=== PATIENT | female | born 1990 | race Caucasian/White ===

== ENCOUNTER → 2018-04-25 16:18 | Outpatient (CLI) | payer BC, SELFPAY | PROVIDERS: Visit Provider Obstetrics & Gynecology | DX: Z12.4 Encounter for screening for malignant neoplasm of cervix (principal); Z11.3 Encounter for screening for infections with a predominantly sexual mode of transmission ==

== ENCOUNTER → 2018-05-15 14:29 | Outpatient (CLI) | payer BC, SELFPAY ==
[2018-05-15 15:54] LABS: Absolute Lymphocyte Count 1.27 X10^3/ul (0.83-4.51); Absolute Neutrophil Count 3.3 X10^3/uL (2.0-7.7); Basophil# 0.01 X10^3/uL; Basophil% 0.2 % (0-1); Hematocrit 36.6 % (37-47); Hemoglobin 12.3 g/dl (12.0-15.0); Lymphocyte # 1.27 X10^3/ul (4.0); Lymphocyte % 25.3 % (19-41); Mean Corp Hgb Conc 33.6 g/gl (32-36); Mean Corpuscular Volume 89.3 fL (81-99); Mean Platelet Vol. 9.9 fl (6.2-12.0); Monocyte# 0.37 X10^3/uL; Monocyte% 7.4 % (0-10); Neutrophil # 3.27 X10^3/uL (2.7-7.7); Neutrophil % 65.1 % (47-70); Platelet Count 241 K/mm3 (150-450); RBC Distribution Width CV 11.9 % (11.6-14.6); RBC Distribution Width SD 38.5 fl (35.1-43.9)
[2018-05-15 15:56] LABS: POSITIVE COUNT NO; POSITIVE DIFFERENTIAL NO; POSITIVE MORPHOLOGY NO
[2018-05-15 16:06] LABS: Color, Urine Yellow (Yellow); Glucose, Dipstick Normal (Normal); Ketone-Dipstick Negative (Negative); Leukocyte Esterase-Dipstick Negative /ul (Negative); Nitrite-Dipstick Negative (Negative); Occult Blood-Urine Negative /ul (Negative); Protein-Dipstick Negative (Negative); Specific Gravity, Urine 1.025 (1.002-1.030); Urine Bilirubin Dipstick Negative (Negative); Urine Clarity Clear (Clear); Urine Urobilinogen Normal (Normal)
[2018-05-15 17:00] LABS: HIV - WCH Non-Reactive (Nonreactive); Rubella IgG 461.6 IU/mL
[2018-05-15 17:34] LABS: Amphetamine Urine VISTA NEGATIVE (<1000 ng/mL); Barbiturate Urine VISTA NEGATIVE (< 200 ng/mL); Benzodiazepine Urine VISTA NEGATIVE (< 200 ng/mL); Cocaine Urine VISTA NEGATIVE (< 300 ng/mL); Ecstacy Urine VISTA NEGATIVE (< 500 ng/mL); Methadone Urine VISTA NEGATIVE (< 300 ng/mL); PCP Urine VISTA NEGATIVE (< 25 ng/mL); THC Urine VISTA NEGATIVE (< 50 ng/mL); Vista UDS pH Range 5
[2018-05-17 11:20] LABS: HEPATITIS B SURFACE AG Negative (Negative); Hep C Antibodies <0.1 s/co ratio (0.0-0.9)
[2018-05-19 03:49] LABS: Prenatal RPR NONREACTIVE (NONREACTIVE)
== END ==
PROVIDERS: Visit Provider Obstetrics & Gynecology
DX: Z34.81 Encounter for supervision of other normal pregnancy, first trimester (principal)
CPT/HCPCS: 36415; 80307; 81002; 84443; 85025; 86703; 86762; 86803; 87340

== ENCOUNTER → 2018-09-25 09:08 | Outpatient (CLI) | payer BC, SELFPAY ==
[2018-09-25 11:01] LABS: Hematocrit 30.8 % (37-47); Hemoglobin 10.3 g/dl (12.0-15.0); Mean Corp Hgb Conc 33.4 g/gl (32-36); Mean Corpuscular Hgb 30.2 pg (27.0-32.0); Mean Corpuscular Volume 90.3 fL (81-99); Mean Platelet Vol. 9.5 fl (6.2-12.0); Platelet Count 203 K/mm3 (150-450); RBC Distribution Width SD 39.5 fl (35.1-43.9); Red Blood Count 3.41 M/mm3 (4.2-5.4); White Blood Count 6.8 K/mm3 (4.4-11.0)
[2018-09-25 11:05] LABS: Glucose Challenge Gest 1H 50g 72 mg/dL (70-140); Scan Indicated on CBC? Y/N NO
== END ==
PROVIDERS: Visit Provider Obstetrics & Gynecology
DX: Z34.83 Encounter for supervision of other normal pregnancy, third trimester (principal)
CPT/HCPCS: 36415; 82950; 85027; 86850; 86900

== ENCOUNTER → 2018-11-20 10:40 | Outpatient (CLI) | payer BC, SELFPAY | PROVIDERS: Visit Provider Obstetrics & Gynecology | DX: Z36.85 Encounter for antenatal screening for Streptococcus B (principal) | CPT/HCPCS: 87077; 87081; 87186 ==

== ENCOUNTER 2018-12-17 21:30 | Outpatient (CLI) | payer BC, SELFPAY ==
[2018-12-17 22:01] VITALS: BMI 28.6
--- NOTE | 2018-12-17 23:55 | OB.TRI.NOTE ---
- Problem List (1) False labor Status: Acute History of Present Illness Date of Service: 12/17/18 Was patient seen by the physician?: No Reason For Visit: R/O LABOR Final EPI: 12/17/18 Final EPI Source: US <20 weeks Gestational age: 40 Weeks History of Present Illness: 28-yo with c/o contractions Allergies Sulfa (Sulfonamide Antibiotics) Allergy (Verified 12/17/18 21:59) Hives NST - FHR Rate Baby A Baseline: 125 Accelerations:: 15 x 15 Decelerations:: None NST Reactive:: Yes FHR Category:: Category I Uterine Activity:: 2-4/10 min Impression/Plan 28yo @ 40wga with false labor, Cat I FHR -SVE unchanged x 2 -d/c home
== END 2018-12-17 23:50 | disposition home or self-care (01) ==
LOC: WPOUT 21:36 → WP 21:36
PROVIDERS: Visit Provider Obstetrics & Gynecology
DX: O47.1 False labor at or after 37 completed weeks of gestation (principal); Z3A.40 40 weeks gestation of pregnancy
CPT/HCPCS: 59025; 59050; 99218; G0378

== ENCOUNTER 2018-12-18 09:35 | Inpatient (IN) | payer BC, SELFPAY ==
[2018-12-17 22:01] VITALS: BMI 28.6
[2018-12-18 09:55] VITALS: BMI 28.6
[2018-12-18] MEDS: Lactated Ringers 1,000 ML 50 ML IV ×3 (10:00→16:57)
[2018-12-18 10:18] LABS: Absolute Lymphocyte Count 1.02 X10^3/ul (0.83-4.51); Absolute Neutrophil Count 7.7 X10^3/uL (2.0-7.7); Basophil# 0.01 X10^3/uL; Basophil% 0.1 % (0-1); Eosinophil# 0.01 X10^3/uL; Eosinophils% 0.1 % (0-5); Hematocrit 31.7 % (37-47); Hemoglobin 10.6 g/dl (12.0-15.0); Lymphocyte # 1.02 X10^3/ul (4.0); Mean Corp Hgb Conc 33.4 g/gl (32-36); Mean Corpuscular Hgb 28.1 pg (27.0-32.0); Mean Corpuscular Volume 84.1 fL (81-99); Mean Platelet Vol. 10.7 fl (6.2-12.0); Monocyte% 5.4 % (0-10); Neutrophil # 7.72 X10^3/uL (2.7-7.7); Neutrophil % 83.2 % (47-70); Platelet Count 235 K/mm3 (150-450); RBC Distribution Width CV 12.5 % (11.6-14.6); RBC Distribution Width SD 38.2 fl (35.1-43.9); Red Blood Count 3.77 M/mm3 (4.2-5.4); White Blood Count 9.3 K/mm3 (4.4-11.0)
[2018-12-18 10:19] LABS: POSITIVE COUNT NO; POSITIVE DIFFERENTIAL NO; POSITIVE MORPHOLOGY NO
[2018-12-18] MEDS: fentaNYL-bupivacaine (epidural) 100 ML BAG EPIDURAL ×2 (11:05→16:18)
[2018-12-18] MEDS: Oxytocin 30 units/NS 500 ml 30 UNITS/500 ML IV.SOLN IV (12:53)
--- NOTE | 2018-12-18 13:21 | NURSING ---
This nursing staff development coordinator reviewed the documentation completed by Familia Bueno and also observed the IV insertion.
--- NOTE | 2018-12-18 17:32 | PCM.PN.BLA ---
Progress Note LABOR PROGRESS NOTE Epidural redosed, comfortable. AVSS pitocin at 4 mIU/min EFM 130-140s avg variability. Accels noted. Variables noted. UCs q 1 1/2 - 3 1/2 mins CX: 6/100/-1 VTX LOP Bloody show noted. Scant bld tinge in catheter tubing. A/P: 40 3/7 wk labor. epidural; AROM and Pitocin augmentation. Anticipate . Position changes to facilitate rotation descent. Anticipate
[2018-12-18] MEDS: Amnioinfusion- 0.9% NS 1,000 ML IV.SOLN. INTRA-UTER (17:45)
[2018-12-18] MEDS: Ondansetron 4 MG/2 ML Vial IV (18:44)
[2018-12-18] MEDS: Oxytocin 30 units/NS 500 ml 30 UNITS/500 ML IV.SOLN 334 UNITS IV (21:39)
--- NOTE | 2018-12-18 22:01 | PCM.OB.VAG ---
Vaginal Delivery Maternal Presentation: Active Labor 40 3/7 wkl UCs Amniotic Membrane Rupture Type: Artificial Amniotic Fluid Description: Clear Final EPI: 12/15/18 Final EPI Source: US <20 weeks Gestational age: 40 Weeks and 3 Days Date of Procedure: 12/18/18 Pre-Operative Diagnosis: 40 3/7 wk labor Post-Operative Diagnosis: same Surgery/ Procedure Performed: Vacuum Assisted Vaginal Delivery - at +2 station due to maternal exhaustion. Epidural in place, not working. Uribe catheter in place. Fully dilated Type of Anesthesia: None Description of Procedure: Single pull in green zone at +2 station with uribe catheter in place, epidural catheter in place but not working. Resulted in vaginal delivery of a malin male. Ap 8/9 over intact perineum to 2nd deg posterior vaginal laceration. CAN x one reduced. Shoulders delivered easily. Infant to maternal abdomen for stimulation. Insurance Sales Supervisor, RT, and additional nursing in room 2/2 vacuum assist PP exam repair needed 2nd deg posterior vaginal and perineal laceration. 1% lidocaine and 3-0 vicryl for this. Placenta delivered by spont expulsion 3V cord, normal appearing intact with trailing membranes. Pt and infant tolerated delivery well to recovery stable. Ray clayton and needle counts correct x two. Sharps to sharp container EBL 300 cc Presentation: Vertex, SISSY Placental Delivery Description: Spontaneous, Expressed Placenta Disposition: [facility] Cord Vessel Description: 3 Vessels Cord Gases drawn per routine: VBG Cord Entanglement: Around neck x 1, loose Drain: Uribe to straight drain Estimated Blood Loss: 300 A gender: Male (1 minute): 8 (5 minute): 9 Episiotomy Description: None Laceration: Midline, Perineal Extension/lac, Vaginal Extension/lac - repaired under 1% lidocaine local to hemostatic, intact with 3-0 vicryl., 2nd degree Medications given after delivery: IV Pitocin Complications: None
--- NOTE | 2018-12-18 22:07 | PCM.DCVAG ---
Discharge Diet: No Restrictions May resume sexual activity in: 4-6 weeks Additional Activity Instructions:: Nothing in the vagina for 4-6 weeks. You may return to work/school in 6 weeks. Additional Instructions: If you experience any of the following, contact your healthcare provider. Bleeding that soaks a pad every hour for 2 hours Fever 100.4 or higher Unrelieved abdominal pain Problems urinating (including inability to urinate or burning while urinating). Visual changes Severe headache Flu-like symptoms Pain or redness in one of both of your breasts Pain, warmth, tenderness or swelling in your legs, especially the calf area Frequent nausea and vomiting Symptoms of depression or anxiety If you experience any of the following, call 911 or go to the nearest Emergency Room. Chest pain Problems breathing Seizure activity Partial or complete paralysis of a body part, slurred speech, weakness or drooping of the face, or a sudden inability to walk or hold your balance Allergies/Adverse Reactions: Allergies Sulfa (Sulfonamide Antibiotics) Allergy (Verified 12/17/18 21:59) Hives Medications to take at Discharge Vit No.130/Iron/Folic [ Tablet] 1 tab PO DAILY 12/17/18 Please Follow Up With: Fe Pathak MD - [phone] When: Call to make an appointment with your doctor in 6 weeks. Test Results: Test results from this visit will be discussed in further detail at your follow-up appointment, if applicable. Proposed Discharge Date: 12/20/18
[2018-12-18] MEDS: Oxytocin 30 units/NS 500 ml 30 UNITS/500 ML IV.SOLN 167 UNITS IV (22:09)
--- NOTE | 2018-12-18 22:09 | DCINST_ITS ---
Discharge Diet: No Restrictions May resume sexual activity in: 4-6 weeks Additional Activity Instructions:: Nothing in the vagina for 4-6 weeks. You may return to work/school in 6 weeks. Additional Instructions: If you experience any of the following, contact your healthcare provider. * Bleeding that soaks a pad every hour for 2 hours * Fever 100.4 or higher * Unrelieved abdominal pain * Problems urinating (including inability to urinate or burning while ur inating). * Visual changes * Severe headache * Flu-like symptoms * Pain or redness in one of both of your breasts * Pain, warmth, tenderness or swelling in your legs, especially the calf area * Frequent nausea and vomiting * Symptoms of depression or anxiety If you experience any of the following, call 911 or go to the nearest Emergency Room. * Chest pain * Problems breathing * Seizure activity * Partial or complete paralysis of a body part, slurred speech, weakness or drooping of the face, or a sudden inability to walk or hold your balance Allergies/Adverse Reactions: Allergies Sulfa (Sulfonamide Antibiotics) Allergy (Verified 12/17/18 21:59) Hives Medications to take at Discharge Vit No.130/Iron/Folic [ Tablet] 1 tab PO DAILY 12/17/18 Please Follow Up With: Fe Pathak MD - [phone] When: Call to make an appointment with your doctor in 6 weeks. Test Results: Test results from this visit will be discussed in further detail at your follow- up appointment, if applicable. Proposed Discharge Date: 12/20/18
[2018-12-19] VITALS: BP 118/68; PULSE 83; RESP 16; TEMP 37; O2SAT 98
[2018-12-19] MEDS: Acetaminophen 500 MG Tablet 1000 MG PO ×2 (02:12→17:23)
[2018-12-19 04:20] VITALS: BP 106/55; PULSE 66; RESP 15; TEMP 36.6; O2SAT 96
[2018-12-19] MEDS: Ibuprofen 600 MG Tablet PO (07:44)
--- NOTE | 2018-12-19 08:28 | PCM.PN.OB ---
Subjective: PPD#1 vacuum asisted vaginal delivery doing well. Tylenol prn for pain. - Physical Exam General: Alert, Oriented x3, Cooperative, No apparent distress HEENT: Atraumatic Neck: Supple Abdomen: Soft - Fundus firm NT at umbilicus Psych/Mental Status: Normal Affect Vital Signs Temp Pulse Resp BP Pulse Ox 97.8 F 66 15 106/55 L 96 12/19/18 04:20 12/19/18 04:20 12/19/18 04:20 12/19/18 04:20 12/19/18 04:20 Oxygen Delivery Method Room Air Weight: 83.007 kg Body Mass Index (BMI) 28.6 Intake and Output for Last 24 Hours 12/17/18 12/18/18 12/19/18 23:59 23:59 23:59 Intake Total 3349 / 3349 834 / 834 Output Total 300 / 300 950 / 950 Balance 3049 / 3049 -116 / -116 Laboratory Tests Past 24 Hrs 12/18/18 12/18/18 10:00 10:00 WBC 9.3 RBC 3.77 L Hgb 10.6 L Hct 31.7 L MCV 84.1 MCH 28.1 MCHC 33.4 RDW 12.5 RDW Differential 38.2 Plt Count 235 MPV 10.7 Immature Gran % (Auto) 0.200 Neut % (Auto) 83.2 H Lymph % (Auto) 11.0 L Hardee % (Auto) 5.4 Eos % (Auto) 0.1 Baso % (Auto) 0.1 Absolute Neuts (auto) 7.7 Absolute Lymphs (auto) 1.02 Total Counted Not Reportable Blood Type A POSITIVE Antibody Screen NEGATIVE Medical Necessity - Tobacco Use Smoking Status: Never smoker Assessment/Plan PPD#1 vaginal delivery, vacuum assisted Stable pp. Continue care GBS positive, adequate tx in labor
[2018-12-19 08:35] VITALS: BP 126/77; PULSE 68; RESP 18; TEMP 36.4
[2018-12-19 12:00] VITALS: BP 111/71; PULSE 81; RESP 17; TEMP 36.6
[2018-12-19] MEDS: Prenatal Vits Tablet 1 TABLET PO (12:54)
[2018-12-19 17:00] VITALS: BP 111/69; PULSE 91; RESP 14; TEMP 36.8
[2018-12-19 21:11] VITALS: BP 106/70; PULSE 79; RESP 17; TEMP 36.6; O2SAT 98
[2018-12-20 01:47] VITALS: BP 123/54; PULSE 71; RESP 17; TEMP 36.4; O2SAT 97
[2018-12-20] MEDS: Ibuprofen 600 MG Tablet PO ×2 (01:57→11:27)
--- NOTE | 2018-12-20 07:49 | PCM.PN.OB ---
Subjective: PPD#2 vaginal delivery, vacuum assisted. Doing e2wll. Nursing, and using nipple haro to help with this. Baby sleeping a lot. Baby is in SCN. Hypoglycemia. Pain control adequate. Reviewed hotel status if baby is not released. - Physical Exam General: Alert, Oriented x3, Cooperative, No apparent distress HEENT: Atraumatic Neck: Supple Abdomen: Soft - Fundus firm NT at 1-2 cm inferior to umbilicus Psych/Mental Status: Normal Affect Vital Signs Temp Pulse Resp BP Pulse Ox 97.6 F L 71 17 123/54 H 97 12/20/18 01:47 12/20/18 01:47 12/20/18 01:47 12/20/18 01:47 12/20/18 01:47 Oxygen Delivery Method Room Air Weight: 83.007 kg Body Mass Index (BMI) 28.6 Intake and Output for Last 24 Hours 12/18/18 12/19/18 12/20/18 23:59 23:59 23:59 Intake Total 3349 / 3349 834 / 834 Output Total 300 / 300 950 / 950 Balance 3049 / 3049 -116 / -116 Medical Necessity - Tobacco Use Smoking Status: Never smoker Assessment/Plan PPD#2 vaginal delivery, vacuum assisted Stable pp. Dischg home today. To hotel if baby is not released (baby is in SCN due to hypoglycemia)
[2018-12-20 09:00] VITALS: BP 125/71; PULSE 81; RESP 20; TEMP 36.6; O2SAT 100
[2018-12-20] MEDS: Senna/Docusate Sodium 1 Tablet PO (09:17)
[2018-12-20] MEDS: Prenatal Vits Tablet 1 TABLET PO (09:17)
--- NOTE | 2018-12-21 15:15 | CASEMGMT ---
Social Work Labor and Delivery Unit Referral date: 12.19.2017 Referral source: software program manager Dr. Loving Date of intervention: 12.21.2017, [id number] Reason for referral: Baby transferred into the [facility].?; Upon chart review also noted that mother of baby is a first time mother and maternal history of depression. ? History obtained from:?Medical record and patient/mother of baby (ELAYNE) Marycarmen Solomon. ??This automobile and property underwriter is the primary social group worker for the labor and delivery unit at [facility]. ??For continuity of care of families on the [facility] this automobile and property underwriter also provides social work services to the [facility]. ? Household composition:?MOB lives with her parents. ?Intends to take mary Mallory to this home. ?MOB reports home situation is safe and adequate. ?? ? Patient's parent/guardian status:?ELAYNE Solomon is age 30 and FOB is Nabil Peters. ??MOB and FOB are currently together and involved for about a year. ??FOB has 2 other children from a previous relationship, ages 3 and 5 years old. ??Mary Mallory is the first child for MOB. ?? ? Medical History:?MOB is G2, P0 to 1 after delivering Mohamud. ?MOB with care starting at 9 weeks gestation. ??Medical records indicate MOB has history of narcolepsy. ??Mary Mallory born on 12.18.2020 weighing 8 pounds 11 ounces. ?apgars 8 and 9 at 1 and 5 minutes of life. ?? Educational Status:??MOB has a college degree in the sciences. ?No issues with reading, writing, or learning comprehension. ? Health Care Coverage:?[employer] ? 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 ??Will be able to take up to 12 weeks maternity leave if needed or desired. ?6 weeks will be financially covered. ? Childcare/Caregiver(s):?MOB and then supplemental help from MOB's parents.?? ? Transportation:?No issues. ? Programs/Agencies Involved:?No agency involvement. ??Denies being eligible for WIC. ?Declines Help [facility] referral. ? Behavioral Health Issues:?MOB reports as a teen was in counseling and on medication for depression. ??MOB reports as an adult no issues. Denies any thoughts, plans, intent or attempts regarding suicide currently or in the past. ???MOB denies any drug and alcohol usage for self. ?Does drink socially but not while . ?Negative drug screen done prenatally on 05.15.2019. ???MOB reports there is some history of depression and/or anxiety; did not expand on which. ? ? Family Stressors:? unplanned and MOB did have a hard time initially as had just gotten and one of the reasons for such is that ex- did not want to have children. ?MOB reports that becoming so quickly was an adjustment but MOB is accepting and reports to feel a connection to this baby. ??Baby going into the [facility] was stressful but MOB reports things are looking in a positive light for baby, so this has been helpful. ? ? Support Systems:?MOB reports FOS Nabil is a good support to MOB. ?MOB reports her parent and friends are also supportive. ?MOB will have help from family at home going. ? Assessment MOB pleasant and cooperative with social work assessment. ?MOB was already discharged as a patient from [facility] but continues to stay on the labor and delivery unit as a courtesy and in order to be close to baby and provide care while baby continues with hospitalization. MOB held good eye contact and was polite. ?MOB reports to have enough support when returns home with baby, and reports to have needed supplies to care for baby. ?MOB reports plan to provide breast milk and if needs to supplement with formula will be okay with this. ?MOB reports ability to purchase formula. ??MOB reports to feel a connection to baby as well. ??MOB listened to education on depression, risks for such, and importance of seeking out help and support should symptoms arise. ?MOB able to give appropriate responses to shaken baby prevention and safe sleeping. ??MOB denies any needs for home going but did accept a [facility] resources list, as well as a depression packet for home going. ?No identified concerns by nursing regarding Mother/child interactions or bonding. ? ? Plan MOB has already been discharged as a patient. MOB will continue to stay in a courtesy room on the labor and delivery unit as space allow whiel baby is admitted to the [facility]. Plan for Baby to discharge home to MOB when medically stable. ?Resource information given to MOB for home going but declines referrals to services [place] [facility] [place] No other needs requested or indicated. -Princess Deshawn, BARGE HAND-S, NEGATIVE SPOTTER
== END 2018-12-20 11:30 | disposition home or self-care (01) | DRG 807 ==
PROVIDERS: Admitting Provider Obstetrics & Gynecology; Referring Provider Obstetrics & Gynecology; Visit Provider Obstetrics & Gynecology
DX: O75.81 Maternal exhaustion complicating labor and delivery (principal); Z37.0 Single live birth; G47.421 Narcolepsy in conditions classified elsewhere with cataplexy; O70.1 Second degree perineal laceration during delivery; O69.81X0 Labor and delivery complicated by cord around neck, without compression, not applicable or unspecified; O99.824 Streptococcus B carrier state complicating childbirth; Z3A.40 40 weeks gestation of pregnancy
CPT/HCPCS: 59025; 59050; 85025; 86850; 86900; 99218; J7030; J7120; G0378; J0290; J2405

== ENCOUNTER → 2020-02-13 13:42 | Outpatient (CLI) | payer BC, SELFPAY ==
[2020-02-15 20:07] LABS: Age Gdln ACOG Testing 30-65 (.)
[2020-02-15 21:21] LABS: HPV APTIMA, High Risk Negative (Negative); HPV Reflexed? YES, CHARGE PATIENT
== END ==
PROVIDERS: Visit Provider Obstetrics & Gynecology
DX: Z12.4 Encounter for screening for malignant neoplasm of cervix (principal)
CPT/HCPCS: 87624; 88175; G0145

== ENCOUNTER 2020-12-24 14:02 | Outpatient (RCR) | payer OTHER, SELFPAY | END 2021-02-24 23:59 | LOC: IMMUN 14:02 | PROVIDERS: PCP Family Medicine; Visit Provider Family Medicine | DX: Z23 Encounter for immunization (principal) | CPT/HCPCS: 0001A; 0002A; 91300 ==

== ENCOUNTER → 2022-12-08 | Outpatient (CLI) | payer OTHER, SELFPAY ==
[2022-12-10 22:07] LABS: Chlamydia By Nucleic Acid AMP Negative (Negative)
[2022-12-11 08:55] LABS: Gonococcus By Nucleic Acid AMP Negative (Negative)
== END | disposition home or self-care (01) ==
LOC: LABSPEC 16:56
PROVIDERS: Visit Provider Advanced Practice Midwife
DX: Z76.89 Persons encountering health services in other specified circumstances (principal)
CPT/HCPCS: 87491; 87591

== ENCOUNTER → 2023-10-20 | Outpatient (CLI) | payer OTHER, SELFPAY ==
--- OUTSIDE RECORDS SUMMARY | 2023-10-20 19:36 | XMS RPT_ITS | CCD ---
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 Name Role Phone Unavailable Primary Care Provider UnavailAlejandro Sanchez MD Primary Care Provider Alejandro Mc MD Primary Care Provider Alejandro Mc MD Primary Care Provider KAYLEY WEINSTEIN JR Referring Unavailable ALEJANDRO MC Primary Care Unavailable ALEJANDRO MC Primary Care Unavailable KAYLEY WEINSTEIN JR Attending Unavailable ALEJANDRO MC Primary Care Unavailable KATHRIN ALONZO Attending Unavailable ALBERT ALEJANDRO Beverly Primary Care Unavailable JESU MCGINNIS Attending Unavailpati MC ALEJANDRO Beverly Primary Care Unavailable YO LIGHT Attending Unavailable ALBERT ALEJANDRO [facility] Primary Care Unavailable Allergies Allergy Classification Reported Allergen(s) Allergy Type Date of Onset Reaction(s) Facility (12 sources) Sulfonamides (Antibiotic); Translations: [SULFA (SULFONAMIDE ANTIBIOTICS)] Drug Allergy 03-08-2006 [facility] Work Phone: Medications Current Medications Medication Drug Class(es) Dates Sig (Normalized) Sig (Original) amoxicillin 500 mg oral tablet (1 source) Penicillin-class Antibacterial Start: 03-25-2023 End: 04-04-2023 take 1 tablet by mouth twice daily Amoxicillin 500 mg tablet Take 1 tablet by mouth twice daily for 10 days. 20 tablet 0 03/25/2023 04/04/2023 Active Completed/Discontinued Medications Medication Drug Class(es) Dates Sig (Normalized) Sig (Original) [id number] 200 actuat albuterol 0.09 mg/actuat metered dose inhaler (17 sources) beta2-Adrenergic Agonist Start: 02-13-2022 take 2 puff(s) by inhalation every six hours as needed albuterol HFA (PROAIR HFA) 90 mcg/actuation inhaler Inhale 2 Puffs as instructed every 6 hours as needed. 1 Inhaler 0 02/13/2022 Active Problems Active Problems Problem Classification Problem Date Documented Date Episodic/Chronic Chronic obstructive pulmonary disease and bronchiectasis (1 source) Bronchitis; Translations: [Bronchitis, not specified as acute or chronic] Episodic Nutritional deficiencies (1 source) Vitamin D deficiency; Translations: [Vitamin D deficiency, unspecified] Chronic Other aftercare (2 sources) Drug therapy finding; Translations: [Other custodial (current) drug therapy] Episodic Other aftercare (1 source) Other custodial (current) drug therapy; Translations: [On stimulant medication] Onset: 04-29-2023 Episodic Other hereditary and degenerative nervous system conditions (15 sources) Restless legs; Translations: [Restless legs syndrome] Onset: 01-01-2015 01-01-2015 Chronic Other hereditary and degenerative nervous system conditions (1 source) Restless legs syndrome; Translations: [RLS (restless legs syndrome)] Onset: 01-01-2015 Chronic Other upper respiratory infections (1 source) Streptococcal sore throat; Translations: [Streptococcal pharyngitis] Episodic Residual codes; unclassified (11 sources) Sleeptalking; Translations: [Other sleep disorders] Onset: 01-01-2015 01-01-2015 Chronic Residual codes; unclassified (17 sources) 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; Translations: [Idiopathic hypersomnia with long sleep time] Onset: 03-26-2015 03-26-2015 Chronic Residual codes; unclassified (1 source) Idiopathic hypersomnia with long sleep time; Translations: [Idiopathic hypersomnia with long sleep time] Onset: 03-26-2015 Chronic Past or Other Problems Problem Classification Problem Date Documented Da te Episodic/Chronic Immunizations and screening for infectious disease (6 sources) Patient encounter status; Translations: [Encounter for immunization] Onset: 07-12-2022 Episodic Nutritional deficiencies (12 sources) Iron deficiency; Translations: [Iron deficiency] Onset: 01-01-2015 03-26-2015 Episodic Other screening for suspected conditions (not mental disorders or infectious disease) (2 sources) Cancer cervix screening status; Translations: [Encounter for screening for malignant neoplasm of cervix] Onset: 07-12-2022 Episodic Results Test Name Value Interpretation Reference Range Facil ity Vital Signs Date Time Vital Sign Value Performing Clinician Kolton santiago 03-25-2023 07:53-0400 Body temperature 98.8 [degF] Candelaria Athy PA-C Work Phone: [facility] 03-25-2023 07:53-0400 Body weight 73.66 kg Candelaria Athy PA-C Work Phone: [facility] 03-25-2023 07:53-0400 Diastolic blood pressure 70 mm[Hg] Candelaria Athy PA-C Work Phone: [facility] 03-25-2023 07:53-0400 Heart rate 97 /min Candelaria Athy PA-C Work Phone: [facility] 03-25-2023 07:53-0400 Respiratory rate 18 /min Candelaria Athy PA-C Work Phone: [facility] 03-25-2023 07:53-0400 SaO2% (BldA) [Mass fraction] 98 % Candelaria Athy PA-C Work Phone: [facility] 03-25-2023 07:53-0400 Systolic blood pressure 120 mm[Hg] Candelaria Athy PA-C Work Phone: [facility] 03-03-2023 11:08-0400 Body height 170.2 cm Kayley Weinstein Jr., MD Work Phone: [facility] 03-03-2023 11:08-0400 Body weight 73.85 kg Kayley Weinstein Jr., MD Work Phone: [facility] 03-03-2023 11:08-0400 Diastolic blood pressure 80 mm[Hg] Kayley Weinstein Jr., MD Work Phone: [facility] 03-03-2023 11:08-0400 Heart rate 94 /min Kayley Weinstein Jr., MD Work Phone: [facility] 03-03-2023 11:08-0400 SaO2% (BldA) [Mass fraction] 99 % Kayley Weinstein Jr., MD Work Phone: [facility] 03-03-2023 11:08-0400 Systolic blood pressure 127 mm[Hg] Kayley Weinstein Jr., MD Work Phone: [facility] 07-12-2022 07:38-0400 Body weight 71.67 kg Kathrin Alonzo LACTATION SPECIALIST.CORPORATE CLAIMS EXAMINER Work Phone: [facility] 07-12-2022 07:38-0400 Diastolic blood pressure 72 mm[Hg] Kathrin Alonzo LACTATION SPECIALIST.CORPORATE CLAIMS EXAMINER Work Phone: [facility] 07-12-2022 07:38-0400 Heart rate 83 /min Kathrin Alonzo LACTATION SPECIALIST.CORPORATE CLAIMS EXAMINER Work Phone: [facility] 07-12-2022 07:38-0400 Respiratory rate 16 /min Kathrin Alonzo LACTATION SPECIALIST.CORPORATE CLAIMS EXAMINER Work Phone: [facility] 07-12-2022 07:38-0400 SaO2% (BldA) [Mass fraction] 99 % Kathrin Alonzo LACTATION SPECIALIST.CORPORATE CLAIMS EXAMINER Work Phone: [facility] 07-12-2022 07:38-0400 Systolic blood pressure 116 mm[Hg] Kathrin Alonzo LACTATION SPECIALIST.CORPORATE CLAIMS EXAMINER Work Phone: [facility] 02-13-2022 10:19-0400 Body temperature 98.6 [degF] Candelaria Athy PA-C Work Phone: [facility] 02-13-2022 10:19-0400 Body weight 72.12 kg Candelaria Athy PA-C Work Phone: [facility] 02-13-2022 10:19-0400 Diastolic blood pressure 94 mm[Hg] Candelaria Athy PA-C Work Phone: [facility] 02-13-2022 10:19-0400 Heart rate 107 /min Candelaria Athy PA-C Work Phone: [facility] 02-13-2022 10:19-0400 Respiratory rate 24 /min Candelaria Jessica PA-C Work Phone: [facility] 02-13-2022 10:19-0400 SaO2% (BldA) [Mass fraction] 98 % Candelaria Jessica PA-C Work Phone: [facility] 02-13-2022 10:19-0400 Systolic blood pressure 138 mm[Hg] Candelaria Jessica PA-C Work Phone: [facility] Encounters Encounter Date Encounter Type Care Provider Facility Start: 06-07-2023 Telephone encounter Kayley Weinstein MD Work Phone: Neurology Procedures Date Procedure Procedure Detail Performing Clinician Start: 03-25-2023 STREP A MOLECULAR (POC) Evert Lyn APRN.ELECTRONICS ASSEMBLER AND TESTER Work Phone: Start: 07-12-2022 INFLUENZA VACCINE QUADRIVALENT 6 MO - 64 YRS IM Kathrin Alonzo LACTATION SPECIALIST.CORPORATE CLAIMS EXAMINER Work Phone: Start: 07-12-2022 PFIZER-BIONTECH COVI D-19 BIVALENT BOOSTER VACCINE, AGE 12+ YR Kathrin Alonzo LACTATION SPECIALIST.CORPORATE CLAIMS EXAMINER Work Phone: Start: 05-13-2022 Adult depression scr eening assessment Lakisha Rojo LACTATION SPECIALIST.ELECTRONICS ASSEMBLER AND TESTER Work Phone: Start: 02-13-2022 Adult depression scr eening assessment Lakisha Rojo LACTATION SPECIALIST.ELECTRONICS ASSEMBLER AND TESTER Work Phone: Start: 10-28-2021 Adult depression scr eening assessment Candelaria Jessica PA-C Work Phone: Plan of Treatment Date Care Activity Detail Author Start: 02-07-2024 Urine microalbumin profile [facility] Start: 07-12-2023 HPV TESTING HPV TESTING [facility] Immunizations Immunization Date Immunization Notes Care Provider Malina horowitz 07-12-2022 COVID-19 booster vaccine, age 12+ yr, bivalent (PFIZER-BIONTECH) Kathrin Alonzo LACTATION SPECIALIST.CORPORATE CLAIMS EXAMINER Work Phone: [facility] Work Phone: 07-12-2022 influenza, injectabl e, quadrivalent, contains preservative Kathrin Alonzo LACTATION SPECIALISTAnaCORPORATE CLAIMS EXAMINER Work Phone: [facility] Work Phone: 07-12-2022 influenza virus vacc ine, unspecified formulation Kayley Weinstein Jr., MD Work Phone: [facility] 02-06-2014 tetanus toxoid, redu natanael diphtheria toxoid, and acellular pertussis vaccine, adsorbed Candelaria Athy PA-C Work Phone: [facility] 04-13-2007 meningococcal polysaccharide vaccine (MPSV4) Candelaria Athy PA-C Work Phone: [facility] 03-24-2004 diphtheria and tetan us toxoids, adsorbed for pediatric use Candelaria Athy PA-C Work Phone: [facility] Work Phone: 03-14-2002 hepatitis B vaccine, pediatric or pediatric/adolescent dosage Candelaria Athy PA-C Work Phone: [facility] Work Phone: 04-07-2001 hepatitis B vaccine, pediatric or pediatric/adolescent dosage Candelaria Athy PA-C Work Phone: [facility] Work Phone: 02-27-2001 hepatitis B vaccine, pediatric or pediatric/adolescent dosage Candelaria Athy PA-C Work Phone: [facility] Work Phone: 02-27-2001 measles, mumps and rubella virus vaccine Candelaria Athy PA-C Work Phone: [facility] Work Phone: 11-24-1993 diphtheria and tetan us toxoids, adsorbed for pediatric use Candelaria Athy PA-C Work Phone: [facility] Work Phone: 11-24-1993 diphtheria, tetanus toxoids and acellular pertussis vaccine Candelaria Athy PA-C Work Phone: [facility] Work Phone: 11-24-1993 poliovirus vaccine, inactivated Candelaria Athy PA-C Work Phone: [facility] Work Phone: 05-09-1992 haemophilus influenz ae type b vaccine, HbOC conjugate Candelaria Jessica PA-C Work Phone: [facility] Work Phone: 04-14-1990 diphtheria, tetanus toxoids and acellular pertussis vaccine Candelaria Coltony PA-C Work Phone: [facility] Work Phone: 04-14-1990 poliovirus vaccine, inactivated Candelaria Coltony PA-C Work Phone: [facility] Work Phone: 09-26-1989 measles, mumps and rubella virus vaccine Candelaria Coltony PA-C Work Phone: [facility] Work Phone: 03-31-1989 DTaP-Haemophilus influenzae type b conjugate vaccine Candelaria Seguray PA-C Work Phone: [facility] Work Phone: 02-02-1989 DTaP-Haemophilus influenzae type b conjugate vaccine Candelaria Coltony PA-C Work Phone: [facility] Work Phone: 1988 DTaP-Haemophilus influenzae type b conjugate vaccine Candelaria Athy PA-C Work Phone: [facility] Work Phone: 1988 poliovirus vaccine, inactivated Candelaria Coltony PA-C Work Phone: [facility] Work Phone: 1988 poliovirus vaccine, inactivated Candelaria Athy PA-C Work Phone: [facility] Work Phone: Payers Date Payer Category Payer Private Health Insurance MEL Magaña SABINO RON [id number] 2021-[facility] [phone] YANG [id number] GRISELDA ELAINE [id number] Open Access [id number] 2021 Private Health Insurance MEL VELASQUEZ [id number] 2021-Present [phone] [address] [place] [address] Open Access [id number] 2021 Private Health Insurance [id number] Social History Date Type Detail Facility [facility]: [facility] Start: 02-13-2022 End: 03-25-2023 Alcohol intake Current drinker of alcohol (finding) [facility] Start: 08-26-2020 End: 02-13-2022 Alcohol intake [facility] Start: 1990 Sex Assigned At Not on file [facility] Start: 02-03-2022 End: 07-12-2022 Exposure to SARS-CoV-2 (event) Not sure [facility] Start: 02-26-2011 End: 03-03-2023 Tobacco use and exposure Smokeless tobacco non-user [facility] Work Phone: Start: 07-12-2022 [facility] Work Phone: History of tobacco use Cigarette Smoker [facility] Work Phone: Start: 07-09-2022 History SDOH Alcohol Frequency 2 [facility] Start: 07-09-2022 History SDOH Alcohol Std Drinks 1 [facility] Start: 07-09-2022 History SDOH Social Connections Phone 5 [facility] Start: 07-09-2022 History SDOH Social Connections Get Together 3 [facility] Start: 07-09-2022 History SDOH Physica l Activity DPW 4 [facility] Start: 03-03-2023 [facility] History of tobacco use Current smoker [facility] Start: 08-26-2020 End: 07-08-2022 Social connection and isolation panel [facility] Do you belong to any clubs or organizations such as hindu groups, unions, fraternal or athletic groups, or school groups? Yes [facility] Are you now , , , , never or living with a partner? [facility] How often to you hav e a drink containing alcohol? Monthly or less [facility] How many standard dr inks containing alcohol do you have on a typical day? 1 or 2 [facility] How often do you hav e 6 or more drinks on 1 occasion? Never [facility] How hard is it for y ou to pay for the very basics like food, housing, medical care, and heating Not very hard [facility] Adult Depression Screening Assessment 0 [facility] Do you feel stress - tense, restless, nervous, or anxious, or unable to sleep at night because your mind is troubled all the time - these days [OSQ] Only a little [facility] (I/We) worried wheth er (my/our) food would run out before (I/we) got money to buy more. Never true [facility] In the past 12 month s, was there a time when you were not able to pay the mortgage or rent on time? No [facility] Clinical Notes 01-01-2015 to 06-07-2023 Telephone Encounter - Jenn Moreno [facility] - 06/07/2023 9:39 AM EDTCselma Jessica PA-C - 03/25/2023 8:51 AM EDTPatient InstructionsPatient InstructionsKayley Weinstein Jr., MD - 03/03/2023 11:17 AM EDT Note Date & Type Note Facility 06-07-2023 Miscellaneous Notes Patient has VV scheduled today, 06/07/23, with [facility]. Per provider, need to contact patient and inquire if UDS and ECG were completed outside [facility] as these will need to be completed before custodial stimulant therapy can be continued. TC to patient who states that she did not have ECG done and it is not currently scheduled. Explained to patient that this needs to be completed before extermination inspector meds can be written d/t controlled substance policy. Also explained that UDS needs completed and patient states she did have a urine lab done. Verified that this is in chart, however only the methylphenidate confirmation was drawn and it came back invalid d/t other substances in sample. Patient states she does not understand why UDS was not taken at the same time and that lab needs to fix it. Explained that she would need to give a new sample and that during her visit today, Dr. Weinstein can better explain what testing is needed and why. Patient states there is no point in having a visit if the above tests were not completed. This staff encouraged patient to keep appointment as provider could better explain what testing was needed, why, and that she would need to be seen regardless for medication compliance and continued Rx. Patient verbalized understanding and agreed to keep appointment. After phone call ended, provider notified this staff that patient cancelled appointment. Again, this staff encouraged patient to keep appointment and it was not cancelled d/t office not being willing to see patient. RADHA Oconnor documented in this encounter [facility] 03-25-2023 Note HNO ID: [id number] Author: Candelaria Jessica PA-C Service: ? Author Type: Physician Mapping Specialist Type: Progress Notes Filed: 03/25/2023 9:09 AM Note Text: This note was created using Booktroperiter. Reina Solomon is a 32 year old female. HPI Presents with sore throat, right ear pain over the past 3 days. No fever. Denies runny nose or cough. No vomiting or diarrhea. Denies sick contacts. No abdominal pain. No chest pain or shortness of breath. Review of Systems Constitutional: Positive for fatigue. HENT: Positive for ear pain and sore throat. Negative for congestion and rhinorrhea. Respiratory: Negative for cough. Cardiovascular: Negative. Gastrointestinal: Negative. Genitourinary: Negative. Musculoskeletal: Negative. All other systems reviewed and are negative. 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 [START ON 05/02/2023] methylphenidate ER (METADATE ER) 20 mg ER tablet Take 1 tablet twice daily as instructed. Do not start before May 02, 2023. 60 tablet 0 [START ON 04/02/2023] methylphenidate ER (METADATE ER) 20 mg ER tablet Take 1 tablet twice daily as instructed. Do not start before April 02, 2023. 60 tablet 0 methylphenidate ER (METADATE ER) 20 mg ER tablet Take 1 tablet twice daily as instructed. 60 tablet 0 [START ON 05/06/2023] methylphenidate (RITALIN) 10 mg tablet Take 1 tablet in afternoon as needed for hypersomnia/sleepiness. Do not start before May 06, 2023. 60 tablet 0 [START ON 04/06/2023] methylphenidate (RITALIN) 10 mg tablet Take 1/2 tab in AM and Noon and then 1 tab prn in afternoon as instructed. Do not start before April 06, 2023. 60 tablet 0 methylphenidate (RITALIN) 10 mg tablet Take 1/2 tab in AM and Noon and then 1 tab prn in afternoon as instructed. Do not start before March 11, 2023. 60 tablet 0 albuterol HFA (PROAIR HFA) 90 mcg/actuation inhaler Inhale 2 Puffs as instructed every 6 hours as needed. 1 Inhaler 0 meloxicam (MOBIC) 15 mg tablet Take 15 mg by mouth once daily. PRN Amoxicillin 500 mg tablet Take 1 tablet by mouth twice daily for 10 days. 20 tablet 0 methylphenidate (RITALIN) 10 mg tablet Take 1 tablet in afternoon as needed for hypersomnia/sleepiness. Do not start before October 06, 2022. 30 tablet 0 rOPINIRole (REQUIP) 0.25 mg tablet Take 1 tablet by mouth at bedtime as needed. 30 tablet 5 spironolactone (ALDACTONE) 100 mg tablet Take 100 mg by mouth once daily. (Patient not taking: Reported on 03/03/2023) therapeutic multivitamin (THERA VITAMIN) tablet Take 1 tablet by mouth once daily. 0 No current facility-administered medications for this visit. PAST SURGICAL HISTORY Procedure Laterality Date EXTRACTION ERUPTED TOOTH/EXR FAMILY HISTORY Problem Relation Age of Onset None Mother None Father None Sister TWIN None Brother Social History Tobacco Use Smoking status: Former Types: Cigarettes Smokeless tobacco: Never Substance Use Topics Alcohol use: Yes Alcohol/week: 1.0 standard drink Types: 1 Glasses of Wine (5oz) per week Drug use: No Objective BP 120/70 Pulse 97 Temp 37.1 ?C (98.8 ?F) (Temporal) Resp 18 Wt 73.7 kg (162 lb 6.4 oz) LMP 03/20/2023 (Approximate) SpO2 98% BMI 25.44 kg/m? Physical Exam Vitals reviewed. Constitutional: Appearance: Normal appearance. HENT: Head: Normocephalic and atraumatic. Right Ear: Tympanic membrane, ear canal and external ear normal. Left Ear: Tympanic membrane, ear canal and external ear normal. Nose: Nose normal. Mouth/Throat: Mouth: Mucous membranes are moist. Pharynx: Uvula midline. Pharyngeal swelling, oropharyngeal exudate and posterior oropharyngeal erythema present. No uvula swelling. Tonsils: Tonsillar exudate present. No tonsillar abscesses. 2+ on the right. 2+ on the left. Cardiovascular: Rate and Rhythm: Normal rate and regular rhythm. Heart sounds: Normal heart sounds. Pulmonary: Effort: Pulmonary effort is normal. Breath sounds: Normal breath sounds. Musculoskeletal: Cervical back: Neck supple. Lymphadenopathy: Cervical: Cervical adenopathy present. Skin: General: Skin is warm and dry. Neurological: General: No focal deficit present. Mental Status: She is alert. Assessment and Plan ASSESSMENT/PLAN: 1. Strep pharyngitis - ICD9: 034.0, ICD10: J02.0 - Alere Strep Test positive, no culture pending - Amoxicillin for 10 days. - Discussed supportive care treatment with fluids, rest and analgesia. - Contagious dz precautions discussed- including considered contagious until on antibiotics for 24 hours - The patient should follow up in 3-5 days if symptoms persist or worsen - STREP A MOLECULAR (POC) Candelaria Jessica PA-C [facility] 03-25-2023 History of Presen t illness Narrative This note was created using Booktroperiter. Reina Solomon is a 32 year old female. HPI Presents with sore throat, right ear pain over the past 3 days. No fever. Denies runny nose or cough. No vomiting or diarrhea. Denies sick contacts. No abdominal pain. No chest pain or shortness of breath. Review of Systems Constitutional: Positive for fatigue. HENT: Positive for ear pain and sore throat. Negative for congestion and rhinorrhea. Respiratory: Negative for cough. Cardiovascular: Negative. Gastrointestinal: Negative. Genitourinary: Negative. Musculoskeletal: Negative. All other systems reviewed and are negative. 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 [START ON 05/02/2023] methylphenidate ER (METADATE ER) 20 mg ER tablet Take 1 tablet twice daily as instructed. Do not start before May 02, 2023. 60 tablet 0 [START ON 04/02/2023] methylphenidate ER (METADATE ER) 20 mg ER tablet Take 1 tablet twice daily as instructed. Do not start before April 02, 2023. 60 tablet 0 methylphenidate ER (METADATE ER) 20 mg ER tablet Take 1 tablet twice daily as instructed. 60 tablet 0 [START ON 05/06/2023] methylphenidate (RITALIN) 10 mg tablet Take 1 tablet in afternoon as needed for hypersomnia/sleepiness. Do not start before May 06, 2023. 60 tablet 0 [START ON 04/06/2023] methylphenidate (RITALIN) 10 mg tablet Take 1/2 tab in AM and Noon and then 1 tab prn in afternoon as instructed. Do not start before April 06, 2023. 60 tablet 0 methylphenidate (RITALIN) 10 mg tablet Take 1/2 tab in AM and Noon and then 1 tab prn in afternoon as instructed. Do not start before March 11, 2023. 60 tablet 0 albuterol HFA (PROAIR HFA) 90 mcg/actuation inhaler Inhale 2 Puffs as instructed every 6 hours as needed. 1 Inhaler 0 meloxicam (MOBIC) 15 mg tablet Take 15 mg by mouth once daily. PRN Amoxicillin 500 mg tablet Take 1 tablet by mouth twice daily for 10 days. 20 tablet 0 methylphenidate (RITALIN) 10 mg tablet Take 1 tablet in afternoon as needed for hypersomnia/sleepiness. Do not start before October 06, 2022. 30 tablet 0 rOPINIRole (REQUIP) 0.25 mg tablet Take 1 tablet by mouth at bedtime as needed. 30 tablet 5 spironolactone (ALDACTONE) 100 mg tablet Take 100 mg by mouth once daily. (Patient not taking: Reported on 03/03/2023) therapeutic multivitamin (THERA VITAMIN) tablet Take 1 tablet by mouth once daily. 0 No current facility-administered medications for this visit. PAST SURGICAL HISTORY Procedure Laterality Date EXTRACTION ERUPTED TOOTH/EXR FAMILY HISTORY Problem Relation Age of Onset None Mother None Father None Sister TWIN None Brother Social History Tobacco Use Smoking status: Former Types: Cigarettes Smokeless tobacco: Never Substance Use Topics Alcohol use: Yes Alcohol/week: 1.0 standard drink Types: 1 Glasses of Wine (5oz) per week Drug use: No Objective BP 120/70 Pulse 97 Temp 37.1 C (98.8 F) (Temporal) Resp 18 Wt 73.7 kg (162 lb 6.4 oz) LMP 03/20/2023 (Approximate) SpO2 98% BMI 25.44 kg/m Physical Exam Vitals reviewed. Constitutional: Appearance: Normal appearance. HENT: Head: Normocephalic and atraumatic. Right Ear: Tympanic membrane, ear canal and external ear normal. Left Ear: Tympanic membrane, ear canal and external ear normal. Nose: Nose normal. Mouth/Throat: Mouth: Mucous membranes are moist. Pharynx: Uvula midline. Pharyngeal swelling, oropharyngeal exudate and posterior oropharyngeal erythema present. No uvula swelling. Tonsils: Tonsillar exudate present. No tonsillar abscesses. 2+ on the right. 2+ on the left. Cardiovascular: Rate and Rhythm: Normal rate and regular rhythm. Heart sounds: Normal heart sounds. Pulmonary: Effort: Pulmonary effort is normal. Breath sounds: Normal breath sounds. Musculoskeletal: Cervical back: Neck supple. Lymphadenopathy: Cervical: Cervical adenopathy present. Skin: General: Skin is warm and dry. Neurological: General: No focal deficit present. Mental Status: She is alert. Assessment and Plan ASSESSMENT/PLAN: 1. Strep pharyngitis - ICD9: 034.0, ICD10: J02.0 - Alere Strep Test positive, no culture pending - Amoxicillin for 10 days. - Discussed supportive care treatment with fluids, rest and analgesia. - Contagious dz precautions discussed- including considered contagious until on antibiotics for 24 hours - The patient should follow up in 3-5 days if symptoms persist or worsen - STREP A MOLECULAR (POC) Candelaria Jessica PA-C documented in this encounter [facility] 03-25-2023 Instructions Candelaria Jessica PA-C - 03/25/2023 8:13 AM EDT Change toothbrush day three of antibiotics You are contagious for 24 hours after starting amoxicillin documented in this encounter [facility] 03-03-2023 Note HNO ID: [id number] Author: Kayley Weinstein Jr., MD Service: ? Author Type: Physician Type: Progress Notes Filed: 03/03/2023 12:45 PM Note Text: ESTABLISHED PATIENT VISIT CHIEF COMPLAINT: Follow Up HISTORY OF PRESENT ILLNESS: Marycarmen Solomon is a 32 year old female, Ht 170.2 cm (5' 7 ) BMI 25.5 kg/m2 with a PMH significant for and per last virtual visit with Domo Light CNP on 12/02/22: Marycarmen Solomon is a 32 year old female with a PMH of iron deficiency who presents via zoom for hypersomnia and RLS follow up. PSG completed 01/21/2015 was negative for CALEB with a AHI of 0. MSLT completed 01/22/2015 was normal with MSL of 9 mins, 39 seconds and was consistent with sleep deprivation. 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 RLS occurs rarely. - Continue taking metadate ER 20 mg and methylphenidate 10 mg as directed. - Avoid driving when drowsy. - roll over loader for short naps (20-30 minutes) and use of caffeine if needed to help stay awake when driving. - Try to get at least 7-9 hours of sleep in a 24 hour period. Healthy diet and exercise can also promote better sleep. - Follow up with Dr. Weinstein for appt scheduled in February. Patient states she feels med is still working, just not as well. States overall feels more tired during the day than before. Is using the 10mg in the afternoon, 3-4PM before gets son. Otherwise takes ER dosing (20mg) twice daily (AM and shortly after noon). States feels like the ER dose has worn off. No side effects. RLS well controlled and need Requip no more than twice per week. Sleep Questionnaire Data Depression Screening 09/03/2022 12/02/2022 03/03/2023 PHQ-2 Score 0 0 0 PHQ-9 Score 2 1 2 PED PHQ-9 09/03/2022 12/02/2022 03/03/2023 Little interest or pleasure in doing things Not at all Not at all Not at all Feeling down, depressed, or hopeless Not at all Not at all Not at all Trouble falling or staying asleep, or sleeping too much Several days Not at all Several days Feeling tired or having little energy Several days Several days Several days Poor appetite or overeating Not at all Not at all Not at all Feeling bad about yourself - or that you are a failure or have let yourself or your family down Not at all Not at all Not at all Trouble concentrating on things, such as reading the newspaper or watching television Not at all Not at all Not at all Moving or speaking so slowly that other people could have noticed. Or the opposite - being so fidgety or restless that you have been moving around a lot more than usual Not at all Not at all Not at all Thoughts that you would be better off , or of hurting yourself in some way Not at all Not at all Not at all If you checked off any problems, how difficult have these problems made it for you to do your work, take care of things at home, or get along with other people? Not difficult at all Not difficult at all Not difficult at all PHQ-9 Score 2 (None-Minimal Depression) 1 (None-Minimal Depression) 2 (None-Minimal Depression) [place] Sleepiness Scale 09/03/2022 12/02/2022 03/03/2023 Score 7 (No daytime sleepiness) 6 (No daytime sleepiness) 7 (No daytime sleepiness) REVIEW OF SYSTEMS GENERAL:No weight loss, malaise or fevers. HEENT:Negative for frequent or significant headaches, No changes in hearing or vision, no nose bleeds or other nasal problems RESPIRATORY: Negative for cough, wheezing or shortness of breath. CARDIOVASCULAR: Negative for chest pain, leg swelling or palpitations. LAB/IMAGING: Those performed since patient's last visit have been reviewed. WBC (k/uL) Date Value 10/28/2020 5.18 RBC (m/uL) Date Value 10/28/2020 4.12 Hemoglobin (g/dL) Date Value 10/28/2020 12.6 Hematocrit (%) Date Value 10/28/2020 37.7 MCV (fL) Date Value 10/28/2020 91.5 MCH (pG) Date Value 10/28/2020 30.6 MCHC (g/dL) Date Value 10/28/2020 33.4 RDW-CV (%) Date Value 10/28/2020 11.6 Platelet Count (k/uL) Date Value 10/28/2020 284 MPV (fL) Date Value 10/28/2020 10.2 Glucose (mg/dL) Date Value 07/15/2021 68 (L) BUN (mg/dL) Date Value 07/15/2021 9 Creatinine (mg/dL) Date Value 07/15/2021 0.75 Sodium (mmol/L) Date Value 07/15/2021 136 Potassium (mmol/L) Date Value 07/15/2021 4.5 Chloride (mmol/L) Date Value 07/15/2021 100 CO2 (mmol/L) Date Value 07/15/2021 24 Protein, Total (g/dL) Date Value 07/15/2021 7.8 Albumin (g/dL) Date Value 07/15/2021 4.3 Calcium (mg/dL) Date Value 07/15/2021 9.6 Alkaline Phosphatase (U/L) Date Value 07/15/2021 57 Bilirubin, Total (mg/dL) Date Value 07/15/2021 0.2 AST (U/L) Date Value 07/15/2021 20 ALT (U/L) Date Value 07/15/2021 10 MEDICATIONS: ENSKYCE 0.15-0.03 mg per tablet Take 1 tablet by mouth once daily. methylphenidate ER (METADATE ER) 20 mg ER tablet Take 1 tablet twice daily as instructed. Do not start before February 09, 2023. methylphenidate ( (more content not included)... [facility] 03-03-2023 Instructions Kayley Weinstein Jr., MD - 03/03/2023 12:45 PM EDT documented in this encounter [facility] 03-03-2023 History of Presen t illness Narrative ESTABLISHED PATIENT VISIT CHIEF COMPLAINT: Follow Up HISTORY OF PRESENT ILLNESS: Marycarmen Solomon is a 32 year old female, Ht 170.2 cm (5' 7 ) BMI 25.5 kg/m2 with a PMH significant for and per last virtual visit with Domo Light CNP on 12/02/22: Marycarmen Solomon is a 32 year old female with a PMH of iron deficiency who presents via zoom for hypersomnia and RLS follow up. PSG completed 01/21/2015 was negative for CALEB with a AHI of 0. MSLT completed 01/22/2015 was normal with MSL of 9 mins, 39 seconds and was consistent with sleep deprivation. 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 RLS occurs rarely. - Continue taking metadate ER 20 mg and methylphenidate 10 mg as directed. - Avoid driving when drowsy. - roll over loader for short naps (20-30 minutes) and use of caffeine if needed to help stay awake when driving. - Try to get at least 7-9 hours of sleep in a 24 hour period. Healthy diet and exercise can also promote better sleep. - Follow up with Dr. Weinstein for appt scheduled in February. Patient states she feels med is still working, just not as well. States overall feels more tired during the day than before. Is using the 10mg in the afternoon, 3-4PM before gets son. Otherwise takes ER dosing (20mg) twice daily (AM and shortly after noon). States feels like the ER dose has worn off. No side effects. RLS well controlled and need Requip no more than twice per week. Sleep Questionnaire Data Depression Screening 09/03/2022 12/02/2022 03/03/2023 PHQ-2 Score 0 0 0 PHQ-9 Score 2 1 2 PED PHQ-9 09/03/2022 12/02/2022 03/03/2023 Little interest or pleasure in doing things Not at all Not at all Not at all Feeling down, depressed, or hopeless Not at all Not at all Not at all Trouble falling or staying asleep, or sleeping too much Several days Not at all Several days Feeling tired or having little energy Several days Several days Several days Poor appetite or overeating Not at all Not at all Not at all Feeling bad about yourself - or that you are a failure or have let yourself or your family down Not at all Not at all Not at all Trouble concentrating on things, such as reading the newspaper or watching television Not at all Not at all Not at all Moving or speaking so slowly that other people could have noticed. Or the opposite - being so fidgety or restless that you have been moving around a lot more than usual Not at all Not at all Not at all Thoughts that you would be better off , or of hurting yourself in some way Not at all Not at all Not at all If you checked off any problems, how difficult have these problems made it for you to do your work, take care of things at home, or get along with other people? Not difficult at all Not difficult at all Not difficult at all PHQ-9 Score 2 (None-Minimal Depression) 1 (None-Minimal Depression) 2 (None-Minimal Depression) [place] Sleepiness Scale 09/03/2022 12/02/2022 03/03/2023 Score 7 (No daytime sleepiness) 6 (No daytime sleepiness) 7 (No daytime sleepiness) REVIEW OF SYSTEMS GENERAL:No weight loss, malaise or fevers. HEENT:Negative for frequent or significant headaches, No changes in hearing or vision, no nose bleeds or other nasal problems RESPIRATORY: Negative for cough, wheezing or shortness of breath. CARDIOVASCULAR: Negative for chest pain, leg swelling or palpitations. LAB/IMAGING: Those performed since patient's last visit have been reviewed. WBC (k/uL) Date Value 10/28/2020 5.18 RBC (m/uL) Date Value 10/28/2020 4.12 Hemoglobin (g/dL) Date Value 10/28/2020 12.6 Hematocrit (%) Date Value 10/28/2020 37.7 MCV (fL) Date Value 10/28/2020 91.5 MCH (pG) Date Value 10/28/2020 30.6 MCHC (g/dL) Date Value 10/28/2020 33.4 RDW-CV (%) Date Value 10/28/2020 11.6 Platelet Count (k/uL) Date Value 10/28/2020 284 MPV (fL) Date Value 10/28/2020 10.2 Glucose (mg/dL) Date Value 07/15/2021 68 (L) BUN (mg/dL) Date Value 07/15/2021 9 Creatinine (mg/dL) Date Value 07/15/2021 0.75 Sodium (mmol/L) Date Value 07/15/2021 136 Potassium (mmol/L) Date Value 07/15/2021 4.5 Chloride (mmol/L) Date Value 07/15/2021 100 CO2 (mmol/L) Date Value 07/15/2021 24 Protein, Total (g/dL) Date Value 07/15/2021 7.8 Albumin (g/dL) Date Value 07/15/2021 4.3 Calcium (mg/dL) Date Value 07/15/2021 9.6 Alkaline Phosphatase (U/L) Date Value 07/15/2021 57 Bilirubin, Total (mg/dL) Date Value 07/15/2021 0.2 AST (U/L) Date Value 07/15/2021 20 ALT (U/L) Date Value 07/15/2021 10 MEDICATIONS: ENSKYCE 0.15-0.03 mg per tablet Take 1 tablet by mouth once daily. methylphenidate ER (METADATE ER) 20 mg ER tablet Take 1 tablet twice daily as instructed. Do not start before February 09, 2023. methylphenidate (RITALIN) 10 mg tablet Take 1 tablet in afternoon as needed for hypersomnia/sleepiness. Do not start before October 06, 2022. rOPINIRole (REQUIP) 0.25 mg tablet Take 1 tablet by mouth at bedtime as needed. albuterol HFA (PROAIR HFA) 90 mcg/actuation inhaler Inhale 2 Puffs as instructed every 6 hours as needed. meloxicam (MOBIC) 15 mg tablet Take 15 mg by mouth once daily. PRN therapeutic multivitamin (THERA VITAMIN) tablet Take 1 tablet by mouth once daily. methylphenidate ER (METADATE ER) 20 mg ER tablet Take 1 tablet twice daily as instructed. Do not start before January 10, 2023. methylphenidate ER (METADATE ER) 20 mg ER tablet Take 1 tablet twice daily as instructed. Do not start before December 11, 2022. methylphenidate (RITALIN) 10 mg tablet Take 1 tablet in afternoon as needed for hypersomnia/sleepiness. Do not start before February 11, 2023. methylphenidate (RITALIN) 10 mg tablet Take 1 tablet in afternoon as needed for hypersomnia/sleepiness. Do not start before January 12, 2023. methylphenidate (RITALIN) 10 mg tablet Take 1 tablet in afternoon as needed for hypersomnia/sleepiness. Do not start before December 13, 2022. spironolactone (ALDACTONE) 100 mg tablet Take 100 mg by mouth once daily. (Patient not taking: Reported on 03/03/2023) HISTORIES PAST MEDICAL HISTORY Diagnosis Date Idiopathic hypersomnia with long sleep time 03/26/2015 NEGATIVE MEDICAL HISTORY FAMILY HISTORY Problem Relation Age of Onset None Mother None Father None Sister TWIN None Brother SOCIAL HISTORY Social History Tobacco Use Smoking status: Former Types: Cigarettes Smokeless tobacco: Never Substance Use Topics Alcohol use: Yes Alcohol/week: 1.0 standard drink Types: 1 Glasses of Wine (5oz) per week Drug use: No PHYSICAL EXAMINATION BP 127/80 (BP Site: Left Arm, BP Position: Sitting, BP Cuff Size: Regular Adult) Pulse 94 Ht 170.2 cm (5' 7 ) Wt 73.8 kg (162 lb 12.8 oz) LMP 02/21/2023 (Exact Date) SpO2 99% BMI 25.50 kg/m GENERAL EXAM: General appearance: NAD, pleasant. HEENT: NC/AT, nasal congestion absent, no oral lesions, membranes moist. Lungs: CTA bilaterally. No wheezes present. CV: RRR nl S1, S2 NEUROLOGICAL EXAM: General: Awake, alert, oriented x3 (person,place,time), speech fluent, no dysarthria; comprehension, naming, repetition intact. CN: PERRL, EOMI and without nystagmus, VFF to confrontation, facial sensation and strength are normal and symmetric, hearing is intact to finger rub bilaterally, palate and tongue movements are intact and symmetric. SCM and trapezius strength normal. Motor: Normal tone, bulk and strength (5/5) bilaterally (throughout extremities x4). Gait: Stable with normal stride and arm swing. Assessment and Plan: ASSESSMENT/PLAN: 1. Idiopathic hypersomnia with long sleep time - ICD9: 327.11, ICD10: G47.11 (primary diagnosis) 2. On stimulant medication - ICD9: V58.69, ICD10: Z79.899 Patient with no side effects or significant new complaints, but more tired now than in the past on current meds as above. Discussed with pt options. Possible patient would do better on short acting Methylphenidate through the day rather than ER. To see if some impact from short acting, will change dosing so that patient continues Metadate ER 20mg in AM and noon but will add 5mg of Methylphenidate with these doses while continuing 10mg prn dose in the afternoon. If some improvement in symptoms, will then consider changing to Methylphenidate 20mg TID. Note that tox screen and ECG ordered, but pt will complete during the next month. Patient reports insurance did not cover last tox, but appears had full pain panel. Today ordering basic UDS as well as Ritalin confirmation. Advised pt not to drive or operate heavy machinery if sleepy. Follow up 3 months or sooner prn. Kayley Weinstein MD Medical Decision Making: Problems: Moderate: 1+ chronic illnesses with change Data: Unique test(s) ordered: 2 Risk: Moderate: Drug management Medical Decision Making Level: 4 - Moderate documented in this encounter [facility] 12-02-2022 Note HNO ID: [id number] Author: Yo Light APRN.ELECTRONICS ASSEMBLER AND TESTER Service: ? Author Type: Nurse Practitioner Type: Progress Notes Filed: 12/06/2022 7:53 AM Note Text: [facility] Follow up/ Established patient visit Date of last visit : 09/03/2022 IMPRESSION: Idiopathic hypersomnia with long sleep time Rls (restless legs syndrome) (primary encounter diagnosis) Marycarmen Solomon is a 32 year old female with a PMH of iron deficiency who presents via zoom for hypersomnia and RLS follow up. PSG completed 01/21/2015 was negative for CALEB with a AHI of 0. MSLT completed 01/22/2015 was normal with MSL of 9 mins, 39 seconds and was consistent with sleep deprivation. -Ms. Solomon is doing well. She continues to maintain a regular sleep schedule, averaging at least 8 hours per night. She denies nocturnal awakenings. She takes her metadate ER 20 mg, twice daily as directed. She denies side effects. Uses her 10 mg IR as needed in the afternoons. Reports she only takes it if she needs to do something otherwise will skip this dose. She denies side effects from medication. -Her RLS symptoms are very rarey, maybe once per month. She takes medication for it even less than that. Iron levels were low at last check, but she remains stable. PLAN: -Continue metadate ER 20 mg twice dialy. Scripts sent -Continue methylphenidate 10 mg daily. Scripts ent -Continue 7-9 hours of sleep nightly -follow up in 3 months, due for in person, can be with us or Dr. Weinstein. If he's booked farther out can follow up in 3 months with RADIATION ONCOLOGY NURSE and 6 months in person with (Pt lives in [place]) Jesu Mcginnis APRN.ELECTRONICS ASSEMBLER AND TESTER Interval history : I have communicated my name and active licensure. The patient's identity and physical location were verified at the time of this visit. Either the patient or their legal circulation sales representative has been informed of the risks and benefits of -- and alternatives to -- treatment through a remote evaluation and consents to proceed with the evaluation remotely. Here for follow up for medication refills Reports that she has been stable since last visit. No change in hypersomnia or RLS. HYPERSOMNIA : Idiopathic Hypersomnia Current medications: Takes Metadate er 20 mg, twice daily - 7 am and noon and Ritalin 10 mg in the afternoon as needed PDMP website checked and validated. All prescriptions have been APPROPRIATELY filled. No suspicious activity was identified. 12/02/2022 by Yo Light APRN.ELECTRONICS ASSEMBLER AND TESTER SLEEP HYGIENE QUESTIONS: Estimated total sleep time ( in a 24 hour period of time) : 7 PATIENT-ENTERED QUESTIONNAIRE SLEEP SCORES Sleep Questions 09/03/2022 Reason for visit: Excessive daytime sleepiness Average hours slept in 24 hours: 8 Accidents or near accidents due to drowsy drivin [place] Sleepiness Scale 02/13/2022 05/13/2022 09/03/2022 Score 14 (present daytime sleepiness) 6 (No daytime sleepiness) 7 (No daytime sleepiness) PROMIS CAT Sleep Disturbance 02/13/2022 05/13/2022 09/03/2022 PROMIS Sleep Disturbance T-Score 52 (within normal limits) 46 (within normal limits) 44 (within normal limits) Restless Leg Syndrome 06/22/2021 10/28/2021 05/13/2022 Score 10 8 8 PHQ-9 02/13/2022 05/13/2022 09/03/2022 Score 3 0 2 PROMIS Global Health - (T-Scores - the mean of general population = 50. Five points is a clinically meaningful difference.) 02/13/2022 05/13/2022 07/08/2022 Physical T-Score 50.8 57.7 57.7 Mental T-Score 50.8 56 50.8 PMH, PSH, SH: reviewed SLEEP RELATED ROS Review of Systems Respiratory: Negative. Cardiovascular: Negative. Neurological: Negative. ALLERGIES Allergen Reactions Sulfa (Sulfonamide * Hives, Rash CURRENT MEDICATIONS: methylphenidate ER (METADATE ER) 20 mg ER tablet Take 1 tablet twice daily as instructed. Do not start before November 02, 2022. methylphenidate ER (METADATE ER) 20 mg ER tablet Take 1 tablet twice daily as instructed. Do not start before October 03, 2022. methylphenidate ER (METADATE ER) 20 mg ER tablet Take 1 tablet twice daily as instructed. methylphenidate (RITALIN) 10 mg tablet Take 1 tablet in afternoon as needed for hypersomnia/sleepiness. Do not start before November 05, 2022. methylphenidate (RITALIN) 10 mg tablet Take 1 tablet in afternoon as needed for hypersomnia/sleepiness. Do not start before October 06, 2022. methylphenidate (RITALIN) 10 mg tablet Take 1 tablet in afternoon as needed for hypersomnia/sleepiness. Do not start before September 06, 2022. rOPINIRole (REQUIP) 0.25 mg tablet Take 1 tablet by mouth at bedtime as needed. albuterol HFA (PROAIR HFA) 90 mcg/actuation inhaler Inhale 2 Puffs as instructed every 6 hours as needed. spironolactone (ALDACTONE) 100 mg tablet Take 100 mg by mouth once daily. meloxicam (MOBIC) 15 mg tablet Take 15 mg by mouth once daily. therapeutic multivitamin (THERA VITAMIN) tablet Take 1 tablet by mouth once daily. Prior Hypersomnia/Narcolepsy Medications (more content not included)... [facility] 12-02-2022 History of Presen t illness Narrative Images from the original note were not included. [facility] Follow up/ Established patient visit Date of last visit : 09/03/2022 IMPRESSION: Idiopathic hypersomnia with long sleep time Rls (restless legs syndrome) (primary encounter diagnosis) Marycarmen Solomon is a 32 year old female with a PMH of iron deficiency who presents via zoom for hypersomnia and RLS follow up. PSG completed 01/21/2015 was negative for CALEB with a AHI of 0. MSLT completed 01/22/2015 was normal with MSL of 9 mins, 39 seconds and was consistent with sleep deprivation. -Ms. Solomon is doing well. She continues to maintain a regular sleep schedule, averaging at least 8 hours per night. She denies nocturnal awakenings. She takes her metadate ER 20 mg, twice daily as directed. She denies side effects. Uses her 10 mg IR as needed in the afternoons. Reports she only takes it if she needs to do something otherwise will skip this dose. She denies side effects from medication. -Her RLS symptoms are very rarey, maybe once per month. She takes medication for it even less than that. Iron levels were low at last check, but she remains stable. PLAN: -Continue metadate ER 20 mg twice dialy. Scripts sent -Continue methylphenidate 10 mg daily. Scripts ent -Continue 7-9 hours of sleep nightly -follow up in 3 months, due for in person, can be with us or Dr. Weinstein. If he's booked farther out can follow up in 3 months with RADIATION ONCOLOGY NURSE and 6 months in person with (Pt lives in [place]) Jesu Mcginnis APRN.YUE Interval history : I have communicated my name and active licensure. The patient's identity and physical location were verified at the time of this visit. Either the patient or their legal circulation sales representative has been informed of the risks and benefits of -- and alternatives to -- treatment through a remote evaluation and consents to proceed with the evaluation remotely. Here for follow up for medication refills Reports that she has been stable since last visit. No change in hypersomnia or RLS. HYPERSOMNIA : Idiopathic Hypersomnia Current medications: Takes Metadate er 20 mg, twice daily - 7 am and noon and Ritalin 10 mg in the afternoon as needed PDMP website checked and validated. All prescriptions have been APPROPRIATELY filled. No suspicious activity was identified. 12/02/2022 by Yo Light APRN.ELECTRONICS ASSEMBLER AND TESTER SLEEP HYGIENE QUESTIONS: Estimated total sleep time ( in a 24 hour period of time) : 7 PATIENT-ENTERED QUESTIONNAIRE SLEEP SCORES Sleep Questions 09/03/2022 Reason for visit: Excessive daytime sleepiness Average hours slept in 24 hours: 8 Accidents or near accidents due to drowsy drivin [place] Sleepiness Scale 02/13/2022 05/13/2022 09/03/2022 Score 14 (present daytime sleepiness) 6 (No daytime sleepiness) 7 (No daytime sleepiness) PROMIS CAT Sleep Disturbance 02/13/2022 05/13/2022 09/03/2022 PROMIS Sleep Disturbance T-Score 52 (within normal limits) 46 (within normal limits) 44 (within normal limits) Restless Leg Syndrome 06/22/2021 10/28/2021 05/13/2022 Score 10 8 8 PHQ-9 02/13/2022 05/13/2022 09/03/2022 Score 3 0 2 PROMIS Global Health - (T-Scores - the mean of general population = 50. Five points is a clinically meaningful difference.) 02/13/2022 05/13/2022 07/08/2022 Physical T-Score 50.8 57.7 57.7 Mental T-Score 50.8 56 50.8 PMH, PSH, SH: reviewed SLEEP RELATED ROS Review of Systems Respiratory: Negative. Cardiovascular: Negative. Neurological: Negative. ALLERGIES Allergen Reactions Sulfa (Sulfonamide * Hives, Rash CURRENT MEDICATIONS: methylphenidate ER (METADATE ER) 20 mg ER tablet Take 1 tablet twice daily as instructed. Do not start before November 02, 2022. methylphenidate ER (METADATE ER) 20 mg ER tablet Take 1 tablet twice daily as instructed. Do not start before October 03, 2022. methylphenidate ER (METADATE ER) 20 mg ER tablet Take 1 tablet twice daily as instructed. methylphenidate (RITALIN) 10 mg tablet Take 1 tablet in afternoon as needed for hypersomnia/sleepiness. Do not start before November 05, 2022. methylphenidate (RITALIN) 10 mg tablet Take 1 tablet in afternoon as needed for hypersomnia/sleepiness. Do not start before October 06, 2022. methylphenidate (RITALIN) 10 mg tablet Take 1 tablet in afternoon as needed for hypersomnia/sleepiness. Do not start before September 06, 2022. rOPINIRole (REQUIP) 0.25 mg tablet Take 1 tablet by mouth at bedtime as needed. albuterol HFA (PROAIR HFA) 90 mcg/actuation inhaler Inhale 2 Puffs as instructed every 6 hours as needed. spironolactone (ALDACTONE) 100 mg tablet Take 100 mg by mouth once daily. meloxicam (MOBIC) 15 mg tablet Take 15 mg by mouth once daily. therapeutic multivitamin (THERA VITAMIN) tablet Take 1 tablet by mouth once daily. Prior Hypersomnia/Narcolepsy Medications (20 years) Some values may be hidden. Unless noted otherwise, only the newest values recorded on each date are displayed. Hypersomnia/Narcolepsy Medications methylphenidate (RITALIN) 10 mg tablet Dose: Take 0.5 to 1 tablet by mouth twice daily before breakfast and lunch. Starting date: 04/29/2015 Ending date: 06/24/2015 (Discontinued) methylphenidate (RITALIN) 10 mg tablet Dose: Take 0.5 to 1 tablet by mouth 2-3 times a day for hypersomnia. Starting date: 06/24/2015 Ending date: 09/23/2015 (Discontinued) methylphenidate (RITALIN) 10 mg tablet Dose: Take 0.5 to 1 tablet by mouth 2-3 times a day for hypersomnia. Starting date: 07/25/2015 Ending date: 09/23/2015 (Discontinued) methylphenidate (RITALIN) 10 mg tablet Dose: Take 0.5 to 1 tablet by mouth 2-3 times a day for hypersomnia. Starting date: 08/24/2015 Ending date: 09/23/2015 (Discontinued) methylphenidate (RITALIN) 10 mg tablet Dose: Take 1 tablet by mouth 3 times a day for hypersomnia. Starting date: 09/23/2015 Ending date: 02/17/2016 (Discontinued) methylphenidate (RITALIN) 10 mg tablet Dose: Take 1 tablet by mouth 3 times a day for hypersomnia. Starting date: 10/24/2015 Ending date: 02/17/2016 (Discontinued) methylphenidate (RITALIN) 10 mg tablet Dose: Take 1 tablet by mouth 3 times a day for hypersomnia. Starting date: 11/22/2015 Ending date: 02/17/2016 (Discontinued) methylphenidate (RITALIN) 10 mg tablet Dose: Take 1 tablet by mouth 4 times a day for hypersomnia. Starting date: 02/17/2016 Ending date: 04/20/2016 (Discontinued) methylphenidate (RITALIN) 10 mg tablet Dose: Take 1 tablet by mouth 4 times a day for hypersomnia. Starting date: 03/18/2016 Ending date: 04/20/2016 (Discontinued) methylphenidate (RITALIN) 10 mg tablet Dose: Take 1 tablet by mouth 4 times a day for hypersomnia. Starting date: 04/18/2016 Ending date: 04/20/2016 (Discontinued) methylphenidate (RITALIN) 10 mg tablet Dose: Take 1 tablet by mouth 4 times a day for hypersomnia. Starting date: 04/20/2016 Ending date: 08/24/2016 (Discontinued) methylphenidate (RITALIN) 10 mg tablet Dose: Take 1 tablet by mouth 4 times a day for hypersomnia. Starting date: 05/21/2016 Ending date: 08/24/2016 (Discontinued) methylphenidate (RITALIN) 10 mg tablet Dose: Take 1 tablet by mouth 4 times a day for hypersomnia. Starting date: 06/20/2016 Ending date: 08/24/2016 (Discontinued) methylphenidate (RITALIN) 10 mg tablet Dose: Take 1 tablet by mouth 4 times a day for hypersomnia. Starting date: 08/24/2016 Ending date: 01/21/2017 (Discontinued) methylphenidate (RITALIN) 10 mg tablet Dose: Take 1 tablet by mouth 4 times a day for hypersomnia. Starting date: 09/24/2016 Ending date: 01/21/2017 (Discontinued) methylphenidate (RITALIN) 10 mg tablet Dose: Take 1 tablet by mouth 4 times a day for hypersomnia. Starting date: 10/25/2016 Ending date: 01/21/2017 (Discontinued) methylphenidate (RITALIN) 10 mg tablet Dose: Take 1 tablet by mouth 4 times a day for hypersomnia. Starting date: 01/21/2017 Ending date: 02/08/2017 (Discontinued) methylphenidate (RITALIN) 10 mg tablet Dose: Take 1 tablet by mouth 4 times a day for hypersomnia. Starting date: 02/21/2017 Ending date: 02/08/2017 (Discontinued) methylphenidate (RITALIN) 10 mg tablet Dose: Take 1 tablet by mouth 4 times a day for hypersomnia. Starting date: 03/23/2017 Ending date: 06/22/2017 (Discontinued) methylphenidate (RITALIN) 10 mg tablet Dose: Take 1 tablet by mouth 4 times a day for hypersomnia. Starting date: 06/22/2017 Ending date: 09/21/2017 (Discontinued) methylphenidate (RITALIN) 10 mg tablet Dose: Take 1 tablet by mouth 4 times a day for hypersomnia. Starting date: 07/22/2017 Ending date: 09/21/2017 (Discontinued) methylphenidate (RITALIN) 10 mg tablet Dose: Take 1 tablet by mouth 4 times a day for hypersomnia. Starting date: 08/21/2017 Ending date: 07/06/2018 (Discontinued) methylphenidate (RITALIN) 10 mg tablet Dose: 10 mg 3 TIMES DAILY NEEDED Starting date: 09/21/2017 Ending date: 12/21/2017 (Discontinued) methylphenidate (RITALIN) 10 mg tablet Dose: 10 mg 3 TIMES DAILY NEEDED Starting date: 10/22/2017 Ending date: 07/06/2018 (Discontinued) methylphenidate (RITALIN) 10 mg tablet Dose: 10 mg 3 TIMES DAILY NEEDED Starting date: 11/22/2017 Ending date: 07/06/2018 (Discontinued) methylphenidate (RITALIN) 10 mg tablet Dose: 10 mg 3 TIMES DAILY NEEDED Starting date: 01/18/2018 Ending date: 03/23/2018 (Discontinued) methylphenidate (RITALIN) 10 mg tablet Dose: 10 mg 3 TIMES DAILY NEEDED Starting date: 02/18/2018 Ending date: 07/06/2018 (Discontinued) methylphenidate (RITALIN) 10 mg tablet Dose: 10 mg 3 TIMES DAILY NEEDED Starting date: 03/20/2018 Ending date: 07/06/2018 (Discontinued) methylphenidate (RITALIN) 10 mg tablet Dose: 10 mg 3 TIMES DAILY NEEDED Starting date: 04/24/2018 Ending date: 07/06/2018 (Discontinued) methylphenidate (RITALIN) 10 mg tablet Dose: 10 mg 3 TIMES DAILY NEEDED Starting date: 05/25/2018 Ending date: 07/06/2018 (Discontinued) methylphenidate (RITALIN) 10 mg tablet Dose: 10 mg 3 TIMES DAILY NEEDED Starting date: 06/24/2018 Ending date: 04/19/2019 (Discontinued) methylphenidate (RITALIN) 10 mg tablet Dose: 10 mg 2 TIMES DAILY Starting date: 04/19/2019 Ending date: 07/12/2019 (Discontinued) methylphenidate (RITALIN) 10 mg tablet Dose: 10 mg 2 TIMES DAILY Starting date: 05/19/2019 Ending date: 07/12/2019 (Discontinued) methylphenidate (RITALIN) 10 mg tablet Dose: 10 mg 2 TIMES DAILY Starting date: 06/18/2019 Ending date: 07/12/2019 (Discontinued) methylphenidate (RITALIN) 10 mg tablet Dose: 10 mg 2 TIMES DAILY Starting date: 08/11/2019 Ending date: 11/29/2019 (Discontinued) methylphenidate (RITALIN) 10 mg tablet Dose: 10 mg 2 TIMES DAILY Starting date: 09/10/2019 Ending date: 11/29/2019 (Discontinued) methylphenidate (RITALIN) 10 mg tablet Dose: 10 mg 2 TIMES DAILY Starting date: 10/10/2019 Ending date: 11/29/2019 (Discontinued) methylphenidate (RITALIN) 10 mg tablet Dose: 10 mg 2 TIMES DAILY Starting date: 11/29/2019 Ending date: 05/22/2020 (Discontinued) methylphenidate (RITALIN) 10 mg tablet Dose: 10 mg 2 TIMES DAILY Starting date: 12/28/2019 Ending date: 05/22/2020 (Discontinued) methylphenidate (RITALIN) 10 mg tablet Dose: 10 mg 2 TIMES DAILY Starting date: 01/26/2020 Ending date: 02/20/2020 (Discontinued) methylphenidate (RITALIN) 10 mg tablet Dose: 10 mg 2 TIMES DAILY Starting date: 02/20/2020 Ending date: 05/22/2020 (Discontinued) methylphenidate (RITALIN) 10 mg tablet Dose: 10 mg 2 TIMES DAILY Starting date: 03/22/2020 Ending date: 05/22/2020 (Discontinued) methylphenidate (RITALIN) 10 mg tablet Dose: 10 mg 2 TIMES DAILY Starting date: 04/22/2020 Ending date: 05/22/2020 (Discontinued) methylphenidate (RITALIN) 10 mg tablet Dose: 10 mg 2 TIMES DAILY Starting date: 06/07/2020 Ending date: 09/26/2020 (Discontinued) methylphenidate (RITALIN) 10 mg tablet Dose: 10 mg 2 TIMES DAILY Starting date: 07/06/2020 Ending date: 09/26/2020 (Discontinued) methylphenidate (RITALIN) 10 mg tablet Dose: 10 mg 2 TIMES DAILY Starting date: 08/05/2020 Ending date: 09/26/2020 (Discontinued) methylphenidate (RITALIN) 10 mg tablet Dose: Take 1 tablet in afternoon as needed for hypersomnia/sleepiness. Starting date: 09/26/2020 Ending date: 10/31/2020 (Discontinued) methylphenidate (RITALIN) 10 mg tablet Dose: Take 1 tablet in afternoon as needed for hypersomnia/sleepiness. Starting date: 10/31/2020 Ending date: 12/16/2020 (Discontinued) methylphenidate (RITALIN) 10 mg tablet Dose: Take 1 tablet in afternoon as needed for hypersomnia/sleepiness. Do not start before November 30, 2020. Starting date: 11/30/2020 Ending date: 12/16/2020 (Discontinued) methylphenidate (RITALIN) 10 mg tablet Dose: Take 1 tablet in afternoon as needed for hypersomnia/sleepiness. Do not start before January 05, 2021. Starting date: 01/05/2021 Ending date: 03/05/2021 (Discontinued) methylphenidate (RITALIN) 10 mg tablet Dose: Take 1 tablet in afternoon as needed for hypersomnia/sleepiness. Do not start before February 03, 2021. Starting date: 02/03/2021 Ending date: 03/05/2021 (Discontinued) methylphenidate (RITALIN) 10 mg tablet Dose: Take 1 tablet in afternoon as needed for hypersomnia/sleepiness. Do not start before March 05, 2021. Starting date: 03/05/2021 Ending date: 03/05/2021 (Discontinued) methylphenidate (RITALIN) 10 mg tablet Dose: Take 1 tablet in afternoon as needed for hypersomnia/sleepiness. Do not start before March 20, 2021. Starting date: 03/20/2021 Ending date: 06/22/2021 (Discontinued) methylphenidate (RITALIN) 10 mg tablet Dose: Take 1 tablet in afternoon as needed for hypersomnia/sleepiness. Do not start before April 19, 2021. Starting date: 04/19/2021 Ending date: 06/22/2021 (Discontinued) methylphenidate (RITALIN) 10 mg tablet Dose: Take 1 tablet in afternoon as needed for hypersomnia/sleepiness. Do not start before May 19, 2021. Starting date: 05/19/2021 Ending date: 06/22/2021 (Discontinued) methylphenidate (RITALIN) 10 mg tablet Dose: Take 1 tablet in afternoon as needed for hypersomnia/sleepiness. Do not start before August 21, 2021. Starting date: 08/21/2021 Ending date: 08/26/2021 (Discontinued) methylphenidate (RITALIN) 10 mg tablet Dose: Take 1 tablet in afternoon as needed for hypersomnia/sleepiness. Do not start before July 22, 2021. Starting date: 07/22/2021 Ending date: 08/26/2021 (Discontinued) methylphenidate (RITALIN) 10 mg tablet Dose: Take 1 tablet in afternoon as needed for hypersomnia/sleepiness. Starting date: 06/22/2021 Ending date: 08/26/2021 (Discontinued) methylphenidate (RITALIN) 10 mg tablet Dose: Take 1 tablet in afternoon as needed for hypersomnia/sleepiness. Do not start before September 15, 2021. Starting date: 09/15/2021 Ending date: 10/29/2021 (Discontinued) methylphenidate (RITALIN) 10 mg tablet Dose: Take 1 tablet in afternoon as needed for hypersomnia/sleepiness. Do not start before October 16, 2021. Starting date: 10/16/2021 Ending date: 10/29/2021 (Discontinued) methylphenidate (RITALIN) 10 mg tablet Dose: Take 1 tablet in afternoon as needed for hypersomnia/sleepiness. Do not start before November 16, 2021. Starting date: 11/16/2021 Ending date: 10/29/2021 (Discontinued) methylphenidate (RITALIN) 10 mg tablet Dose: Take 1 tablet in afternoon as needed for hypersomnia/sleepiness. Do not start before December 25, 2021. Starting date: 12/25/2021 Ending date: 02/17/2022 (Discontinued) methylphenidate (RITALIN) 10 mg tablet Dose: Take 1 tablet in afternoon as needed for hypersomnia/sleepiness. Do not start before November 26, 2021. Starting date: 11/26/2021 Ending date: 02/17/2022 (Discontinued) methylphenidate (RITALIN) 10 mg tablet Dose: Take 1 tablet in afternoon as needed for hypersomnia/sleepiness. Starting date: 10/29/2021 Ending date: 02/17/2022 (Discontinued) methylphenidate (RITALIN) 10 mg tablet Dose: Take 1 tablet in afternoon as needed for hypersomnia/sleepiness. Do not start before April 04, 2022. Starting date: 04/04/2022 Ending date: 05/13/2022 (Discontinued) methylphenidate (RITALIN) 10 mg tablet Dose: Take 1 tablet in afternoon as needed for hypersomnia/sleepiness. Do not start before May 04, 2022. Starting date: 05/04/2022 Ending date: 05/13/2022 (Discontinued) methylphenidate (RITALIN) 10 mg tablet Dose: Take 1 tablet in afternoon as needed for hypersomnia/sleepiness. Do not start before March 06, 2022. Starting date: 03/06/2022 Ending date: 05/13/2022 (Discontinued) methylphenidate (RITALIN) 10 mg tablet Dose: Take 1 tablet in afternoon as needed for hypersomnia/sleepiness. Do not start before May 25, 2022. Starting date: 05/25/2022 Ending date: 06/01/2022 (Discontinued) methylphenidate (RITALIN) 10 mg tablet Dose: Take 1 tablet in afternoon as needed for hypersomnia/sleepiness. Do not start before June 23, 2022. Starting date: 06/23/2022 Ending date: 06/01/2022 (Discontinued) methylphenidate (RITALIN) 10 mg tablet Dose: Take 1 tablet in afternoon as needed for hypersomnia/sleepiness. Do not start before July 23, 2022. Starting date: 07/23/2022 Ending date: 06/01/2022 (Discontinued) methylphenidate (RITALIN) 10 mg tablet Dose: Take 1 tablet in afternoon as needed for hypersomnia/sleepiness. Do not start before June 27, 2022. Starting date: 06/27/2022 Ending date: 06/01/2022 (Discontinued) methylphenidate (RITALIN) 10 mg tablet Dose: Take 1 tablet in afternoon as needed for hypersomnia/sleepiness. Do not start before July 27, 2022. Starting date: 07/27/2022 Ending date: 06/01/2022 (Discontinued) methylphenidate (RITALIN) 10 mg tablet Dose: Take 1 tablet in afternoon as needed for hypersomnia/sleepiness. Do not start before June 27, 2022. Starting date: 06/27/2022 Ending date: 09/03/2022 (Discontinued) methylphenidate (RITALIN) 10 mg tablet Dose: Take 1 tablet in afternoon as needed for hypersomnia/sleepiness. Do not start before July 27, 2022. Starting date: 07/27/2022 Ending date: 09/03/2022 (Discontinued) methylphenidate (RITALIN) 10 mg tablet Dose: Take 1 tablet in afternoon as needed for hypersomnia/sleepiness. Do not start before November 05, 2022. Starting date: 11/05/2022 Ending date: 12/02/2022 (Discontinued) methylphenidate (RITALIN) 10 mg tablet Dose: Take 1 tablet in afternoon as needed for hypersomnia/sleepiness. Do not start before October 06, 2022. Starting date: 10/06/2022 Ending date: 12/02/2022 methylphenidate (RITALIN) 10 mg tablet Dose: Take 1 tablet in afternoon as needed for hypersomnia/sleepiness. Do not start before September 06, 2022. Starting date: 09/06/2022 Ending date: 12/02/2022 (Discontinued) methylphenidate (RITALIN) 10 mg tablet Dose: Take 1 tablet in afternoon as needed for hypersomnia/sleepiness. Do not start before February 11, 2023. Starting date: 02/11/2023 Ending date: 03/13/2023 methylphenidate (RITALIN) 10 mg tablet Dose: Take 1 tablet in afternoon as needed for hypersomnia/sleepiness. Do not start before January 12, 2023. Starting date: 01/12/2023 Ending date: 02/11/2023 methylphenidate (RITALIN) 10 mg tablet Dose: Take 1 tablet in afternoon as needed for hypersomnia/sleepiness. Do not start before December 13, 2022. Starting date: 12/13/2022 Ending date: 01/16/2023 methylphenidate ER (METADATE ER) 20 mg ER tablet Dose: 20 mg DAILY Starting date: 09/21/2017 Ending date: 12/21/2017 (Discontinued) methylphenidate ER (METADATE ER) 20 mg ER tablet Dose: 20 mg DAILY Starting date: 10/22/2017 Ending date: 07/06/2018 (Discontinued) methylphenidate ER (METADATE ER) 20 mg ER tablet Dose: 20 mg DAILY Starting date: 11/21/2017 Ending date: 07/06/2018 (Discontinued) methylphenidate ER (METADATE ER) 20 mg ER tablet Dose: 20 mg DAILY Starting date: 01/18/2018 Ending date: 03/23/2018 (Discontinued) methylphenidate ER (METADATE ER) 20 mg ER tablet Dose: 20 mg DAILY Starting date: 02/18/2018 Ending date: 07/06/2018 (Discontinued) methylphenidate ER (METADATE ER) 20 mg ER tablet Dose: 20 mg DAILY Starting date: 03/20/2018 Ending date: 07/06/2018 (Discontinued) methylphenidate ER (METADATE ER) 20 mg ER tablet Dose: 20 mg DAILY Starting date: 04/24/2018 Ending date: 07/06/2018 (Discontinued) methylphenidate ER (METADATE ER) 20 mg ER tablet Dose: 20 mg DAILY Starting date: 05/25/2018 Ending date: 07/06/2018 (Discontinued) methylphenidate ER (METADATE ER) 20 mg ER tablet Dose: 20 mg DAILY Starting date: 06/24/2018 Ending date: 07/12/2019 (Discontinued) methylphenidate ER (METADATE ER) 20 mg ER tablet Dose: 20 mg DAILY Starting date: 02/20/2020 Ending date: 05/22/2020 (Discontinued) methylphenidate ER (METADATE ER) 20 mg ER tablet Dose: 20 mg DAILY Starting date: 03/22/2020 Ending date: 05/22/2020 (Discontinued) methylphenidate ER (METADATE ER) 20 mg ER tablet Dose: 20 mg DAILY Starting date: 04/22/2020 Ending date: 05/22/2020 (Discontinued) methylphenidate ER (METADATE ER) 20 mg ER tablet Dose: 20 mg DAILY Starting date: 06/07/2020 Ending date: 09/26/2020 (Discontinued) methylphenidate ER (METADATE ER) 20 mg ER tablet Dose: 20 mg DAILY Starting date: 07/06/2020 Ending date: 09/26/2020 (Discontinued) methylphenidate ER (METADATE ER) 20 mg ER tablet Dose: 20 mg DAILY Starting date: 08/05/2020 Ending date: 09/26/2020 (Discontinued) methylphenidate ER (METADATE ER) 20 mg ER tablet Dose: Take 1 tablet twice daily as instructed. Starting date: 09/26/2020 Ending date: 10/31/2020 (Discontinued) methylphenidate ER (METADATE ER) 20 mg ER tablet Dose: Take 1 tablet twice daily as instructed. Starting date: 10/31/2020 Ending date: 12/16/2020 (Discontinued) methylphenidate ER (METADATE ER) 20 mg ER tablet Dose: 20 mg 2 TIMES DAILY Starting date: 11/30/2020 Ending date: 12/16/2020 (Discontinued) methylphenidate ER (METADATE ER) 20 mg ER tablet Dose: Take 1 tablet twice daily as instructed. Do not start before February 03, 2021. Starting date: 02/03/2021 Ending date: 03/05/2021 (Discontinued) methylphenidate ER (METADATE ER) 20 mg ER tablet Dose: Take 1 tablet twice daily as instructed. Do not start before January 05, 2021. Starting date: 01/05/2021 Ending date: 03/05/2021 (Discontinued) methylphenidate ER (METADATE ER) 20 mg ER tablet Dose: Take 1 tablet twice daily as instructed. Do not start before March 05, 2021. Starting date: 03/05/2021 Ending date: 03/05/2021 (Discontinued) methylphenidate ER (METADATE ER) 20 mg ER tablet Dose: Take 1 tablet twice daily as instructed. Do not start before March 20, 2021. Starting date: 03/20/2021 Ending date: 06/22/2021 (Discontinued) methylphenidate ER (METADATE ER) 20 mg ER tablet Dose: Take 1 tablet twice daily as instructed. Do not start before April 19, 2021. Starting date: 04/19/2021 Ending date: 06/22/2021 (Discontinued) methylphenidate ER (METADATE ER) 20 mg ER tablet Dose: Take 1 tablet twice daily as instructed. Do not start before May 19, 2021. Starting date: 05/19/2021 Ending date: 06/22/2021 (Discontinued) methylphenidate ER (METADATE ER) 20 mg ER tablet Dose: Take 1 tablet twice daily as instructed. Do not start before August 21, 2021. Starting date: 08/21/2021 Ending date: 08/26/2021 (Discontinued) methylphenidate ER (METADATE ER) 20 mg ER tablet Dose: Take 1 tablet twice daily as instructed. Do not start before July 22, 2021. Starting date: 07/22/2021 Ending date: 08/26/2021 (Discontinued) methylphenidate ER (METADATE ER) 20 mg ER tablet Dose: Take 1 tablet twice daily as instructed. Starting date: 06/22/2021 Ending date: 08/26/2021 (Discontinued) methylphenidate ER (METADATE ER) 20 mg ER tablet Dose: Take 1 tablet twice daily as instructed. Do not start before August 27, 2021. Starting date: 08/27/2021 Ending date: 10/29/2021 (Discontinued) methylphenidate ER (METADATE ER) 20 mg ER tablet Dose: Take 1 tablet twice daily as instructed. Do not start before September 26, 2021. Starting date: 09/26/2021 Ending date: 10/29/2021 (Discontinued) methylphenidate ER (METADATE ER) 20 mg ER tablet Dose: Take 1 tablet twice daily as instructed. Do not start before October 27, 2021. Starting date: 10/27/2021 Ending date: 10/29/2021 (Discontinued) methylphenidate ER (METADATE ER) 20 mg ER tablet Dose: Take 1 tablet twice daily as instructed. Do not start before December 25, 2021. Starting date: 12/25/2021 Ending date: 02/17/2022 (Discontinued) methylphenidate ER (METADATE ER) 20 mg ER tablet Dose: Take 1 tablet twice daily as instructed. Do not start before November 26, 2021. Starting date: 11/26/2021 Ending date: 02/17/2022 (Discontinued) methylphenidate ER (METADATE ER) 20 mg ER tablet Dose: Take 1 tablet twice daily as instructed. Starting date: 10/29/2021 Ending date: 02/17/2022 (Discontinued) methylphenidate ER (METADATE ER) 20 mg ER tablet Dose: Take 1 tablet twice daily as instructed. Starting date: 02/17/2022 Ending date: 05/13/2022 (Discontinued) methylphenidate ER (METADATE ER) 20 mg ER tablet Dose: Take 1 tablet twice daily as instructed. Do not start before March 18, 2022. Starting date: 03/18/2022 Ending date: 05/13/2022 (Discontinued) methylphenidate ER (METADATE ER) 20 mg ER tablet Dose: Take 1 tablet twice daily as instructed. Do not start before April 16, 2022. Starting date: 04/16/2022 Ending date: 05/13/2022 (Discontinued) methylphenidate ER (METADATE ER) 20 mg ER tablet Dose: Take 1 tablet twice daily as instructed. Do not start before May 25, 2022. Starting date: 05/25/2022 Ending date: 06/01/2022 (Discontinued) methylphenidate ER (METADATE ER) 20 mg ER tablet Dose: Take 1 tablet twice daily as instructed. Do not start before June 23, 2022. Starting date: 06/23/2022 Ending date: 06/01/2022 (Discontinued) methylphenidate ER (METADATE ER) 20 mg ER tablet Dose: Take 1 tablet twice daily as instructed. Do not start before July 23, 2022. Starting date: 07/23/2022 Ending date: 06/01/2022 (Discontinued) methylphenidate ER (METADATE ER) 20 mg ER tablet Dose: Take 1 tablet twice daily as instructed. Starting date: 06/01/2022 Ending date: 06/01/2022 (Discontinued) methylphenidate ER (METADATE ER) 20 mg ER tablet Dose: Take 1 tablet twice daily as instructed. Do not start before June 30, 2022. Starting date: 06/30/2022 Ending date: 06/01/2022 (Discontinued) methylphenidate ER (METADATE ER) 20 mg ER tablet Dose: Take 1 tablet twice daily as instructed. Starting date: 06/01/2022 Ending date: 09/03/2022 (Discontinued) methylphenidate ER (METADATE ER) 20 mg ER tablet Dose: Take 1 tablet twice daily as instructed. Do not start before June 30, 2022. Starting date: 06/30/2022 Ending date: 09/03/2022 (Discontinued) methylphenidate ER (METADATE ER) 20 mg ER tablet Dose: Take 1 tablet twice daily as instructed. Do not start before November 02, 2022. Starting date: 11/02/2022 Ending date: 12/02/2022 (Discontinued) methylphenidate ER (METADATE ER) 20 mg ER tablet Dose: Take 1 tablet twice daily as instructed. Do not start before October 03, 2022. Starting date: 10/03/2022 Ending date: 12/02/2022 (Discontinued) methylphenidate ER (METADATE ER) 20 mg ER tablet Dose: Take 1 tablet twice daily as instructed. Starting date: 09/03/2022 Ending date: 12/02/2022 (Discontinued) methylphenidate ER (METADATE ER) 20 mg ER tablet Dose: Take 1 tablet twice daily as instructed. Do not start before February 09, 2023. Starting date: 02/09/2023 Ending date: 03/12/2023 methylphenidate ER (METADATE ER) 20 mg ER tablet Dose: Take 1 tablet twice daily as instructed. Do not start before January 10, 2023. Starting date: 01/10/2023 Ending date: 02/11/2023 methylphenidate ER (METADATE ER) 20 mg ER tablet Dose: Take 1 tablet twice daily as instructed. Do not start before December 11, 2022. Starting date: 12/11/2022 Ending date: 01/23/2023 Medication marked as long-term PHYSICAL EXAMINATION: General appearance: NAD, pleasant Mental status: Awake & alert Constitutional: WNL Neuro: Fluent speech IMPRESSION / PLAN: Marycarmen Solomon is a 32 year old female with a PMH of iron deficiency who presents via zoom for hypersomnia and RLS follow up. PSG completed 01/21/2015 was negative for CALEB with a AHI of 0. MSLT completed 01/22/2015 was normal with MSL of 9 mins, 39 seconds and was consistent with sleep deprivation. 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 RLS occurs rarely. - Continue taking metadate ER 20 mg and methylphenidate 10 mg as directed. - Avoid driving when drowsy. - roll over loader for short naps (20-30 minutes) and use of caffeine if needed to help stay awake when driving. - Try to get at least 7-9 hours of sleep in a 24 hour period. Healthy diet and exercise can also promote better sleep. - Follow up with Dr. Weinstein for appt scheduled in February. Yo Light APRN.ELECTRONICS ASSEMBLER AND TESTER documented in this encounter [facility] 09-03-2022 Note HNO ID: [id number] Author: Jesu Mcginnis APRN.YUE Service: ? Author Type: Nurse Practitioner Type: Progress Notes Filed: 09/03/2022 11:19 AM Note Text: [facility] Follow up/ Established patient visit Visit performed virtually, with the patient's permission. Date of last visit : 05/13/2022 Per last visit: IMPRESSION: Idiopathic hypersomnia with long sleep time (primary encounter diagnosis) On stimulant medication Rls (restless legs syndrome) Vitamin d deficiency Iron deficiency Here for follow up for RLS with PRN use of Requip and IH with Metadate 20 mg ER and 10 mg IR without SE or ADRs. PLAN: Hypersomnia: - Continue taking: Ritalin 10 mg PRN in the afternoon Metadate 20 mg ER in the morning and afternoon Refills sent pre dated per OARs - Avoid driving when drowsy. - roll over loader for short naps (20-30 minutes) and use of caffeine if needed to help stay awake when driving. - Try to get at least 7-9 hours of sleep in a 24 hour period. Healthy diet and exercise can also promote better sleep. - Annual tox screen RLS: - Nonmedical therapy for restless legs syndrome includes : cold/warm compresses, warm/hot baths or showers, gentle massage, mild leg stretching at nighttime, or magnesium supplements ( 250- 1000 mg at nighttime daily). Mentally alerting activities help too. Note the caffeine, alcohol, nicotine, antidepressants, anti-nausea meds and antihistamines can cause or worsen symptoms. - Continue Requip 0.25 mg PRN for treatment of RLS. - Additional lab work ordered Follow up in 3 month(s) Lakisha Rojo, LYNNE.ELECTRONICS ASSEMBLER AND TESTER I spent a total of 34 minutes on the date of the service which included preparing to see the patient, [id number] patient care, completing clinical documentation, obtaining and/or reviewing separately obtained history, counseling and educating the patient/family/caregiver, and ordering medications, tests, or procedures Interval history : Here for follow up for hypersomnia and RLS HYPERSOMNIA : Idiopathic Hypersomnia Naps: No Cataplexy: No Hypnagogic hallucinations: No Dream enactment behaviors: No Sleep related injuries: No Drowsy driving: No Current medications: OARRS checked: Yes Ritalin 10 mg in the afternoon as needed- will take if she has things to do Metadate er 20 mg, twice daily, taken at, 7 am and noon, -used to have a lot of dreams prior to methylphenidate, now does better EKG completed 10/28/2020 Urine tox 05/14/2022 RLS Current treatment requip 0.25mg, rarely has symptoms, takes maybe once monthly, but maybe less Ferritin Date Value Ref Range Status 05/14/2022 23.6 14.7 - 205.1 ng/mL Final 10/28/2020 27.8 14.7 - 205.1 ng/mL Final 11/13/2015 27.4 9.0 - 150.0 ng/mL Final 01/01/2015 21.4 9.0 - 150.0 ng/mL Final Transferrin Saturation Date Value Ref Range Status 05/14/2022 24.1 15.0 - 57.0 % Final 10/28/2020 38 15 - 57 % Final 11/13/2015 20 11 - 46 % Final 01/01/2015 14 11 - 46 % Final Hemoglobin Date Value Ref Range Status 10/28/2020 12.6 11.5 - 15.5 g/dL Final 06/24/2014 12.0 11.5 - 15.5 g/dL Final SLEEP HYGIENE QUESTIONS: Bedtime : 8-10pm Wake up Time : 6-7am Number of times patient wakes up per night : 0-1 Reason (s) why patient wakes up during the night : if her son wakes her Estimated total sleep time ( in a 24 hour period of time) : 8-10 Naps : No PATIENT-ENTERED QUESTIONNAIRE SLEEP SCORES Sleep Questions 09/03/2022 Reason for visit: Excessive daytime sleepiness Average hours slept in 24 hours: 8 Accidents or near accidents due to drowsy drivin [place] Sleepiness Scale 10/28/2021 02/13/2022 05/13/2022 Score 7 (No daytime sleepiness) 14 (present daytime sleepiness) 6 (No daytime sleepiness) PROMIS CAT Sleep Disturbance 10/28/2021 02/13/2022 05/13/2022 PROMIS Sleep Disturbance T-Score 44 (within normal limits) 52 (within normal limits) 46 (within normal limits) Restless Leg Syndrome 06/22/2021 10/28/2021 05/13/2022 Score 10 8 8 PHQ-9 10/28/2021 02/13/2022 05/13/2022 Score 3 3 0 PROMIS Global Health - (T-Scores - the mean of general population = 50. Five points is a clinically meaningful difference.) 02/13/2022 05/13/2022 07/08/2022 Physical T-Score 50.8 57.7 57.7 Mental T-Score 50.8 56 50.8 PMH, PSH, SH: reviewed SLEEP RELATED ROS Review of Systems HENT: Positive for dry mouth Cardiovascular: Negative for palpitations. Genitourinary: Negative for nocturia. Skin: Negative for rash. Neurological: Negative for headaches. ALLERGIES Allergen Reactions Sulfa (Sulfonamide * Hives, Rash CURRENT MEDICATIONS: methylphenidate (RITALIN) 10 mg tablet Take 1 tablet in afternoon as needed for hypersomnia/sleepiness. Do not start before June 27, 2022. methylphenidate (RITALIN) 10 mg tablet Take 1 tablet in afternoon as needed for hypersomnia/sleepiness. Do not start before July 27, 2022. methylphenidate ER (METADATE ER) 2 (more content not included)... [facility] 09-03-2022 History of Presen t illness Narrative Images from the original note were not included. [facility] Follow up/ Established patient visit Visit performed virtually, with the patient's permission. Date of last visit : 05/13/2022 Per last visit: IMPRESSION: Idiopathic hypersomnia with long sleep time (primary encounter diagnosis) On stimulant medication Rls (restless legs syndrome) Vitamin d deficiency Iron deficiency Here for follow up for RLS with PRN use of Requip and IH with Metadate 20 mg ER and 10 mg IR without SE or ADRs. PLAN: Hypersomnia: - Continue taking: Ritalin 10 mg PRN in the afternoon Metadate 20 mg ER in the morning and afternoon Refills sent pre dated per OARs - Avoid driving when drowsy. - roll over loader for short naps (20-30 minutes) and use of caffeine if needed to help stay awake when driving. - Try to get at least 7-9 hours of sleep in a 24 hour period. Healthy diet and exercise can also promote better sleep. - Annual tox screen RLS: - Nonmedical therapy for restless legs syndrome includes : cold/warm compresses, warm/hot baths or showers, gentle massage, mild leg stretching at nighttime, or magnesium supplements ( 250- 1000 mg at nighttime daily). Mentally alerting activities help too. Note the caffeine, alcohol, nicotine, antidepressants, anti-nausea meds and antihistamines can cause or worsen symptoms. - Continue Requip 0.25 mg PRN for treatment of RLS. - Additional lab work ordered Follow up in 3 month(s) Lakisha Rojo APRN.CNP I spent a total of 34 minutes on the date of the service which included preparing to see the patient, [id number] patient care, completing clinical documentation, obtaining and/or reviewing separately obtained history, counseling and educating the patient/family/caregiver, and ordering medications, tests, or procedures Interval history : Here for follow up for hypersomnia and RLS HYPERSOMNIA : Idiopathic Hypersomnia Naps: No Cataplexy: No Hypnagogic hallucinations: No Dream enactment behaviors: No Sleep related injuries: No Drowsy driving: No Current medications: OARRS checked: Yes Ritalin 10 mg in the afternoon as needed- will take if she has things to do Metadate er 20 mg, twice daily, taken at, 7 am and noon, -used to have a lot of dreams prior to methylphenidate, now does better EKG completed 10/28/2020 Urine tox 05/14/2022 RLS Current treatment requip 0.25mg, rarely has symptoms, takes maybe once monthly, but maybe less Ferritin Date Value Ref Range Status 05/14/2022 23.6 14.7 - 205.1 ng/mL Final 10/28/2020 27.8 14.7 - 205.1 ng/mL Final 11/13/2015 27.4 9.0 - 150.0 ng/mL Final 01/01/2015 21.4 9.0 - 150.0 ng/mL Final Transferrin Saturation Date Value Ref Range Status 05/14/2022 24.1 15.0 - 57.0 % Final 10/28/2020 38 15 - 57 % Final 11/13/2015 20 11 - 46 % Final 01/01/2015 14 11 - 46 % Final Hemoglobin Date Value Ref Range Status 10/28/2020 12.6 11.5 - 15.5 g/dL Final 06/24/2014 12.0 11.5 - 15.5 g/dL Final SLEEP HYGIENE QUESTIONS: Bedtime : 8-10pm Wake up Time : 6-7am Number of times patient wakes up per night : 0-1 Reason (s) why patient wakes up during the night : if her son wakes her Estimated total sleep time ( in a 24 hour period of time) : 8-10 Naps : No PATIENT-ENTERED QUESTIONNAIRE SLEEP SCORES Sleep Questions 09/03/2022 Reason for visit: Excessive daytime sleepiness Average hours slept in 24 hours: 8 Accidents or near accidents due to drowsy drivin [place] Sleepiness Scale 10/28/2021 02/13/2022 05/13/2022 Score 7 (No daytime sleepiness) 14 (present daytime sleepiness) 6 (No daytime sleepiness) PROMIS CAT Sleep Disturbance 10/28/2021 02/13/2022 05/13/2022 PROMIS Sleep Disturbance T-Score 44 (within normal limits) 52 (within normal limits) 46 (within normal limits) Restless Leg Syndrome 06/22/2021 10/28/2021 05/13/2022 Score 10 8 8 PHQ-9 10/28/2021 02/13/2022 05/13/2022 Score 3 3 0 PROMIS Global Health - (T-Scores - the mean of general population = 50. Five points is a clinically meaningful difference.) 02/13/2022 05/13/2022 07/08/2022 Physical T-Score 50.8 57.7 57.7 Mental T-Score 50.8 56 50.8 PMH, PSH, SH: reviewed SLEEP RELATED ROS Review of Systems HENT: Positive for dry mouth Cardiovascular: Negative for palpitations. Genitourinary: Negative for nocturia. Skin: Negative for rash. Neurological: Negative for headaches. ALLERGIES Allergen Reactions Sulfa (Sulfonamide * Hives, Rash CURRENT MEDICATIONS: methylphenidate (RITALIN) 10 mg tablet Take 1 tablet in afternoon as needed for hypersomnia/sleepiness. Do not start before June 27, 2022. methylphenidate (RITALIN) 10 mg tablet Take 1 tablet in afternoon as needed for hypersomnia/sleepiness. Do not start before July 27, 2022. methylphenidate ER (METADATE ER) 20 mg ER tablet Take 1 tablet twice daily as instructed. methylphenidate ER (METADATE ER) 20 mg ER tablet Take 1 tablet twice daily as instructed. Do not start before June 30, 2022. rOPINIRole (REQUIP) 0.25 mg tablet Take 1 tablet by mouth at bedtime as needed. albuterol HFA (PROAIR HFA) 90 mcg/actuation inhaler Inhale 2 Puffs as instructed every 6 hours as needed. spironolactone (ALDACTONE) 100 mg tablet Take 100 mg by mouth once daily. meloxicam (MOBIC) 15 mg tablet Take 15 mg by mouth once daily. therapeutic multivitamin (THERA VITAMIN) tablet Take 1 tablet by mouth once daily. PHYSICAL EXAMINATION: Vital Signs: Deferred due to virtual visit via Zoom. General appearance: NAD Mental status: awake and alert Constitutional: Well groomed Skin: Dry and intact Neuro: Speech fluent IMPRESSION: Idiopathic hypersomnia with long sleep time Rls (restless legs syndrome) (primary encounter diagnosis) Marycarmen Solomon is a 32 year old female with a PMH of iron deficiency who presents via zoom for hypersomnia and RLS follow up. PSG completed 01/21/2015 was negative for CALEB with a AHI of 0. MSLT completed 01/22/2015 was normal with MSL of 9 mins, 39 seconds and was consistent with sleep deprivation. -Ms. Solomon is doing well. She continues to maintain a regular sleep schedule, averaging at least 8 hours per night. She denies nocturnal awakenings. She takes her metadate ER 20 mg, twice daily as directed. She denies side effects. Uses her 10 mg IR as needed in the afternoons. Reports she only takes it if she needs to do something otherwise will skip this dose. She denies side effects from medication. -Her RLS symptoms are very rarey, maybe once per month. She takes medication for it even less than that. Iron levels were low at last check, but she remains stable. PLAN: -Continue metadate ER 20 mg twice dialy. Scripts sent -Continue methylphenidate 10 mg daily. Scripts ent -Continue 7-9 hours of sleep nightly -follow up in 3 months, due for in person, can be with us or Dr. Weinstein. If he's booked farther out can follow up in 3 months with [facility] ONCOLOGY NURSE and 6 months in person with (Pt lives in [place]) Jesu Mcginnis APRN.ELECTRONICS ASSEMBLER AND TESTER documented in this encounter [facility] 07-12-2022 Note HNO ID: [id number] Author: Kathrin Alonzo APRN.CORPORATE CLAIMS EXAMINER Service: ? Author Type: Nurse Specialist Type: Progress Notes Filed: 07/12/2022 9:32 AM Note Text: SUBJECTIVE: COVID-19 VACCINE(1) Never done PNEUMOCOCCAL(1 - PCV) Never done HEPATITIS C SCREENING Never done HIV SCREENING Never done INFLUENZA(1) due on 05/20/2022 JOSELITO Solomon is a 32 year old female. PMH significant for ACTIVE PROBLEM LIST Sleep Talking Rls (Restless Legs Syndrome) Iron deficiency, relative. Idiopathic Hypersomnia With Long Sleep Time Present to establish care. In her usual state of health. Stable weight. Active. Former patient in family and internal medicine. Dr Lowry previous primary doctor. Followed by [facility]. STATION CAPTAIN: [facility], recently seen and has had HPV and Pap, she reports within normal limits. Intends to continue to follow there. Dermatology: Took Accutane in the past, had elevated lipid. Recheck lipids off Accutane reported as normalized. Taking spironolactone. Last seen primary care 7 years ago. Prior history of asthma, seen by Dr Campbell and Sarai Varma 2017. Review of Systems Constitutional: Negative. Objective BP 116/72 Pulse 83 Resp 16 Wt 71.7 kg (158 lb) LMP 12/10/2020 (Exact Date) SpO2 99% BMI 24.38 kg/m? Physical Exam Vitals and nursing note reviewed. Constitutional: Appearance: Normal appearance. HENT: Head: Normocephalic and atraumatic. Eyes: Conjunctiva/sclera: Conjunctivae normal. Neck: Thyroid: No thyromegaly. Vascular: Normal carotid pulses. No JVD. Cardiovascular: Rate and Rhythm: Normal rate and regular rhythm. Pulses: Carotid pulses are 2+ on the right side and 2+ on the left side. Radial pulses are 2+ on the right side and 2+ on the left side. Heart sounds: Normal heart sounds. Pulmonary: Effort: Pulmonary effort is normal. Breath sounds: Normal breath sounds. Abdominal: General: Bowel sounds are normal. Palpations: Abdomen is soft. Musculoskeletal: Right lower leg: No edema. Left lower leg: No edema. Skin: General: Skin is warm and dry. Neurological: General: No focal deficit present. Mental Status: She is alert and oriented to person, place, and time. ALLERGIES Allergen Reactions Sulfa (Sulfonamide * Hives, Rash Medications methylphenidate (RITALIN) 10 mg tablet Take 1 tablet in afternoon as needed for hypersomnia/sleepiness. Do not start before June 27, 2022. [START ON 07/27/2022] methylphenidate (RITALIN) 10 mg tablet Take 1 tablet in afternoon as needed for hypersomnia/sleepiness. Do not start before July 27, 2022. methylphenidate ER (METADATE ER) 20 mg ER tablet Take 1 tablet twice daily as instructed. methylphenidate ER (METADATE ER) 20 mg ER tablet Take 1 tablet twice daily as instructed. Do not start before June 30, 2022. rOPINIRole (REQUIP) 0.25 mg tablet Take 1 tablet by mouth at bedtime as needed. albuterol HFA (PROAIR HFA) 90 mcg/actuation inhaler Inhale 2 Puffs as instructed every 6 hours as needed. spironolactone (ALDACTONE) 100 mg tablet Take 100 mg by mouth once daily. meloxicam (MOBIC) 15 mg tablet Take 15 mg by mouth once daily. therapeutic multivitamin (THERA VITAMIN) tablet Take 1 tablet by mouth once daily. PAST MEDICAL HISTORY Diagnosis Date Idiopathic hypersomnia with long sleep time 03/26/2015 NEGATIVE MEDICAL HISTORY Social History Tobacco Use Smoking status: Some Days Types: Cigarettes Smokeless tobacco: Never Substance Use Topics Alcohol use: Yes Alcohol/week: 1.0 standard drink Types: 1 Glasses of Wine (5oz) per week Drug use: No Component Latest Ref Rng AND Units 10/28/2020 07/15/2021 07/15/2021 05/14/2022 9:38 AM 9:38 AM WBC 3.70 - 11.00 k/uL 5.18 RBC 3.90 - 5.20 m/uL 4.12 Hemoglobin 11.5 - 15.5 g/dL 12.6 Hematocrit 36.0 - 46.0 % 37.7 MCV 80.0 - 100.0 fL 91.5 MCH 26.0 - 34.0 pG 30.6 MCHC 30.5 - 36.0 g/dL 33.4 RDW-CV 11.5 - 15.0 % 11.6 Platelet Count 150 - 400 k/uL 284 MPV 9.0 - 12.7 fL 10.2 Neut% % 57.1 Abs Neut (ANC) 1.45 - 7.50 k/uL 2.96 Lymph% % 31.1 Abs Lymph 1.00 - 4.00 k/uL 1.61 [place]% % 6.6 Abs [place] <0.87 k/uL 0.34 Eosin% % 4.4 Abs Eosin <0.46 k/uL 0.23 Baso% % 0.8 Abs Baso <0.11 k/uL 0.04 Nucleated Reds 0 /100 WBC 0.0 Absolute nRBC <0.01 k/uL <0.01 Diff Type Auto Diff Protein, Total 6.3 - 8.0 g/dL 8.0 7.8 Albumin 3.9 - 4.9 g/dL 4.6 4.3 Calcium 8.5 - 10.2 mg/dL 9.3 9.6 Bilirubin, Total 0.2 - 1.3 mg/dL 0.3 0.2 Alkaline Phosphatase 34 - 123 U/L 60 57 AST 13 - 35 U/L 12 (L) 20 Glucose 74 - 99 mg/dL 91 68 (L) BUN 7 - 21 mg/dL 13 9 Creatinine 0.58 - 0.96 mg/dL 0.75 0.75 Sodium 136 - 144 mmol/L 139 136 Potassium 3.7 - 5.1 mmol/L 3.7 4.5 Chloride 97 - 105 mmol/L 102 100 CO2 22 - 30 mmol/L 27 24 Anion Gap 9 - 18 mmol/L 10 12 ALT 7 - 38 U/L 9 10 eGFR- >60 >60 eGFR-All Other Races . >60 >60 Cholesterol, Total <200 mg/dL 273 (H) Triglyceride <150 m (more content not included)... [facility] 07-12-2022 History of Presen t illness Narrative SUBJECTIVE: COVID-19 VACCINE(1) Never done PNEUMOCOCCAL(1 - PCV) Never done HEPATITIS C SCREENING Never done HIV SCREENING Never done INFLUENZA(1) due on 05/20/2022 JOSELITO Solomon is a 32 year old female. PMH significant for ACTIVE PROBLEM LIST Sleep Talking Rls (Restless Legs Syndrome) Iron deficiency, relative. Idiopathic Hypersomnia With Long Sleep Time Present to establish care. In her usual state of health. Stable weight. Active. Former patient in family and internal medicine. Dr Lowry previous primary doctor. Followed by [facility]. STATION CAPTAIN: [facility], recently seen and has had HPV and Pap, she reports within normal limits. Intends to continue to follow there. Dermatology: Took Accutane in the past, had elevated lipid. Recheck lipids off Accutane reported as normalized. Taking spironolactone. Last seen primary care 7 years ago. Prior history of asthma, seen by Dr Campbell and Sarai Varma 2017. Review of Systems Constitutional: Negative. Objective BP 116/72 Pulse 83 Resp 16 Wt 71.7 kg (158 lb) LMP 12/10/2020 (Exact Date) SpO2 99% BMI 24.38 kg/m Physical Exam Vitals and nursing note reviewed. Constitutional: Appearance: Normal appearance. HENT: Head: Normocephalic and atraumatic. Eyes: Conjunctiva/sclera: Conjunctivae normal. Neck: Thyroid: No thyromegaly. Vascular: Normal carotid pulses. No JVD. Cardiovascular: Rate and Rhythm: Normal rate and regular rhythm. Pulses: Carotid pulses are 2+ on the right side and 2+ on the left side. Radial pulses are 2+ on the right side and 2+ on the left side. Heart sounds: Normal heart sounds. Pulmonary: Effort: Pulmonary effort is normal. Breath sounds: Normal breath sounds. Abdominal: General: Bowel sounds are normal. Palpations: Abdomen is soft. Musculoskeletal: Right lower leg: No edema. Left lower leg: No edema. Skin: General: Skin is warm and dry. Neurological: General: No focal deficit present. Mental Status: She is alert and oriented to person, place, and time. ALLERGIES Allergen Reactions Sulfa (Sulfonamide * Hives, Rash Medications methylphenidate (RITALIN) 10 mg tablet Take 1 tablet in afternoon as needed for hypersomnia/sleepiness. Do not start before June 27, 2022. [START ON 07/27/2022] methylphenidate (RITALIN) 10 mg tablet Take 1 tablet in afternoon as needed for hypersomnia/sleepiness. Do not start before July 27, 2022. methylphenidate ER (METADATE ER) 20 mg ER tablet Take 1 tablet twice daily as instructed. methylphenidate ER (METADATE ER) 20 mg ER tablet Take 1 tablet twice daily as instructed. Do not start before June 30, 2022. rOPINIRole (REQUIP) 0.25 mg tablet Take 1 tablet by mouth at bedtime as needed. albuterol HFA (PROAIR HFA) 90 mcg/actuation inhaler Inhale 2 Puffs as instructed every 6 hours as needed. spironolactone (ALDACTONE) 100 mg tablet Take 100 mg by mouth once daily. meloxicam (MOBIC) 15 mg tablet Take 15 mg by mouth once daily. therapeutic multivitamin (THERA VITAMIN) tablet Take 1 tablet by mouth once daily. PAST MEDICAL HISTORY Diagnosis Date Idiopathic hypersomnia with long sleep time 03/26/2015 NEGATIVE MEDICAL HISTORY Social History Tobacco Use Smoking status: Some Days Types: Cigarettes Smokeless tobacco: Never Substance Use Topics Alcohol use: Yes Alcohol/week: 1.0 standard drink Types: 1 Glasses of Wine (5oz) per week Drug use: No Component Latest Ref Rng & Units 10/28/2020 07/15/2021 07/15/2021 05/14/2022 9:38 AM 9:38 AM WBC 3.70 - 11.00 k/uL 5.18 RBC 3.90 - 5.20 m/uL 4.12 Hemoglobin 11.5 - 15.5 g/dL 12.6 Hematocrit 36.0 - 46.0 % 37.7 MCV 80.0 - 100.0 fL 91.5 MCH 26.0 - 34.0 pG 30.6 MCHC 30.5 - 36.0 g/dL 33.4 RDW-CV 11.5 - 15.0 % 11.6 Platelet Count 150 - 400 k/uL 284 MPV 9.0 - 12.7 fL 10.2 Neut% % 57.1 Abs Neut (ANC) 1.45 - 7.50 k/uL 2.96 Lymph% % 31.1 Abs Lymph 1.00 - 4.00 k/uL 1.61 [place]% % 6.6 Abs [place] <0.87 k/uL 0.34 Eosin% % 4.4 Abs Eosin <0.46 k/uL 0.23 Baso% % 0.8 Abs Baso <0.11 k/uL 0.04 Nucleated Reds 0 /100 WBC 0.0 Absolute nRBC <0.01 k/uL <0.01 Diff Type Auto Diff Protein, Total 6.3 - 8.0 g/dL 8.0 7.8 Albumin 3.9 - 4.9 g/dL 4.6 4.3 Calcium 8.5 - 10.2 mg/dL 9.3 9.6 Bilirubin, Total 0.2 - 1.3 mg/dL 0.3 0.2 Alkaline Phosphatase 34 - 123 U/L 60 57 AST 13 - 35 U/L 12 (L) 20 Glucose 74 - 99 mg/dL 91 68 (L) BUN 7 - 21 mg/dL 13 9 Creatinine 0.58 - 0.96 mg/dL 0.75 0.75 Sodium 136 - 144 mmol/L 139 136 Potassium 3.7 - 5.1 mmol/L 3.7 4.5 Chloride 97 - 105 mmol/L 102 100 CO2 22 - 30 mmol/L 27 24 Anion Gap 9 - 18 mmol/L 10 12 ALT 7 - 38 U/L 9 10 eGFR- >60 >60 eGFR-All Other Races . >60 >60 Cholesterol, Total <200 mg/dL 273 (H) Triglyceride <150 mg/dL 160 (H) HDL Cholesterol >39 mg/dL 53 LDL Cholesterol <100 mg/dL 188 (H) Non HDL Cholesterol <130 mg/dL 220 (H) Fasting Time hrs Unknown VLDL Cholesterol <30 mg/dL Test Not Indicated 32 (H) TC:HDL Ratio <5.10 5.15 (H) LDL:HDL Ratio <2.54 3.55 (H) Iron 41 - 186 ug/dL 125 86 TIBC 232 - 386 ug/dL 328 357 Transferrin Saturation 15.0 - 57.0 % 38 24.1 LDL Cholesterol, Direct <100 mg/dL 176 (H) Ferritin 14.7 - 205.1 ng/mL 27.8 23.6 Vitamin D 25 Hydroxy 31.0 - 80.0 ng/mL 29.3 (L) 53.5 ASSESSMENT/PLAN: 1. Routine medical exam - ICD9: V70.0, ICD10: Z00.00 (primary diagnosis) - Endorse plant based diet and regular exercise - Endorse calcium intake with supplements or by diet 2. Encounter for immunization - ICD9: V03.89, ICD10: Z23 - PFIZER[employer] COVID-19 BIVALENT BOOSTER VACCINE, AGE 12+ YR - INFLUENZA VACCINE QUADRIVALENT 6 MO - 64 YRS IM 3. Special screening examination for viral disease - ICD9: V73.99, ICD10: Z11.59 - HEP C AB IA W/CONF SCRN 4. Screening for HIV (human immunodeficiency virus) - ICD9: V73.89, ICD10: Z11.4 - HIV 1 2 COMBO(AG/AB),WITH REFLEX TO DIFFERENTIATION 5. Screening for cervical cancer - ICD9: V76.2, ICD10: Z12.4 Followed at [facility], recent exam and testing reported. 6-12 mo follow up Alejandro Mc MD to establish care. Kathrin Alonzo APRN.CORPORATE CLAIMS EXAMINER documented in this encounter [facility] 06-01-2022 Miscellaneous Notes I re-wrote scripts for one at a time and would go through as normal or escript. This is being looking into by [email or web address] team. All scripts should be at pharmacy per OARs start dates. PDMP website checked and validated. All prescriptions have been APPROPRIATELY filled. No suspicious activity was identified. 06/01/2022 by Lakisha Rojo APRN.CNP Attempted to call in prescriptions for Metadate ER and Ritalin IR for 3 month supply to Preferred pharmacy: [id number] - [place] [address] - [address] [facility] [phone] [id number] Spoke to pharmacist and cannot call in C2 class meds. Must either be printed with wet signature and taken to pharmacy or our e-rx issue must be fixed. Wrote scripts as normal class again. Defaulted print again. Please call these prescriptions in the pharmacy and I will contact IT through [email or web address] to fix issue. Refills already on file but all were ordered as print rx and did not go to pharmacy. Orders re-pended and sent to provider for signature. documented in this encounter [facility] 05-13-2022 History of Presen t illness Narrative Images from the original note were not included. [facility] Virtual Visit Follow up/ Established patient visit Date of last visit : 02/17/2022 IMPRESSION: Idiopathic hypersomnia with long sleep time (primary encounter diagnosis) Rls (restless legs syndrome) PLAN: Hypersomnia: - Continue taking: Ritalin 10 mg PRN in the afternoon Metadate 20 mg ER in the morning and afternoon Refills sent pre dated per OARs - Avoid driving when drowsy. - roll over loader for short naps (20-30 minutes) and use of caffeine if needed to help stay awake when driving. - Try to get at least 7-9 hours of sleep in a 24 hour period. Healthy diet and exercise can also promote better sleep. RLS: - Nonmedical therapy for restless legs syndrome includes : cold/warm compresses, warm/hot baths or showers, gentle massage, mild leg stretching at nighttime, or magnesium supplements ( 250- 1000 mg at nighttime daily). Mentally alerting activities help too. Note the caffeine, alcohol, nicotine, antidepressants, anti-nausea meds and antihistamines can cause or worsen symptoms. - Continue Requip 0.25 mg PRN for treatment of RLS. Follow up in 3 month(s) - virtual is OK Lakisha Rojo APRN.ELECTRONICS ASSEMBLER AND TESTER Interval history : Here for follow up for RLS with PRN use of Requip and IH with Metadate 20 mg ER and 10 mg IR without SE or ADRs. RLS Current treatment : Medication(s) and timing : Requip 0.25 mg on rare occasion Status : improved Symptoms are quite infrequent HYPERSOMNIA : Naps: No Cataplexy: No Hypnagogic hallucinations: No Dream enactment behaviors: No Sleep related injuries: No Drowsy driving: No Current medications: OARRS checked: Yes PDMP website checked and validated. All prescriptions have been APPROPRIATELY filled. No suspicious activity was identified. 05/13/2022 by Lakisha Rojo APRN.ELECTRONICS ASSEMBLER AND TESTER EKG: Procedure Date : Oct 28 2020 10:29:20 Edit Date : Nov 05 2020 17:09:50 Diagnosis: NORMAL SINUS RHYTHM WITH SINUS ARRHYTHMIA NORMAL ECG SLEEP FUNCTIONAL OUTCOME MEASURES Reviewed PMH, PSH, SH: Reviewed SLEEP RELATED ROS REVIEW OF SYSTEMS SLEEP RELATED ROS GENERAL: See HPI RESPIRATORY: negative dyspnea CARDIOVASCULAR: negative palpitations and chest pain PSYCH: negative depression, hallucinations and suicidal thoughts ENDOCRINE: negative thyroid problems NEURO: negative cognitive changes and memory problems All other systems reviewed and are negative. ALLERGIES Allergen Reactions Sulfa (Sulfonamide * Hives CURRENT MEDICATIONS: rOPINIRole (REQUIP) 0.25 mg tablet Take 1 tablet by mouth at bedtime as needed. methylphenidate ER (METADATE ER) 20 mg ER tablet Take 1 tablet twice daily as instructed. Do not start before March 18, 2022. methylphenidate (RITALIN) 10 mg tablet Take 1 tablet in afternoon as needed for hypersomnia/sleepiness. Do not start before May 04, 2022. benzonatate (TESSALON PERLES) 100 mg capsule Take 2 capsules by mouth three times daily as needed. albuterol HFA (PROAIR HFA) 90 mcg/actuation inhaler Inhale 2 Puffs as instructed every 6 hours as needed. spironolactone (ALDACTONE) 100 mg tablet Take 100 mg by mouth once daily. meloxicam (MOBIC) 15 mg tablet Take 15 mg by mouth once daily. therapeutic multivitamin (THERA VITAMIN) tablet Take 1 tablet by mouth once daily. PROAIR HFA 90 mcg/actuation inhaler INHALE 2 PUFFS EVERY 4 HOURS NEEDED (Patient not taking: No sig reported) PHYSICAL EXAMINATION: General appearance: awake alert in NAD Mental status: normal Constitutional: Normal IMPRESSION: Idiopathic hypersomnia with long sleep time (primary encounter diagnosis) On stimulant medication Rls (restless legs syndrome) Vitamin d deficiency Iron deficiency Here for follow up for RLS with PRN use of Requip and IH with Metadate 20 mg ER and 10 mg IR without SE or ADRs. PLAN: Hypersomnia: - Continue taking: Ritalin 10 mg PRN in the afternoon Metadate 20 mg ER in the morning and afternoon Refills sent pre dated per OARs - Avoid driving when drowsy. - roll over loader for short naps (20-30 minutes) and use of caffeine if needed to help stay awake when driving. - Try to get at least 7-9 hours of sleep in a 24 hour period. Healthy diet and exercise can also promote better sleep. - Annual tox screen RLS: - Nonmedical therapy for restless legs syndrome includes : cold/warm compresses, warm/hot baths or showers, gentle massage, mild leg stretching at nighttime, or magnesium supplements ( 250- 1000 mg at nighttime daily). Mentally alerting activities help too. Note the caffeine, alcohol, nicotine, antidepressants, anti-nausea meds and antihistamines can cause or worsen symptoms. - Continue Requip 0.25 mg PRN for treatment of RLS. - Additional lab work ordered Follow up in 3 month(s) Lakisha Rojo APRN.YUE I spent a total of 34 minutes on the date of the service which included preparing to see the patient, [id number] patient care, completing clinical documentation, obtaining and/or reviewing separately obtained history, counseling and educating the patient/family/caregiver, and ordering medications, tests, or procedures. documented in this encounter [facility] 02-22-2022 History of Presen t illness Narrative POPULATION HEALTH NAVIGATION OUTREACH Action/FYI Received response from patient via telephone VM. Attempted to respond to patient via telephone, LMOVM. Sent [employer] msg as second attempt today. Encounter close. Pt identified by name and : NO Outreach Outcome/Action Unable to reach patient: Left message [employer] message sent Did you use a PCP flex slot to schedule this appointment? N/A Reason for Outreach Attribution: Provider Off-boarding Payer: Payor: MEL / Plan: [employer] OAP / Product Type: Open Access / Care Gap Reviewed:: Annual Wellness visit Reminder: Reminder note to check Health Maintenance for items below Health Maintenance items due: COVID-19 VACCINE(1) Never done HEPATITIS C SCREENING Never done HIV SCREENING Never done PAP TESTING Never done HPV TESTING Never done Message Sent to Practice: No Navigation Signature: Cherri Gandhi MA February 22, 2022 3:22 PM documented in this encounter [facility] 02-17-2022 History of Presen t illness Narrative Images from the original note were not included. [facility] Virtual Visit Follow up/ Established patient visit Date of last visit : 10/29/2021 Assessment and Plan: ASSESSMENT/PLAN: 1. Idiopathic hypersomnia with long sleep time - ICD9: 327.11, ICD10: G47.11 (primary diagnosis) 2. On stimulant medication - ICD9: V58.69, ICD10: Z79.899 No changes to medications today as symptoms stable and no side effects. ECG ~1 year old. Repeat pending. Will continue Meadate ER 20mg in AM and early afternoon as well as Ritalin 10mg prn in the afternoon. Refills provided. Advised pt not to drive or operate heavy machinery when sleepy. 3. RLS (restless legs syndrome) - ICD9: 333.94, ICD10: G25.81 Rare symptoms but easily treated with 0.25mg of Requip QHS prn. No change in dosing at this time. Pt reporting no need for refills at present. Follow up 3 months or sooner prn. Kayley Weinstein MD Interval history : Here for follow up for RLS with PRN use of Requip and IH with Metadate 20 mg ER and 10 mg IR without SE or ADRs. RLS Current treatment : Medication(s) and timing : Requip 0.25 mg on rare occasion Status : improved Symptoms are quite infrequent HYPERSOMNIA : Naps: No Cataplexy: No Hypnagogic hallucinations: No Dream enactment behaviors: No Sleep related injuries: No Drowsy driving: No Current medications: OARRS checked: Yes PDMP website checked and validated. All prescriptions have been APPROPRIATELY filled. No suspicious activity was identified. 02/17/2022 by Lakisha Rojo APRN.YUE EKG: Procedure Date : Oct 28 2020 10:29:20 Edit Date : Nov 05 2020 17:09:50 Diagnosis: NORMAL SINUS RHYTHM WITH SINUS ARRHYTHMIA NORMAL ECG SLEEP HYGIENE QUESTIONS: Bedtime : 10 PM and asleep by 1030 PM Wake up Time : 6-630 AM with her son Time it takes to fall sleep : 30 minutes Number of times patient wakes up per night : Once with her son Estimated total sleep time ( in a 24 hour period of time) : 7 hours Naps : No SLEEP FUNCTIONAL OUTCOME MEASURES Reviewed PMH, PSH, SH: Reviewed SLEEP RELATED ROS REVIEW OF SYSTEMS SLEEP RELATED ROS GENERAL: See HPI RESPIRATORY: negative dyspnea CARDIOVASCULAR: negative palpitations and chest pain PSYCH: negative depression, hallucinations and suicidal thoughts ENDOCRINE: negative thyroid problems NEURO: negative cognitive changes and memory problems All other systems reviewed and are negative. ALLERGIES Allergen Reactions Sulfa (Sulfonamide * Hives CURRENT MEDICATIONS: methylphenidate ER (METADATE ER) 20 mg ER tablet Take 1 tablet twice daily as instructed. [START ON 04/04/2022] methylphenidate (RITALIN) 10 mg tablet Take 1 tablet in afternoon as needed for hypersomnia/sleepiness. Do not start before April 04, 2022. rOPINIRole (REQUIP) 0.25 mg tablet Take 1 tablet by mouth at bedtime as needed. [START ON 03/18/2022] methylphenidate ER (METADATE ER) 20 mg ER tablet Take 1 tablet twice daily as instructed. Do not start before March 18, 2022. [START ON 04/16/2022] methylphenidate ER (METADATE ER) 20 mg ER tablet Take 1 tablet twice daily as instructed. Do not start before April 16, 2022. [START ON 05/04/2022] methylphenidate (RITALIN) 10 mg tablet Take 1 tablet in afternoon as needed for hypersomnia/sleepiness. Do not start before May 04, 2022. [START ON 03/06/2022] methylphenidate (RITALIN) 10 mg tablet Take 1 tablet in afternoon as needed for hypersomnia/sleepiness. Do not start before March 06, 2022. predniSONE (DELTASONE) 20 mg tablet Take 2 tablets by mouth once daily for 5 days. benzonatate (TESSALON PERLES) 100 mg capsule Take 2 capsules by mouth three times daily as needed. albuterol HFA (PROAIR HFA) 90 mcg/actuation inhaler Inhale 2 Puffs as instructed every 6 hours as needed. spironolactone (ALDACTONE) 100 mg tablet Take 100 mg by mouth once daily. meloxicam (MOBIC) 15 mg tablet Take 15 mg by mouth once daily. PROAIR HFA 90 mcg/actuation inhaler INHALE 2 PUFFS EVERY 4 HOURS NEEDED therapeutic multivitamin (THERA VITAMIN) tablet Take 1 tablet by mouth once daily. PHYSICAL EXAMINATION: General appearance: awake alert in NAD Mental status: normal Constitutional: Normal IMPRESSION: Idiopathic hypersomnia with long sleep time (primary encounter diagnosis) Rls (restless legs syndrome) PLAN: Hypersomnia: - Continue taking: Ritalin 10 mg PRN in the afternoon Metadate 20 mg ER in the morning and afternoon Refills sent pre dated per OARs - Avoid driving when drowsy. - roll over loader for short naps (20-30 minutes) and use of caffeine if needed to help stay awake when driving. - Try to get at least 7-9 hours of sleep in a 24 hour period. Healthy diet and exercise can also promote better sleep. RLS: - Nonmedical therapy for restless legs syndrome includes : cold/warm compresses, warm/hot baths or showers, gentle massage, mild leg stretching at nighttime, or magnesium supplements ( 250- 1000 mg at nighttime daily). Mentally alerting activities help too. Note the caffeine, alcohol, nicotine, antidepressants, anti-nausea meds and antihistamines can cause or worsen symptoms. - Continue Requip 0.25 mg PRN for treatment of RLS. Follow up in 3 month(s) - virtual is OK Lakisha Rojo APRN.ELECTRONICS ASSEMBLER AND TESTER I spent a total of 27 minutes on the date of the service which included preparing to see the patient, [id number] patient care, completing clinical documentation, obtaining and/or reviewing separately obtained history, counseling and educating the patient/family/caregiver and ordering medications, tests, or procedures. documented in this encounter [facility] 02-13-2022 History of Presen t illness Narrative This note was created using [employer]. Subjective Marycarmen Solomon is a 31 year old female. HPI Patient presents with a chief complaint of cough over the past week. She states her ribs have been hurting from coughing. She has had low-grade fevers. She did take an at home COVID test yesterday which was negative. She also checked her son which was negative. She denies loss of smell or taste. No vomiting or diarrhea. She does have a history of asthma and does not currently have an inhaler. She has felt wheezy. Review of Systems Constitutional: Positive for fatigue and fever. HENT: Positive for congestion. Negative for sore throat. Respiratory: Positive for cough and wheezing. Cardiovascular: Rib pain from cough Gastrointestinal: Negative. Genitourinary: Negative. Musculoskeletal: Positive for myalgias. All other systems reviewed and are negative. PAST MEDICAL HISTORY Diagnosis Date Idiopathic hypersomnia with long sleep time 03/26/2015 NEGATIVE MEDICAL HISTORY Current Outpatient Medications Medication Sig Dispense Refill spironolactone (ALDACTONE) 100 mg tablet Take 100 mg by mouth once daily. meloxicam (MOBIC) 15 mg tablet Take 15 mg by mouth once daily. therapeutic multivitamin (THERA VITAMIN) tablet Take 1 tablet by mouth once daily. 0 predniSONE (DELTASONE) 20 mg tablet Take 2 tablets by mouth once daily for 5 days. 10 tablet 0 benzonatate (TESSALON PERLES) 100 mg capsule Take 2 capsules by mouth three times daily as needed. 30 capsule 0 albuterol HFA (PROAIR HFA) 90 mcg/actuation inhaler Inhale 2 Puffs as instructed every 6 hours as needed. 1 Inhaler 0 methylphenidate (RITALIN) 10 mg tablet Take 1 tablet in afternoon as needed for hypersomnia/sleepiness. Do not start before December 25, 2021. 30 tablet 0 methylphenidate ER (METADATE ER) 20 mg ER tablet Take 1 tablet twice daily as instructed. Do not start before December 25, 2021. 60 tablet 0 methylphenidate (RITALIN) 10 mg tablet Take 1 tablet in afternoon as needed for hypersomnia/sleepiness. Do not start before November 26, 2021. 30 tablet 0 methylphenidate ER (METADATE ER) 20 mg ER tablet Take 1 tablet twice daily as instructed. Do not start before November 26, 2021. 60 tablet 0 methylphenidate ER (METADATE ER) 20 mg ER tablet Take 1 tablet twice daily as instructed. 60 tablet 0 methylphenidate (RITALIN) 10 mg tablet Take 1 tablet in afternoon as needed for hypersomnia/sleepiness. 30 tablet 0 ISOtretinoin (ACCUTANE) 30 mg capsule (Patient not taking: Reported on 02/13/2022 ) TRI FEMYNOR 0.18/0.215/0.25 mg-35 mcg (28) (Patient not taking: Reported on 02/13/2022 ) rOPINIRole (REQUIP) 0.25 mg tablet Take 1 tablet by mouth at bedtime as needed. 30 tablet 5 PROAIR HFA 90 mcg/actuation inhaler INHALE 2 PUFFS EVERY 4 HOURS NEEDED (Patient not taking: Reported on 09/17/2021) 1 Inhaler 3 No current facility-administered medications for this visit. PAST SURGICAL HISTORY Procedure Laterality Date TONSILLECTOMY PRIMARY/SECONDARY <AGE 10 Tonsillectomy FAMILY HISTORY Problem Relation Age of Onset None Mother None Father None Sister TWIN None Brother Social History Tobacco Use Smoking status: Never Smoker Smokeless tobacco: Never Used Substance Use Topics Alcohol use: Yes Alcohol/week: 1.0 standard drink Types: 1 Glasses of Wine (5oz) per week Drug use: No Objective BP 138/94 Pulse 107 Temp 37 C (98.6 F) Resp 24 Wt 72.1 kg (159 lb) LMP 12/10/2020 (Exact Date) SpO2 98% BMI 24.54 kg/m Physical Exam Vitals reviewed. Constitutional: Appearance: Normal appearance. HENT: Head: Normocephalic and atraumatic. Right Ear: Tympanic membrane, ear canal and external ear normal. Left Ear: Tympanic membrane, ear canal and external ear normal. Nose: Nose normal. Mouth/Throat: Mouth: Mucous membranes are moist. Pharynx: Oropharynx is clear. Cardiovascular: Rate and Rhythm: Normal rate and regular rhythm. Heart sounds: Normal heart sounds. Pulmonary: Effort: Pulmonary effort is normal. Breath sounds: Normal breath sounds. Comments: Harsh cough noted Musculoskeletal: Cervical back: Neck supple. Lymphadenopathy: Cervical: No cervical adenopathy. Skin: General: Skin is warm and dry. Findings: No rash. Neurological: Mental Status: She is alert. Assessment and Plan ASSESSMENT/PLAN: 1. Bronchitis - ICD9: 490, ICD10: J40 Chest x-ray clear. Patient declined a PCR COVID test. I will treat with prednisone, Tessalon and albuterol inhaler. Discussed follow-up if not improving. Patient does need to establish with PCP, encouraged her to stop with [facility] prior to leaving. 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 documented as of this encounter (statuses as of 02/22/2022) [address]2015 History of Past illness Narrative* Problem Noted Date Resolved Date 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 documented as of this encounter (statuses as of 05/13/2022) [address]2015 History of Past illness Narrative* Problem Noted Date Resolved Date 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 documented as of this encounter (statuses as of 06/01/2022) [address]2015 History of Past illness Narrative* Problem Noted Date Resolved Date 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 documented as of this encounter (statuses as of 07/12/2022) [address]2015 History of Past illness Narrative* Problem Noted Date Resolved Date 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 documented as of this encounter (statuses as of 09/03/2022) [address]2015 History of Past illness Narrative* Problem Noted Date Resolved Date 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 documented as of this encounter (statuses as of 12/06/2022) [address]2015 History of Past illness Narrative* Problem Noted Date Resolved Date 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 documented as of this encounter (statuses as of 03/03/2023) [address]2015 History of Past illness Narrative* Problem Noted Date Resolved Date 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 documented as of this encounter (statuses as of 03/25/2023) [address]2015 History of Past illness Narrative* Problem Noted Date Diagnosed Date Resolved Date 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 documented as of this encounter (statuses as of 06/07/2023) [facility] Diagnosis Bronchitis- Primary Bronchitis, not specified as acute or chronic [facility] Diagnosis 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 RLS (restless legs syndrome) Restless legs syndrome (RLS) documented in this encounter [facility] note* Diagnosis 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 On stimulant medication RLS (restless legs syndrome) Restless legs syndrome (RLS) Vitamin D deficiency Unspecified vitamin D deficiency Iron deficiency Iron deficiency anemia, unspecified documented in this encounter [facility] note* Diagnosis Idiopathic hypersomnia with long sleep time documented in this encounter [facility] note* Diagnosis Routine medical exam- Primary Routine general medical examination at a health care facility Encounter for immunization Need for other specified prophylactic vaccination against single bacterial disease Special screening examination for viral disease Special screening examination for unspecified viral disease Screening for HIV (human immunodeficiency virus) Special screening examination for other specified viral diseases Screening for cervical cancer Screening for malignant neoplasm of the cervix documented in this encounter [facility] note* Diagnosis RLS (restless legs syndrome)- Primary Restless legs syndrome (RLS) Idiopathic hypersomnia with long sleep time documented in this encounter [facility] note* Diagnosis RLS (restless legs syndrome)- Primary Restless legs syndrome (RLS) Idiopathic hypersomnia with long sleep time documented in this encounter [facility] note* Diagnosis 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 On stimulant medication documented in this encounter [facility] note* Diagnosis Strep pharyngitis- Primary Streptococcal sore throat documented in this encounter [facility] for referral (narrative)* Outpatient Procedure (Routine) - Pending Review Specialty Diagnoses / Procedures Referred By Curtis ponce [facility] Diagnoses On stimulant medication Procedures ECG COMPLETE ECG ROUTINE ECG W/LEAST 12 LDS W/I&R Kayley Weinstein Jr., MD [id number] [id number] [facility] [place] [address] [place] [id number] Referral ID Status Reason Start Date Expiration Date Visits Requested Visits Authorized [id number] Pending Review Auto-Generat ed Referral 03/03/2023 03/02/2024 1 1 [facility] Summary Purpose Family History No Family History Records Found Advance Directives No Advanced Directives Records Found Additional Source Comments Source Comments (unrecognize d section and content) In the event this informatio n is protected by the Federal Confidentiality of Alcohol and Drug Abuse Patient Records regulations: The Federal rules restrict any use of the information to criminally investigate or prosecute any alcohol or drug abuse patient.[facility] the event this information is protected by the Federal Confidentiality of Alcohol and Drug Abuse Patient Records regulations: The Federal rules restrict any use of the information to criminally investigate or prosecute any alcohol or drug abuse patient.[facility] the event this information is protected by the Federal Confidentiality of Alcohol and Drug Abuse Patient Records regulations: The Federal rules restrict any use of the information to criminally investigate or prosecute any alcohol or drug abuse patient.[facility] the event this information is protected by the Federal Confidentiality of Alcohol and Drug Abuse Patient Records regulations: The Federal rules restrict any use of the information to criminally investigate or prosecute any alcohol or drug abuse patient.[facility] the event this information is protected by the Federal Confidentiality of Alcohol and Drug Abuse Patient Records regulations: The Federal rules restrict any use of the information to criminally investigate or prosecute any alcohol or drug abuse patient.[facility] the event this information is protected by the Federal Confidentiality of Alcohol and Drug Abuse Patient Records regulations: The Federal rules restrict any use of the information to criminally investigate or prosecute any alcohol or drug abuse patient.[facility] Hospital[facility] the event this information is protected by the Federal Confidentiality of Alcohol and Drug Abuse Patient Records regulations: The Federal rules restrict any use of the information to criminally investigate or prosecute any alcohol or drug abuse patient.[facility] Hospital[facility] the event this information is protected by the Federal Confidentiality of Alcohol and Drug Abuse Patient Records regulations: The Federal rules restrict any use of the information to criminally investigate or prosecute any alcohol or drug abuse patient.[facility] Hospital[facility] the event this information is protected by the Federal Confidentiality of Alcohol and Drug Abuse Patient Records regulations: The Federal rules restrict any use of the information to criminally investigate or prosecute any alcohol or drug abuse patient.[facility] Hospital[facility] the event this information is protected by the Federal Confidentiality of Alcohol and Drug Abuse Patient Records regulations: The Federal rules restrict any use of the information to criminally investigate or prosecute any alcohol or drug abuse patient.[facility] HospitalIn the event this information is protected by the Federal Confidentiality of Alcohol and Drug Abuse Patient Records regulations: The Federal rules restrict any use of the information to criminally investigate or prosecute any alcohol or drug abuse patient.[facility] Reason for Visit (unrecogniz ed section and content) Reason Comments Follow Up Reason Onset Date Comments Population Health Navigation Outreach 02/22/2022 Offboarding - Dr Da Lowry III - returning my call from 10/07/2021 Reason Onset Date Comments Refill Request 05/31/2022 Reason Comments Establish Care Reason Comments Medication Follow-up Reason Comments Rx Refills Reason Comments Follow Up Reason Comments Pain, Throat Pt reported throat p ain (RT) ear pain x3 days. Reason Comments Appointment Care Teams (unrecognized sec tion and content) Draw Machine Operator Relationship Specialty Start Date End Date Alejandro Mc MD [address] [place] [address] PCP - General Internal Medicine 03/02/22 Draw Machine Operator Relationship Specialty Start Date End Date Alejandro Mc MD [address] [place] [id number] PCP - General Internal Medicine 07/12/22 Draw Machine Operator Relationship Specialty Start Date End Date Alejandro Mc MD [address] [place] [id number] PCP - General Internal Medicine 07/12/22 Draw Machine Operator Relationship Specialty Start Date End Date Alejandro Mc MD [address] [place] [id number] PCP - General Internal Medicine 07/12/22 Draw Machine Operator Relationship Specialty Start Date End Date Alejandro Mc MD [address] [place] [id number] PCP - General Internal Medicine 07/12/22 Draw Machine Operator Relationship Specialty Start Date End Date Alejandro Mc MD [address] [place] [id number] PCP - General Internal Medicine 07/12/22 Draw Machine Operator Relationship Specialty Start Date End Date Alejandro Mc MD [address] [place] [id number] PCP - General Internal Medicine 07/12/22 Hypersomnia [facility] Sleep Medicine 05/12/23 INFORMATION SOURCE (unrecogn ized section and content) FOR RECORDS PERTAINING TO PATIENTS WHO ARE OR HAVE BEEN ENROLLED IN A CHEMICAL DEPENDENCY/SUBSTANCEABUSE PROGRAM, SOME INFORMATION MAY BE OMITTED. This clinical summary was aggregated from multiple sources. Caution should be exercised in using it in the provision of clinical care. This summary normalizes information from multiple sources, and as a consequence, information in this document may materially change the coding, format and clinical context of patient data. In addition, data may be omitted in some cases. CLINICAL DECISIONS SHOULD BE BASED ON THE PRIMARY CLINICAL RECORDS. [facility] [employer], [facility]. provides no warranty or guarantee of the accuracy or completeness of information in this document.
[2023-10-24 22:07] LABS: Chlamydia By Nucleic Acid AMP Negative (Negative); Gonococcus By Nucleic Acid AMP Negative (Negative)
[2023-10-25 21:07] LABS: HPV APTIMA, High Risk Negative (Negative)
== END | disposition home or self-care (01) ==
LOC: LABSPEC 16:47
PROVIDERS: PCP Clinical Nurse Specialist; Referring Provider Advanced Practice Midwife; Visit Provider Advanced Practice Midwife
DX: Z34.90 Encounter for supervision of normal pregnancy, unspecified, unspecified trimester (principal)
CPT/HCPCS: 87086; 87491; 87591; 87624; 88175; G0145

== ENCOUNTER → 2023-11-07 | Outpatient (CLI) | payer OTHER, SELFPAY ==
--- OUTSIDE RECORDS SUMMARY | 2023-11-07 09:39 | XMS RPT_ITS | CCD ---
Author Name Unknown Address [address] [facility] [address] [place] [address] Organization [facility] Care Team Providers Care Light Technician Name Role Phone Unavailable Primary Care Provider [...] (SULFONAMIDE ANTIBIOTICS)] Drug Allergy 03-08-2006 Bertha Johnson [facility] Work Phone: Medications Current Medications Medication [...] Drug Class(es) Dates Sig (Normalized) Sig (Original) [id number] 200 actuat albuterol 0.09 mg/actuat metered dose [...] (2 sources) Drug therapy finding; Translations: [Other roasterman (current) drug therapy] Episodic Other aftercare (1 source) Other mcfp (current) drug therapy; Translations: [On stimulant medication] [...] 98.8 [degF] Candelaria Athy PA-C Work Phone: [facility] 03-25-2023 07:53-0400 Body weight 73.66 kg Candelaria Athy PA-C Work Phone: [facility] 03-25-2023 07:53-0400 Diastolic blood pressure 70 mm[Hg] Candelaria Athy PA-C Work Phone: [facility] 03-25-2023 07:53-0400 Heart rate 97 /min Candelaria Athy PA-C Work Phone: [facility] 03-25-2023 07:53-0400 Respiratory rate 18 /min Candelaria Athy PA-C Work Phone: [facility] 03-25-2023 07:53-0400 SaO2% (BldA) [Mass fraction] 98 % Candelaria Athy PA-C Work Phone: [facility] 03-25-2023 07:53-0400 Systolic blood pressure 120 mm[Hg] Candelaria Athy PA-C Work Phone: [facility] 03-03-2023 11:08-0400 Body height 170.2 cm Kayley Weinstein Jr., MD Work Phone: [facility] 03-03-2023 11:08-0400 Body weight 73.85 kg Kayley Weinstein Jr., MD Work Phone: [facility] 03-03-2023 11:08-0400 Diastolic blood pressure 80 mm[Hg] Kayley Weinstein Jr., MD Work Phone: [facility] 03-03-2023 11:08-0400 Heart rate 94 /min Kalyey Weinstein Jr., MD Work Phone: [facility] 03-03-2023 11:08-0400 SaO2% (BldA) [Mass fraction] 99 % Kayley Weinstein Jr., MD Work Phone: [facility] 03-03-2023 11:08-0400 Systolic blood pressure 127 mm[Hg] Kayley Weinstein Jr., MD Work Phone: [facility] 07-12-2022 07:38-0400 Body weight 71.67 kg Kathrin Alonzo COMMUNITY SERVICE COORDINATOR.MACHINE OPERATOR CANE CUTTER Work Phone: [facility] 07-12-2022 07:38-0400 Diastolic blood pressure 72 mm[Hg] Kathrin Alonzo COMMUNITY SERVICE COORDINATOR.MACHINE OPERATOR CANE CUTTER Work Phone: [facility] 07-12-2022 07:38-0400 Heart rate 83 /min Kathrin Alonzo COMMUNITY SERVICE COORDINATOR.MACHINE OPERATOR CANE CUTTER Work Phone: [facility] 07-12-2022 07:38-0400 Respiratory rate 16 /min Kathrin Alonzo COMMUNITY SERVICE COORDINATOR.MACHINE OPERATOR CANE CUTTER Work Phone: [facility] 07-12-2022 07:38-0400 SaO2% (BldA) [Mass fraction] 99 % Kathrin Alonzo COMMUNITY SERVICE COORDINATOR.MACHINE OPERATOR CANE CUTTER Work Phone: [facility] 07-12-2022 07:38-0400 Systolic blood pressure 116 mm[Hg] Kathrin Alonzo COMMUNITY SERVICE COORDINATOR.MACHINE OPERATOR CANE CUTTER Work Phone: [facility] 02-13-2022 10:19-0400 Body temperature 98.6 [degF] Candelaria Athy PA-C Work Phone: [facility] 02-13-2022 10:19-0400 Body weight 72.12 kg Candelaria Athy PA-C Work Phone: [facility] 02-13-2022 10:19-0400 Diastolic blood pressure 94 mm[Hg] Candelaria Athy PA-C Work Phone: [facility] 02-13-2022 10:19-0400 Heart rate 107 /min Candelaria Athy PA-C Work Phone: [facility] 02-13-2022 10:19-0400 Respiratory rate 24 /min Candelaria Jessica PA-C Work Phone: [facility] 02-13-2022 10:19-0400 SaO2% (BldA) [Mass fraction] 98 % Candelaria Jessica PA-C Work Phone: [facility] 02-13-2022 10:19-0400 Systolic blood pressure 138 mm[Hg] Candelaria Jessica PA-C Work Phone: [facility] Encounters Encounter Date Encounter Type Care Provider Facility Start: 06-07-2023 Telephone encounter Kayley Weinstein MD Work Phone: Neurology Procedures Date Procedure Procedure Detail Performing Clinician Start: 03-25-2023 STREP A MOLECULAR (POC) Evert Lyn APRN.BACK PAD INSPECTOR Work Phone: Start: 07-12-2022 INFLUENZA VACCINE QUADRIVALENT 6 MO - 64 YRS IM Kathrin Alonzo COMMUNITY SERVICE COORDINATOR.MACHINE OPERATOR CANE CUTTER Work Phone: Start: 07-12-2022 PFIZER-BIONTECH COVI D-19 BIVALENT BOOSTER VACCINE, AGE 12+ YR Kathrin Alonzo COMMUNITY SERVICE COORDINATOR.MACHINE OPERATOR CANE CUTTER Work Phone: Start: 05-13-2022 Adult depression scr eening assessment Lakisha Rojo COMMUNITY SERVICE COORDINATOR.BACK PAD INSPECTOR Work Phone: Start: 02-13-2022 Adult depression scr eening assessment Lakisha Rojo COMMUNITY SERVICE COORDINATOR.BACK PAD INSPECTOR Work Phone: Start: 10-28-2021 Adult depression scr eening assessment Candelaria Jessica PA-C Work Phone: Plan of Treatment Date Care Activity Detail Author Start: 02-07-2024 Urine microalbumin profile [facility] Start: 07-12-2023 HPV TESTING HPV TESTING [facility] Immunizations Immunization Date Immunization Notes Care Provider Malina horowitz 07-12-2022 COVID-19 booster vaccine, age 12+ yr, bivalent (PFIZER-BIONTECH) Kathrin Alonzo COMMUNITY SERVICE COORDINATOR.MACHINE OPERATOR CANE CUTTER Work Phone: [facility] Work Phone: 07-12-2022 influenza, injectabl e, quadrivalent, contains preservative Kathrin Alonzo COMMUNITY SERVICE COORDINATORAnaMACHINE OPERATOR CANE CUTTER Work Phone: [facility] Work Phone: 07-12-2022 influenza virus vacc ine, unspecified formulation Kayley Weinstein Jr., MD Work Phone: [facility] 02-06-2014 tetanus toxoid, redu natanael diphtheria toxoid, and acellular pertussis vaccine, adsorbed Candelaria Athy PA-C Work Phone: [facility] 04-13-2007 meningococcal polysaccharide vaccine (MPSV4) Candelaria Athy PA-C Work Phone: [facility] 03-24-2004 diphtheria and tetan us toxoids, adsorbed for pediatric use Candelaria Athy PA-C Work Phone: [facility] Work Phone: 03-14-2002 hepatitis B vaccine, pediatric or pediatric/adolescent dosage Candelaria Athy PA-C Work Phone: [facility] Work Phone: 04-07-2001 hepatitis B vaccine, pediatric or pediatric/adolescent dosage Candelaria Athy PA-C Work Phone: [facility] Work Phone: 02-27-2001 hepatitis B vaccine, pediatric or pediatric/adolescent dosage Candelaria Athy PA-C Work Phone: [facility] Work Phone: 02-27-2001 measles, mumps and rubella virus vaccine Candelaria Athy PA-C Work Phone: [facility] Work Phone: 11-24-1993 diphtheria and tetan us toxoids, adsorbed for pediatric use Candelaria Athy PA-C Work Phone: [facility] Work Phone: 11-24-1993 diphtheria, tetanus toxoids and acellular pertussis vaccine Candelaria Athy PA-C Work Phone: [facility] Work Phone: 11-24-1993 poliovirus vaccine, inactivated Candelaria Athy PA-C Work Phone: [facility] Work Phone: 05-09-1992 haemophilus influenz ae type b vaccine, HbOC conjugate Candelaria Jessica PA-C Work Phone: [facility] Work Phone: 04-14-1990 diphtheria, tetanus toxoids and acellular pertussis vaccine Candelaria Coltony PA-C Work Phone: [facility] Work Phone: 04-14-1990 poliovirus vaccine, inactivated Candelaria Coltony PA-C Work Phone: [facility] Work Phone: 09-26-1989 measles, mumps and rubella virus vaccine Candelaria Coltony PA-C Work Phone: [facility] Work Phone: 03-31-1989 DTaP-Haemophilus influenzae type b conjugate vaccine Candelaria Seguray PA-C Work Phone: [facility] Work Phone: 02-02-1989 DTaP-Haemophilus influenzae type b conjugate vaccine Candelaria Coltony PA-C Work Phone: [facility] Work Phone: 1988 DTaP-Haemophilus influenzae type b conjugate vaccine Candelaria Athy PA-C Work Phone: [facility] Work Phone: 1988 poliovirus vaccine, inactivated Candelaria Coltony PA-C Work Phone: [facility] Work Phone: 1988 poliovirus vaccine, inactivated Candelaria Athy PA-C Work Phone: [facility] Work Phone: Payers Date Payer Category Payer Private Health Insurance MEL Magaña SABINO RON [id number] 2021-[facility] [phone] YANG [id number] GRISELDA ELAINE [phone] Open Access [id number] 2021 Private Health Insurance MEL VELASQUEZ [id number] 2021-Present [phone] [address] [place] [address] Open Access [id number] 2021 Private Health Insurance [id number] Social History Date Type Detail Facility Start: 02-26-2011 [facility] tobacco [facility] Start: 02-13-2022 End: 03-25-2023 Alcohol intake Current drinker of alcohol (finding) [facility] Start: 08-26-2020 End: 02-13-2022 Alcohol intake [facility] Start: 1990 Sex Assigned At Not on file C [facility] Start: 02-03-2022 End: 07-12-2022 Exposure to SARS-CoV-2 (event) Not sure [facility] Start: 02-26-2011 End: 03-03-2023 Tobacco use and exposure Smokeless tobacco non-user [facility] Work Phone: Start: 07-12-2022 [facility] Occasional tobacco smoker [facility] Work Phone: History of tobacco use Cigarette Smoker C [facility] Work Phone: Start: 07-09-2022 History SDOH Alcohol Frequency [address] [facility] Start: 07-09-2022 History SDOH Alcohol Std Drinks [address] [facility] Start: 07-09-2022 History SDOH Social Connections Phone [address] [facility] Start: 07-09-2022 History SDOH Social Connections Get Together [address] [facility] Start: 07-09-2022 History SDOH Physica l Activity DPW [address] [facility] Start: 03-03-2023 [facility] Ex[facility] History of tobacco use Current smoker [facility] Start: 08-26-2020 End: 07-08-2022 Social connection and isolation panel [facility] Do you belong to any clubs or organizations such as congregational groups, unions, fraternal or athletic groups, or school groups? Yes [facility] Are you now , , , , never or living with a partner? [facility] How often to you hav e a drink containing alcohol? Monthly or less [facility] How many standard dr inks containing alcohol do you have on a typical day? 1 or [address] [facility] How often do you hav e 6 or more drinks on 1 occasion? Never [facility] How hard is it for y ou to pay for the very basics like food, housing, medical care, and heating Not very hard [facility] Adult Depression Screening Assessment [address] [facility] Do you feel stress - tense, restless, nervous, or anxious, or unable to sleep at night because your mind is troubled all the time - these days [OSQ] Only a little [facility] (I/We) worried wheth er (my/our) food would run out before (I/we) got money to buy more. Never true [facility] In the past 12 month s, was there a time when you were not able to pay the mortgage or rent on time? No [facility] Clinical Notes 01-01-2015 to 06-07-2023 Telephone [...] these will need to be completed before mcfp stimulant therapy can be continued. TC to patient who states that she did not have ECG done and it is not currently scheduled. Explained to patient that this needs to be completed before roasterman meds can be written d/t controlled substance [...] patient. RADHA Oconnor documented in this encounter [facility] 03-25-2023 Note HNO ID: [id number] Author: Candelaria Jessica PA-C Service: ? Author Type: Physician Architectural Administrative Assistant Type: Progress Notes Filed: 03/25/2023 9:09 AM Note Text: This note was created using [employer]. Reina Solomon is a 32 year old [...] STREP A MOLECULAR (POC) Candelaria Jessica PA-C [facility] 03-25-2023 History of Presen t illness Narrative This note was created using [employer]. Reina Solomon is a 32 year old [...] Candelaria Jessica PA-C documented in this encounter [facility] 03-25-2023 Instructions Candelaria Jessica PA-C - 03/25/2023 8:13 AM EDT Change toothbrush day three of antibiotics You are contagious for 24 hours after starting amoxicillin documented in this encounter [facility] 03-03-2023 Note HNO ID: [id number] Author: Kayley Weinstein Jr., MD Service: ? [...] directed. - Avoid driving when drowsy. - insole coverer for short naps (20-30 minutes) and use [...] Depression) 1 (None-Minimal Depression) 2 (None-Minimal Depression) [place] Sleepiness Scale 09/03/2022 12/02/2022 03/03/2023 Score 7 [...] 2023. methylphenidate ( (more content not included)... [facility] 03-03-2023 Instructions Kayley Weinstein Jr., MD - 03/03/2023 12:45 PM EDT documented in this encounter [facility] 03-03-2023 History of Presen t illness [...] directed. - Avoid driving when drowsy. - insole coverer for short naps (20-30 minutes) and use [...] Depression) 1 (None-Minimal Depression) 2 (None-Minimal Depression) [place] Sleepiness Scale 09/03/2022 12/02/2022 03/03/2023 Score 7 [...] 4 - Moderate documented in this encounter [facility] 12-02-2022 Note HNO ID: [id number] Author: Yo Light APRN.BACK PAD INSPECTOR Service: ? Author Type: Nurse Practitioner Type: Progress Notes Filed: 12/06/2022 7:53 AM Note Text: [facility] Follow up/ Established [...] can follow up in 3 months with GEOCHEMICAL LABORATORY TECHNICIAN and 6 months in person with (Pt lives in [place]) Jesu Mcginnis APRN.BACK PAD INSPECTOR Interval history : I have communicated my name and active licensure. The patient's identity and physical location were verified at the time of this visit. Either the patient or their legal patient access representative has been informed of the risks [...] activity was identified. 12/02/2022 by Yo Light APRN.BACK PAD INSPECTOR SLEEP HYGIENE QUESTIONS: Estimated total sleep time ( in a 24 hour period of time) : 7 PATIENT-ENTERED QUESTIONNAIRE SLEEP SCORES Sleep Questions 09/03/2022 Reason for visit: Excessive daytime sleepiness Average hours slept in 24 hours: 8 Accidents or near accidents due to drowsy drivin [place] Sleepiness Scale 02/13/2022 05/13/2022 09/03/2022 Score 14 [...] Prior Hypersomnia/Narcolepsy Medications (more content not included)... [facility] 12-02-2022 History of Presen t illness Narrative Images from the original note were not included. [facility] Follow up/ Established [...] can follow up in 3 months with GEOCHEMICAL LABORATORY TECHNICIAN and 6 months in person with (Pt lives in [place]) Jesu Mcginnis APRN.YUE Interval history : I have communicated my name and active licensure. The patient's identity and physical location were verified at the time of this visit. Either the patient or their legal patient access representative has been informed of the risks [...] activity was identified. 12/02/2022 by Yo Light APRN.BACK PAD INSPECTOR SLEEP HYGIENE QUESTIONS: Estimated total sleep time ( in a 24 hour period of time) : 7 PATIENT-ENTERED QUESTIONNAIRE SLEEP SCORES Sleep Questions 09/03/2022 Reason for visit: Excessive daytime sleepiness Average hours slept in 24 hours: 8 Accidents or near accidents due to drowsy drivin [place] Sleepiness Scale 02/13/2022 05/13/2022 09/03/2022 Score 14 [...] directed. - Avoid driving when drowsy. - insole coverer for short naps (20-30 minutes) and use of caffeine if needed to help stay awake when driving. - Try to get at least 7-9 hours of sleep in a 24 hour period. Healthy diet and exercise can also promote better sleep. - Follow up with Dr. Weinstein for appt scheduled in February. Yo Light APRN.BACK PAD INSPECTOR documented in this encounter [facility] 09-03-2022 Note HNO ID: [id number] Author: Jesu Mcginnis APRN.YUE Service: ? Author Type: Nurse Practitioner Type: Progress Notes Filed: 09/03/2022 11:19 AM Note Text: [facility] Follow up/ Established [...] OARs - Avoid driving when drowsy. - insole coverer for short naps (20-30 minutes) and use [...] Follow up in 3 month(s) Lakisha Rojo, LYNNE.BACK PAD INSPECTOR I spent a total of 34 minutes on the date of the service which included preparing to see the patient, [id number] patient care, completing clinical documentation, obtaining and/or [...] or near accidents due to drowsy drivin [place] Sleepiness Scale 10/28/2021 02/13/2022 05/13/2022 Score 7 [...] (METADATE ER) 2 (more content not included)... [facility] 09-03-2022 History of Presen t illness Narrative Images from the original note were not included. [facility] Follow up/ Established [...] OARs - Avoid driving when drowsy. - insole coverer for short naps (20-30 minutes) and use [...] which included preparing to see the patient, [id number] patient care, completing clinical documentation, obtaining and/or [...] or near accidents due to drowsy drivin [place] Sleepiness Scale 10/28/2021 02/13/2022 05/13/2022 Score 7 [...] can follow up in 3 months with GEOCHEMICAL LABORATORY TECHNICIAN and 6 months in person with (Pt lives in [place]) Jesu Mcginnis APRN.BACK PAD INSPECTOR documented in this encounter [facility] 07-12-2022 Note HNO ID: [id number] Author: Kathrin Alonzo APRN.MACHINE OPERATOR CANE CUTTER Service: ? Author Type: Nurse Specialist Type: [...] primary doctor. Followed by [facility]. RETREAD TECHNICIAN: [facility], recently seen and has had HPV and [...] Abs Lymph 1.00 - 4.00 k/uL 1.61 Keith% % 6.6 Abs Keith <0.87 k/uL 0.34 Eosin% % 4.4 Abs [...] Triglyceride <150 m (more content not included)... [facility] 07-12-2022 History of Presen t illness Narrative [...] primary doctor. Followed by [facility]. RETREAD TECHNICIAN: [facility], recently seen and has had HPV and [...] Abs Lymph 1.00 - 4.00 k/uL 1.61 Keith% % 6.6 Abs Keith <0.87 k/uL 0.34 Eosin% % 4.4 Abs [...] - ICD9: V76.2, ICD10: Z12.4 Followed at [facility], recent exam and testing reported. 6-12 mo follow up Alejandro Mc MD to establish care. Kathrin Alonzo APRN.MACHINE OPERATOR CANE CUTTER documented in this encounter [facility] 06-01-2022 Miscellaneous Notes I re-wrote scripts for one at a time and would go through as normal or escript. This is being looking into by [employer] team. All scripts should be at pharmacy per OARs start dates. PDMP website checked and validated. All prescriptions have been APPROPRIATELY filled. No suspicious activity was identified. 06/01/2022 by Lakisha Rojo APRN.CNP Attempted to call in prescriptions for Metadate ER and Ritalin IR for 3 month supply to Preferred pharmacy: [id number] [place] [address] - [address] [facility] [phone] Spoke to pharmacist and cannot call in C2 class meds. Must either be printed with wet signature and taken to pharmacy or our e-rx issue must be fixed. Wrote scripts as normal class again. Defaulted print again. Please call these prescriptions in the pharmacy and I will contact IT through [employer] to fix issue. Refills already on file but all were ordered as print rx and did not go to pharmacy. Orders re-pended and sent to provider for signature. documented in this encounter [facility] 05-13-2022 History of Presen t illness Narrative Images from the original note were not included. [facility] Virtual Visit Follow [...] OARs - Avoid driving when drowsy. - insole coverer for short naps (20-30 minutes) and use [...] month(s) - virtual is OK Lakisha Rojo APRN.BACK PAD INSPECTOR Interval history : Here for follow up [...] activity was identified. 05/13/2022 by Lakisha Rojo APRN.BACK PAD INSPECTOR EKG: Procedure Date : Oct 28 2020 [...] OARs - Avoid driving when drowsy. - insole coverer for short naps (20-30 minutes) and use [...] which included preparing to see the patient, [id number] patient care, completing clinical documentation, obtaining and/or reviewing separately obtained history, counseling and educating the patient/family/caregiver, and ordering medications, tests, or procedures. documented in this encounter [facility] 02-22-2022 History of Presen t illness Narrative POPULATION HEALTH NAVIGATION OUTREACH Action/FYI Received response from patient via telephone VM. Attempted to respond to patient via telephone, LMOVM. Sent [employer] msg as second attempt today. Encounter close. Pt identified by name and : NO Outreach Outcome/Action Unable to reach patient: Left message [employer] message sent Did you use a PCP [...] 2022 3:22 PM documented in this encounter [facility] 02-17-2022 History of Presen t illness Narrative Images from the original note were not included. [facility] Virtual Visit Follow [...] OARs - Avoid driving when drowsy. - insole coverer for short naps (20-30 minutes) and use [...] month(s) - virtual is OK Lakisha Rojo APRN.BACK PAD INSPECTOR I spent a total of 27 minutes on the date of the service which included preparing to see the patient, [id number] patient care, completing clinical documentation, obtaining and/or reviewing separately obtained history, counseling and educating the patient/family/caregiver and ordering medications, tests, or procedures. documented in this encounter [facility] 02-13-2022 History of Presen t illness Narrative This note was created using [employer]. Subjective Marycarmen Solomon is a 31 year [...] Candelaria Jessica PA-C documented in this encounter [facility] documented as of this encounter (statuses as of 02/13/2022) 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 documented as of this encounter (statuses as of 06/01/2022) [address]2015 History of Past illness Narrative* Problem Noted Date Resolved Date 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 documented as of this encounter (statuses as of 07/12/2022) [address]2015 History of Past illness Narrative* Problem Noted Date Resolved Date 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 documented as of this encounter (statuses as of 09/03/2022) [address]-2015 History of Past illness Narrative* Problem Noted Date Resolved Date 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 documented as of this encounter (statuses as of 12/06/2022) [address]15-2015 History of Past illness Narrative* Problem Noted Date Resolved Date 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 Diagnosis Bronchitis- Primary Bronchitis, not specified as acute or chronic documented 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 On stimulant medication RLS (restless legs syndrome) Restless legs syndrome (RLS) Vitamin D deficiency Unspecified vitamin D deficiency Iron deficiency Iron deficiency anemia, unspecified documented in this encounter [facility] note* Diagnosis Idiopathic hypersomnia with long sleep time documented in this encounter [facility] note* Diagnosis Routine medical exam- Primary Routine [...] of the cervix documented in this encounter [facility] note* Diagnosis RLS (restless legs syndrome)- Primary Restless legs syndrome (RLS) Idiopathic hypersomnia with long sleep time documented in this encounter [facility] note* Diagnosis RLS (restless legs syndrome)- Primary Restless legs syndrome (RLS) Idiopathic hypersomnia with long sleep time documented in this encounter [facility] note* Diagnosis 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 On stimulant medication documented in this encounter [facility] note* Diagnosis Strep pharyngitis- Primary Streptococcal sore throat documented in this encounter [facility] for referral (narrative)* Outpatient Procedure (Routine) - Pending Review Specialty Diagnoses / Procedures Referred By Curtis ponce [facility] Diagnoses On stimulant medication Procedures ECG COMPLETE ECG ROUTINE ECG W/LEAST 12 LDS W/I&R Kayley Weinstein Jr., MD [address] [id number] [facility] [place] [address] [place] [id number] Referral ID Status Reason Start Date Expiration Date Visits Requested Visits Authorized [id number] Pending Review Auto-Generat ed Referral 03/03/2023 03/02/2024 [address] [facility] Summary Purpose Family History No Family [...] or prosecute any alcohol or drug abuse patient.[facility] the event this information is protected by the Federal Confidentiality of Alcohol and Drug Abuse Patient Records regulations: The Federal rules restrict any use of the information to criminally investigate or prosecute any alcohol or drug abuse patient.[facility] the event this information is protected by the Federal Confidentiality of Alcohol and Drug Abuse Patient Records regulations: The Federal rules restrict any use of the information to criminally investigate or prosecute any alcohol or drug abuse patient.[facility] the event this information is protected by the Federal Confidentiality of Alcohol and Drug Abuse Patient Records regulations: The Federal rules restrict any use of the information to criminally investigate or prosecute any alcohol or drug abuse patient.[facility] the event this information is protected by the Federal Confidentiality of Alcohol and Drug Abuse Patient Records regulations: The Federal rules restrict any use of the information to criminally investigate or prosecute any alcohol or drug abuse patient.[facility] the event this information is protected by the Federal Confidentiality of Alcohol and Drug Abuse Patient Records regulations: The Federal rules restrict any use of the information to criminally investigate or prosecute any alcohol or drug abuse patient.[facility] the event this information is protected by the Federal Confidentiality of Alcohol and Drug Abuse Patient Records regulations: The Federal rules restrict any use of the information to criminally investigate or prosecute any alcohol or drug abuse patient.[facility] the event this information is protected by the Federal Confidentiality of Alcohol and Drug Abuse Patient Records regulations: The Federal rules restrict any use of the information to criminally investigate or prosecute any alcohol or drug abuse patient.[facility] the event this information is protected by the Federal Confidentiality of Alcohol and Drug Abuse Patient Records regulations: The Federal rules restrict any use of the information to criminally investigate or prosecute any alcohol or drug abuse patient.[facility] the event this information is protected by the Federal Confidentiality of Alcohol and Drug Abuse Patient Records regulations: The Federal rules restrict any use of the information to criminally investigate or prosecute any alcohol or drug abuse patient.[facility] the event this information is protected by the Federal Confidentiality of Alcohol and Drug Abuse Patient Records regulations: The Federal rules restrict any use of the information to criminally investigate or prosecute any alcohol or drug abuse patient.[facility] Reason for Visit (unrecogniz ed section [...] Care Teams (unrecognized sec tion and content) Light Technician Relationship Specialty Start Date End Date Alejandro Mc MD [address] [place] [address] PCP - General Internal Medicine 03/02/22 Light Technician Relationship Specialty Start Date End Date Alejandro Mc MD [address] [place] [id number] PCP - General Internal Medicine 07/12/22 Light Technician Relationship Specialty Start Date End Date Alejandro Mc MD [address] [place] [id number] PCP - General Internal Medicine 07/12/22 Light Technician Relationship Specialty Start Date End Date Alejandro Mc MD [address] [place] [id number] PCP - General Internal Medicine 07/12/22 Light Technician Relationship Specialty Start Date End Date Alejandro Mc MD [address] [place] [id number] PCP - General Internal Medicine 07/12/22 Light Technician Relationship Specialty Start Date End Date Alejandro Mc MD [address] [place] [id number] PCP - General Internal Medicine 07/12/22 Light Technician Relationship Specialty Start Date End Date Alejandro Mc MD [address] [place] [id number] PCP - General Internal Medicine 07/12/22 Hypersomnia [...] BE BASED ON THE PRIMARY CLINICAL RECORDS. [facility] [employer], [facility]. provides no warranty or guarantee of the accuracy or completeness of information in this document.
[2023-11-07 09:55] LABS: Absolute Lymphocyte Count 1.13 X10^3/uL (0.83-4.51); Basophil# 0.03 X10^3/uL; Basophil% 0.4 % (0-1); Eosinophil# 0.14 X10^3/uL; Eosinophils% 2.1 % (0-5); Hematocrit 37.4 % (37-47); Hemoglobin 12.3 g/dL (12.0-15.0); Lymphocyte # 1.13 X10^3/ul (0.83-4.51); Lymphocyte % 16.8 % (19-41); Mean Corp Hgb Conc 32.9 g/dL (32-36); Mean Corpuscular Hgb 28.9 pg (27.0-32.0); Monocyte# 0.41 X10^3/uL; Monocyte% 6.1 % (0-10); NRBC Flagged by Analyzer 0 % (0-5); Neutrophil % 74.5 % (47-70); Platelet Count 265 K/mm3 (150-450); RBC Distribution Width CV 11.9 % (11.6-14.6); RBC Distribution Width SD 38.2 fl (35.1-43.9); Red Blood Count 4.25 M/mm3 (4.2-5.4); White Blood Count 6.7 K/mm3 (4.4-11.0)
[2023-11-07 11:03] LABS: HIV - WCH Non-Reactive (Nonreactive); Hepatitis B Surface Antigen Non-Reactive (Nonreactive); Hepatitis C Antibody Non-Reactive (Nonreactive); Rubella IgG Reactive (Nonreactive); Syphilis Antibodies Non-reactive
== END | disposition home or self-care (01) ==
LOC: PAVLAB 09:22
PROVIDERS: PCP Clinical Nurse Specialist; Referring Provider Advanced Practice Midwife; Visit Provider Advanced Practice Midwife
DX: Z34.81 Encounter for supervision of other normal pregnancy, first trimester (principal)
CPT/HCPCS: 36415; 85025; 86703; 86762; 86780; 86803; 86850; 86900; 86901; 87340

== ENCOUNTER → 2024-03-07 | Outpatient (CLI) | payer OTHER, SELFPAY ==
[2024-03-07 13:29] LABS: Absolute Lymphocyte Count 1.37 X10^3/uL (0.83-4.51); Absolute Neutrophil Count 6.1 X10^3/uL (2.0-7.7); Basophil# 0.02 X10^3/uL; Basophil% 0.2 % (0-1); Eosinophil# 0.21 X10^3/uL; Eosinophils% 2.6 % (0-5); Hematocrit 29.2 % (37-47); Hemoglobin 9.5 g/dL (12.0-15.0); Lymphocyte # 1.37 X10^3/ul (0.83-4.51); Mean Corp Hgb Conc 32.5 g/dL (32-36); Mean Corpuscular Hgb 28.7 pg (27.0-32.0); Mean Corpuscular Volume 88.2 fL (81-99); Mean Platelet Vol. 9.6 fl (6.2-12.0); Monocyte# 0.35 X10^3/uL; Monocyte% 4.3 % (0-10); NRBC Flagged by Analyzer 0 % (0-5); Neutrophil % 75.7 % (47-70); Platelet Count 251 K/mm3 (150-450); RBC Distribution Width CV 11.8 % (11.6-14.6); RBC Distribution Width SD 37.5 fl (35.1-43.9); Red Blood Count 3.31 M/mm3 (4.2-5.4); White Blood Count 8.1 K/mm3 (4.4-11.0)
[2024-03-07 13:38] LABS: Glucose Challenge Gest 1H 50g 162 mg/dL (70-140)
[2024-03-07 14:13] LABS: HIV - WCH Non-Reactive (Nonreactive); Syphilis Antibodies Non-reactive
== END | disposition home or self-care (01) ==
LOC: PAVLAB 13:01
PROVIDERS: PCP Clinical Nurse Specialist; Referring Provider Obstetrics & Gynecology; Visit Provider Obstetrics & Gynecology
DX: O09.92 Supervision of high risk pregnancy, unspecified, second trimester (principal); Z13.1 Encounter for screening for diabetes mellitus; Z3A.00 Weeks of gestation of pregnancy not specified
CPT/HCPCS: 36415; 82950; 85025; 86703; 86780

== ENCOUNTER → 2024-03-12 | Outpatient (CLI) | payer OTHER, SELFPAY ==
[2024-03-12 10:23] LABS: Bedside Glucose 80 mg/dL (74-106)
[2024-03-12 11:01] LABS: Glucose GTT-30 minutes 122 mg/dL (110-170)
[2024-03-12 11:02] LABS: Glucose GTT- Fasting 90 mg/dL (74-106)
[2024-03-12 11:26] LABS: Glucose GTT- 1 Hour 135 mg/dL (120-170)
[2024-03-12 12:46] LABS: Glucose GTT- 2 Hour 112 mg/dL (70-120)
[2024-03-12 13:59] LABS: Glucose GTT- 3 Hour 77 mg/dL (74-106)
== END | disposition home or self-care (01) ==
LOC: LAB 09:46
PROVIDERS: PCP Clinical Nurse Specialist; Referring Provider Advanced Practice Midwife; Visit Provider Advanced Practice Midwife
DX: O99.810 Abnormal glucose complicating pregnancy (principal); Z3A.00 Weeks of gestation of pregnancy not specified
CPT/HCPCS: 36415; 82951; 82952; 82962

== ENCOUNTER → 2024-04-11 | Outpatient (CLI) | payer OTHER, SELFPAY ==
[2024-04-11 10:50] LABS: Absolute Lymphocyte Count 1.31 X10^3/uL (0.83-4.51); Absolute Neutrophil Count 5.6 X10^3/uL (2.0-7.7); Basophil# 0.02 X10^3/uL; Basophil% 0.3 % (0-1); Eosinophil# 0.19 X10^3/uL; Eosinophils% 2.4 % (0-5); Hematocrit 32.7 % (37-47); Hemoglobin 10.5 g/dL (12.0-15.0); Lymphocyte # 1.31 X10^3/ul (0.83-4.51); Lymphocyte % 16.8 % (19-41); Mean Corp Hgb Conc 32.1 g/dL (32-36); Mean Corpuscular Hgb 28.2 pg (27.0-32.0); Mean Corpuscular Volume 87.9 fL (81-99); Mean Platelet Vol. 9.6 fl (6.2-12.0); Monocyte# 0.58 X10^3/uL; Monocyte% 7.4 % (0-10); NRBC Flagged by Analyzer 0 % (0-5); Neutrophil # 5.64 X10^3/uL (2.7-7.7); Neutrophil % 72.5 % (47-70); Platelet Count 224 K/mm3 (150-450); RBC Distribution Width SD 41.2 fl (35.1-43.9); Red Blood Count 3.72 M/mm3 (4.2-5.4); White Blood Count 7.8 K/mm3 (4.4-11.0)
== END | disposition home or self-care (01) ==
LOC: PAVLAB 10:35
PROVIDERS: PCP Clinical Nurse Specialist; Referring Provider Advanced Practice Midwife; Visit Provider Advanced Practice Midwife
DX: O99.019 Anemia complicating pregnancy, unspecified trimester (principal); Z3A.00 Weeks of gestation of pregnancy not specified
CPT/HCPCS: 36415; 85025

== ENCOUNTER → 2024-05-09 | Outpatient (CLI) | payer OTHER, SELFPAY | END | disposition home or self-care (01) | LOC: LABSPEC 17:10 | PROVIDERS: PCP Clinical Nurse Specialist; Referring Provider Obstetrics & Gynecology; Visit Provider Obstetrics & Gynecology | DX: O09.92 Supervision of high risk pregnancy, unspecified, second trimester (principal); Z3A.00 Weeks of gestation of pregnancy not specified | CPT/HCPCS: 87077; 87081; 87186 ==

== ENCOUNTER → 2024-05-17 | Outpatient (CLI) | payer OTHER, SELFPAY ==
--- NOTE | 2024-05-17 16:20 | US_ITS ---
STUDY: SECOND AND THIRD TRIMESTER OBSTETRICAL ULTRASOUND - LIMITED REASON FOR EXAM: Female, 33 years old growth LMP: Unknown. PRIOR ULTRASOUND: None. TECHNIQUE: Transabdominal TECHNICAL QUALITY: Adequate. FINDINGS: There is a single intrauterine fetus. The fetus is in a cephalic presentation. There is demonstrated cardiac activity with a heart rate of 140 bpm. There is a normal amniotic fluid volume. The largest amniotic fluid pocket measures 7.2 cm. The amniotic fluid index (NAKUL) is 14.6 cm. The placenta is anterior in location and is not low lying. There are Grade 2 placental changes. The cervical length is not seen. BIOMETRY: BPD: 9.4: 38 weeks, 0 days HC: 12.7: Beyond range AC: 38.7: Beyond range FL: 7.6: 39 weeks, 0 days Age by LMP: 38 weeks, 0 days. EPI by LMP: 05/31/2024. age by prior US: weeks, days. EPI by prior US: . age by current US: 39 weeks, 4 days. EPI by current US: 05/20/2024. Estimated weight: 4296 grams, +/- 624 grams, 99 percentile. Gender: US/OB Limited With Biometrics IMPRESSION: Single live fetus in a vertex presentation. survey not performed on this exam. Placenta is grade 2 and is not low-lying. Cervix is closed. age by current US: 39 weeks, 4 days. EPI by current US: 05/20/2024. Estimated weight: 4296 grams, +/- 624 grams, 99 percentile. Electronically Signed: Dominick Yen MD at 17:22 EDT ,
== END | disposition home or self-care (01) ==
LOC: US 16:19
PROVIDERS: PCP Clinical Nurse Specialist; Referring Provider Obstetrics & Gynecology; Visit Provider Obstetrics & Gynecology
DX: O36.60X0 Maternal care for excessive fetal growth, unspecified trimester, not applicable or unspecified (principal); Z3A.00 Weeks of gestation of pregnancy not specified
CPT/HCPCS: 76816

== ENCOUNTER 2024-05-25 05:37 | Inpatient (IN) | payer OTHER, SELFPAY ==
[2024-05-25] VITALS (20 sets, daily range): BP systolic 74–123; BP diastolic 61–88; PULSE 64–106; RESP 13–19; TEMP 35.6–36.8; O2SAT 97–100; BMI 33.6
--- NOTE | 2024-05-25 | FALS_PTH ---
PATIENT: ABHINAV ASIF LOC: [facility] U#:[id number] AGE/SX: 33/F [facility]: Dr. Sarai Dorsey DO : 1990 BED: 1 DIS: 05/27/2024 SPEC #: [id number] RECD: 05/25/24 10:04 STATUS: ANKITA TRACE #: [id number] NAYELI: 05/25/24 00:[address]: Sarai Dorsey DEPT: SURGICAL PATHOLOGY RECD BY: Miah Espinoza ENTERED: 05/25/24 10:04 SP TYPE: FALL TUBES OTHR DR: Kathrin Alonzo, CHARGE ENTRY-Archana Tissues: Fallopian tube Procedures: Surgery Specimen Level II HEADER OPERATION: Tubal ligation PRE-OP DIAGNOSIS: Primary section TISSUE SUBMITTED: Fallopian tube MICROSCOPIC DIAGNOSIS Bilateral fallopian tubes, salpingectomy: Bilateral fallopian tubes, no pathologic diagnosis. SJ: 05/28/2024 MICROSCOPIC DESCRIPTION Slides are reviewed. GROSS DESCRIPTION Received in fixative is one container labeled with the patient's name and designated bilateral fallopian tubes- tie on right. The specimen consists of bilateral fallopian tubes including fimbrial ends. Right fallopian tube measures 7.0cm in length and 0.5cm in diameter and left fallopian tube measures 7.5 cm in length and 0.6 cm in diameter. Sections reveal unremarkable cut surfaces. Reshipping Clerk sections are submitted in two cassettes: 1- right fallopian tube, 2- left fallopian tube. / JOSE MANUEL: 05/28/2024 TC:4 CPT: 42451 x2
[2024-05-25] MEDS: Lactated Ringers 1,000 ML 999 ML IV (05:45)
--- NOTE | 2024-05-25 05:55 | HP.PCM.OB_ITS ---
HPI - General General Date of Admission: 05/25/24 HPI Narrative ABHINAV ASIF, is a 33 Fy/o @ 39 weeks who presents to L&D for a primary section for suspected LGA. recent ultrasound showed 4296 grams, +/- 624 grams, 99 percentile for growth. She has a history of delivering an 8 lb 11 oz baby that was a vacuum and she wants to avoid another traumatic with a vacuum. She has requested a section Maternal Data Information EPI Calculator Estimated Delivery Date Method Current WG Current Estimate 05/31/24 LMP (Certain) 39w 1d PFSH PFS Medical History (Updated 05/25/24 @ 05:43 by Naomi Nance) macrosomia Asthma Seasonal allergies Well woman exam Contraception management False labor Home Medications ?Medication ?Instructions ?Recorded ?Last Taken ?Type PNV 153-FA 400 mcg-om3 35 mg-dha tab PO see provider 10/14/23 05/24/24 08:41 History 25 mg-epa 5 mg-fish oil chew tablet blood sugar diagnostic (Blood #50 ea 04/06/24 Unknown Rx Glucose Test strips) blood-glucose meter (Blood Glucose #1 ea 04/06/24 Unknown Rx Monitoring kit) lancets (Accu-Chek Softclix #100 ea 04/06/24 Unknown Rx Lancets) Allergy/AdvReac Type Severity Reaction Status Date / Time Sulfa (Sulfonamide Allergy Hives Verified 05/25/24 05:41 Antibiotics) Family History Mother Knaff-Ienmjfpjj-Xtsot (WPW) syndrome Surgical History [place] teeth extracted Social History adopted: No household members: children number of children: 1 current occupational status: employed current occupation: [employer] A[employer] current occupational exposures/hazards: No pets and animals: Yes pets and animals: dog(s) history of recent travel: No sexually active: Yes Smoking Status: Never smoker alcohol intake: current alcohol intake frequency: holidays/special occasions only details: NOT WHILE substance use type: does not use well-balanced diet: daily or most days caffeine: Yes Type: coffee Number of servings: 1 eating out: 1-3 times/week during the past year weight has: increased > 10 lbs what type of physical activity do you participate in: none michele/tenriism: None seatbelt use: always do you feel safe at home: Yes additional social history: DEE- CAMERON History 2 Elective abortions Hx Para 1 Spontaneous abortions Hx # Term Pregnancies Ectopic pregnancies Hx # Pregnancies Multiple births # of living children 1 Past Pregnancies Del. Date Name GA/Weeks Outcome Route Bth Weight Infant Gen Labor Lgth Anesthesia Del Locatn Provider FOB 12/18/18 Mohamud 40 live - full term vacuum 8#11oz Male epid ural [facility] Fe Ferrer Thompson Visit Details Expected Delivery Route/Plan Labor Preferences- CB/BF classes: no labor support person: Cameron labor intervention preferences: [] pain management options preferred: epidural cut cord/dad catch: yes : yes PP control planned: discussed discussed possible routes of delivery and associated risks: [] special requests: [] Plans Covid status: [] Flu vaccine: [] Tdap vaccine: given 03/19/24 Rhogam: NA LARC form signed: yes Problem list reviewed and updated with the most current plan of care details and appropriate orders placed. Relevant counseling for the gestational age provided. Continue routine care and follow up unless otherwise noted in visit notes/problem list details OB Flowsheet Initial Weight: 185 lb Date -?-?-?-?-?-?-?-?-?-?-?-?- EGA Weight BP Urine Prot -?-?-?-?-?-?-?-?-?-?-?-?- Glucose FHR FuHt Pres Dilation -?-?-?-?-?-?-?-?-?-?-?-?- Effaced St Visit Note 10/20/23 -?-?-?-?-?-?-?-?-?-?-?-?- 8w 0d 185 lb 6 oz (+6 oz) 125/82 -?-?-?-?-?-?-?-?-?-?-?-?- 160 -?-?-?-?-?-?-?-?-?-?-?-?- KW-CRL cons with dates. small CASSY noted on US. NIPT desired. 11/14/23 -?-?-?-?-?-?-?-?-?-?-?-?- 11w 4d 186 lb 8 oz (+1 lb 8 oz) 112/67 Negative -?-?-?-?-?-?-?-?-?-?-?-?- Negative 160 -?-?-?-?-?-?-?-?-?-?-?-?- LC- no vb/crampi ng. declines afp. mfm anatomy ordered. low risk nipt 12/15/23 -?-?-?-?-?-?-?-?-?-?-?-?- 16w 0d 191 lb 2 oz (+6 lb 2 oz) 126/71 Negative -?-?-?-?-?-?-?-?-?-?-?-?- Negative 153 -?-?-?-?-?-?-?-?-?-?-?-?- MH-No VB, crampi ng. Nausea improved. Denies concerns 01/11/24 -?-?-?-?-?-?-?-?-?-?-?-?- 19w 6d 192 lb 8 oz (+7 lb 8 oz) 113/72 Negative -?-?-?-?-?-?-?-?--?-?-?-?- Negative 149 -?-?-?-?-?-?-?-?-?-?-?-?- JV- no cramping or bleeding. anatomy scan was normal but read follow up in 4 weeks. asking for reason other than ama. 02/09/24 -?-?-?-?-?-?-?-?-?-?-?-?- 24w 0d 197 lb (+12 lb) 112/75 Negative -?-?-?-?-?-?-?-?-?-?-?-?- Negative 145 -?-?-?-?-?-?-?-?-?-?-?-?- SM- no vb lof cr maping 03/07/24 -?-?-?-?-?-?-?-?-?-?-?-?- 27w 6d 204 lb (+19 lb) 116/72 Negative -?-?-?-?-?-?-?-?-?-?-?-?- Negative 140 29 -?-?-?-?-?-?-?-?-?-?-?-?- KW- no vb/lof/ct x. good fm. KW- no vb/lof/ctx. good fm. needs 3 hour gct and po iron. 03/19/24 -?-?-?-?-?-?-?-?-?-?-?-?- 29w 4d 203 lb 6 oz (+18 lb 6 oz) 118/68 Negative -?-?-?-?-?-?-?-?-?-?-?-?- Negative 144 30 -?-?-?-?-?-?-?-?-?-?-?-?- MH-No VB, LOF. G ood FM. Noting menstrual type cramps today. Low abdomen. Uterus soft to palpation. States unable to time. Will go home, lay down, force fluids and call if able to time CTX 4 or more in hour. 04/06/24 -?-?-?-?-?-?-?-?-?-?-?-?- 32w 1d 207 lb 4 oz (+22 lb 4 oz) 116/78 Negative -?-?-?-?-?-?-?-?-?-?-?-?- Negative 145 34 -?-?-?-?-?-?-?-?-?-?-?-?- JV- AC measuring 98th%, NAKUL 21. pt had an abnormal 1 hr but passed her 3 hr back in February. Will order glucometer to record some levels in meantime. pt will report back to me in a week over the portal. 04/20/24 -?-?-?-?-?-?-?-?-?-?-?-?- 34w 1d 208 lb (+23 lb) 120/79 Negative -?-?-?-?-?-?-?-?-?-?-?-?- Negative 140 36 [place] -?-?-?-?-?-?-?-?-?-?-?-?- SM- no vb lof go od fm hank luna ctx 05/02/24 -?-?-?-?-?-?-?-?-?-?-?-?- 35w 6d 211 lb (+26 lb) 120/74 Negative -?-?-?-?-?-?-?-?-?-?-?-?- Negative 148 38 Cephalic -?-?-?-?-?-?-?-?-?-?-?-?- JV- had another growth last week that was not faxed over. asking mfm for results. EFW 3354 91%, AC >99th, Nakul 20. JV- had another growth last week that was not faxed over. asking mfm for results. EFW 3354 91%, AC >99th, Nakul 20. at 39 weeks baby EFW is 4995 (9 lbs 0.3oz) last baby ws 8 lbs 11 oz and was a vacuum due to pushing for over 2 hours. she wants a primary section at 39 weeks if does not go into labor before 39 weeks. 05/09/24 -?-?-?-?-?-?-?-?-?-?-?-?- 36w 6d 215 lb 2 oz (+30 lb 2 oz) 126/78 Negative -?-?-?-?-?-?-?-?-?-?-?-?- Negative 143 39 Cephalic 0 -?-?-?-?-?-?-?-?-?-?-?-?- JV- no lof, vag inal bleeding, or cramping. gbs collected. pt wants to go ahead and schedule a primary section (see above) at 39 weeks. 05/16/24 -?-?-?-?-?-?-?-?-?-?-?-?- 37w 6d 215 lb 2 oz (+30 lb 2 oz) 117/73 Negative -?-?-?-?-?-?-?-?-?-?-?-?- Negative 124 40 Cephalic 1 .5 -?-?-?-?-?-?-?-?-?-?-?-?- 70 -2 JV- pt is evelyn,cx dilated. based on our estimate baby is between 8.5-9lbs currently. will get official growth scan with hospital tomorrow incase she goes into labor soon and wants to request section to be earlier. otherwise has section scheduled for 39 weeks for LGA. 05/24/24 -?-?-?-?-?-?-?-?-?-?-?-?- 39w 0d 213 lb 8 oz (+28 lb 8 oz) 127/82 Negative -?-?-?-?-?-?-?-?-?-?-?-?- Negative 138 40 Cephalic -?-?-?-?-?-?-?-?-?-?-?-?- JV- pre-op exam today. no lof, vaginal bleeding, or dec fm. wants tubal at same time also. this was added to the consent. ROS Constitutional Constitutional: Denies change in weight, fatigue, fever(s), headache(s), poor appetite or weakness Eyes Eyes: Denies blurry vision, change in vision, seeing flashes or spots in vision ENT HEENT: Denies dizziness, headache(s), loss taste/smell or sore throat Cardiovascular Cardiovascular: Denies chest pain, dizziness, dyspnea, irregular heart rhythm, leg edema, palpitations, rapid heart rate or vomiting Respiratory/Chest Respiratory/Chest: Denies chest tightness, cough, dyspnea or breast pain Gastrointestinal Gastrointestinal: Denies abdominal pain, anorexia, constipation, cramping, diarrhea, hemorrhoids, vomiting or weight changes Genitourinary Genitourinary: Denies dysuria, flank pain, genital lesions, genital pain, urinary frequency or urinary urgency Musculoskeletal Musculoskeletal: Denies back pain, difficulty walking, joint pain, limited range of motion, muscle cramps or numbness Integumentary Integumentary: Denies lesions or unusual bruising Neurologic Neurologic: Denies abnormal movements, abnormal speech, dizziness, numbness, seizure-like activity or syncope Psychiatric Psychiatric: Denies anxiety, behavioral changes, change in appetite, change in libido, cognitive impairment, confusion, depression, difficulty concentrating, hallucinations or suicidal thoughts Endocrine Endocrinology: Denies excessive sweating, polydipsia or polyuria Hematologic/Lymphatic Hematologic/Lymphatic: Denies easy bleeding, easy bruising or lymphadenopathy Allergic/Immunologic Allergic/Immunologic: Denies itchy eyes, lip swelling, seasonal rhinorrhea, rhinitis, throat swelling, tongue swelling, eczemia, wheezing or asthma Vital Signs Vital Signs Vital Signs: Weight Weight: 214 lb 15.211 oz Body Mass Index (BMI) 33.6 Physical Exam Const alert, oriented x3, no apparent distress and healthy appearing General Appearance: cooperative; Negative for anxious HEENT normocephalic Face and Sinus: normal facial exam Eyes EOMs intact bilaterally and no scleral icterus General Eye: normal appearance of both eyes Neck full ROM and supple Lymph Lymphatic: no lymphadenopathy noted Chest Chest: abnormal inspection of the chest Resp normal respiratory effort Effort and Inspection: able to speak in complete sentences Cardio regular rate GI soft to palpation and non-tender Inspection: gravid Palpation: soft; Negative for tender external exam normal Amniotic Fluid: ROM+plus Back/Spine no CVA tenderness Extremity normal to inspection, full ROM and no clubbing, cyanosis or edema General Extremity: Negative for calf tenderness or edema Skin Lesions: no lesions Rashes: no rashes Psych mental status grossly normal Labs Labs Labs: Blood Type A POSITIVE Antibody Screen NEGATIVE Hct 32.7 % (37-47) L Hgb 10.5 g/dL (12.0-15.0) L Obstetrics Ultrasound Syphilis Total Ab Non-reactive Rubella IgG Antibody Reactive (Nonreactive) Hep Bs Antigen Non-Reactive (Nonreactive) Hepatitis C Antibody Non-Reactive (Nonreactive) Hepatitis C Ab (EIA) <0.1 s/co ratio (0.0-0.9) Chlamydia DNA (KYRA) Negative (Negative) N.gonorrhoeae DNA (KRYA) Negative (Negative) HIV 1&2 Antibody Non-Reactive (Nonreactive) Glucose 1 Hr 50 gm 162 mg/dL (70-140) H Rhogam given: No Assessment & Plan (1) Positive GBS test: (2) LGA (large for gestational age) fetus affecting management of mother: COMMENT: EFW at delivery is 9 lbs 5 oz. last baby was 8 lbs 11 oz and was a vacuum for pushing for 2 hours. she is requesting primary section at 39 weeks if no labor. discussed risks vs benefits. ac is >99th% at 35 weeks. (3) Abnormal glucose affecting : COMMENT: 3 hour normal. collecting glucose log at home due to AC>98 and NAKUL 21 at 32 week scan. rpt scan at 36 weeks (4) Anemia affecting : QUALIFIERS: Trimester: second trimester Qualified Code(s): O99.012 - Anemia complicating , second trimester COMMENT: PO iron, repeat at 32 weeks (5) AMA (advanced maternal age) multigravida 35+: QUALIFIERS: Trimester: second trimester Qualified Code(s): O09.522 - Supervision of elderly multigravida, second trimester COMMENT: recommend 36 week growth US delivery by 39-40 (6) Supervision of high-risk : QUALIFIERS: Trimester: second trimester Qualified Code(s): O09.92 - Supervision of high risk , unspecified, second trimester COMMENT: PRR, , EPI 05/31/24, boy PC Mohamud, BF Cameron (7) : QUALIFIERS: Weeks of gestation: 39 weeks Qualified Code(s): Z3A .39 - 39 weeks gestation of COMMENT: discussed genetic & carrier testing. low risk NIPT. Declines AFP. NL anatomy US
[2024-05-25] MEDS: Acetaminophen 500 MG Tablet 1000 MG PO ×3 (05:56→17:40)
[2024-05-25 05:57] LABS: Absolute Lymphocyte Count 1.66 X10^3/uL (0.83-4.51); Absolute Neutrophil Count 4.6 X10^3/uL (2.0-7.7); Basophil# 0.02 X10^3/uL; Basophil% 0.3 % (0-1); Eosinophil# 0.18 X10^3/uL; Eosinophils% 2.7 % (0-5); Hematocrit 31.4 % (37-47); Hemoglobin 10.3 g/dL (12.0-15.0); Lymphocyte # 1.66 X10^3/ul (0.83-4.51); Lymphocyte % 24.5 % (19-41); Mean Corp Hgb Conc 32.8 g/dL (32-36); Mean Corpuscular Hgb 27.9 pg (27.0-32.0); Mean Corpuscular Volume 85.1 fL (81-99); Mean Platelet Vol. 10.7 fl (6.2-12.0); Monocyte# 0.24 X10^3/uL; Monocyte% 3.5 % (0-10); NRBC Flagged by Analyzer 0 % (0-5); Neutrophil # 4.64 X10^3/uL (2.7-7.7); Neutrophil % 68.6 % (47-70); Platelet Count 232 K/mm3 (150-450); RBC Distribution Width CV 12.6 % (11.6-14.6); RBC Distribution Width SD 38.5 fl (35.1-43.9); Red Blood Count 3.69 M/mm3 (4.2-5.4); White Blood Count 6.8 K/mm3 (4.4-11.0)
--- NOTE | 2024-05-25 05:57 | NURSING ---
Blanquita gave verbal order while on unit for this RN to obtain admission blood sugar.
--- NOTE | 2024-05-25 06:00 | NURSING ---
dr lovelace updated on pt blood sugar upon admission as 141. pt had ensure drink prior to coming in. JV states that is okay as she had the ensure. no further action to be taken at this time. cupola charger insulation aware.
[2024-05-25 06:33] LABS: Bedside Glucose 141 mg/dL (74-106)
[2024-05-25] MEDS: Lactated Ringers 1,000 ML 150 ML IV (06:43)
[2024-05-25] MEDS: Sodium Citrate/Citric Acid 30 ML UDC PO (06:44)
[2024-05-25] MEDS: Cefazolin 2 GM in 0.9% Normal Saline (100mL Bag) 100 ML IV (07:20)
--- NOTE | 2024-05-25 07:28 | DCINST_ITS ---
Discharge Instructions Diet Discharge Diet: No restrictions Activity Discharge Activity: May Not Drive (for 2 weeks or while taking narcotic pain medications.), May Shower and May Take a Tub Bath (in 7 days.) May resume sexual activity in: 4-6 weeks Weight Bearing Status: Full weight bearing Lifting Restrictions: 20 pounds Dressing / Incision Call your doctor if your incision/area has: Continuous Slow Oozing, Sudden Increased Bleeding, Increased Pain/ Swelling, Increased Redness and Foul Smelling Discharge Call your doctor if you observe: Fever of 101 or Higher and Using more than 1 pad per hour Suture Line Care: Avoid Pulling/Pushing and Avoid Pinching/Bending Cleanse incision/area with: Soap & Water and Keep Dressing Clean & Dry Follow Up Care Please Follow Up With: Sarai Dorsey DO When: Call [phone] to make an appointment for an incision check in 1-2 weeks. Test Results: Test results from this visit will be discussed in further detail at your follow- up appointment, if applicable. Discharge Plan Admission Admit Date/Time: 05/25/24 05:25 Primary Reason for Your Visit: section Attending Provider: Sarai Dorsey Primary Care Provider: Kathrin Alonzo NP Discharge Orders/Prescriptions Prescriptions: New ibuprofen 800 mg tablet 800 mg PO Q8H PRN (Reason: pain) Qty: 30 0RF oxycodone-acetaminophen [Percocet] 5-325 mg tablet 1 tab PO Q4H PRN (Reason: pain) 7 Days Qty: 15 0RF Rx Instructions: 1-2 tabs q 4 hrs as needed for pain Continued PNV [id number] 400 mcg-35 mg- 25 mg-5 mg tablet,chewable PO No Action (DME) blood-glucose meter [Blood Glucose Monitoring] Kit See Rx Instructions .Route Qty: 1 0RF Rx Instructions: Check at fasting and then 2 hours post meals, breakfast, lunch and dinner (DME) Blood Glucose Test Strip See Rx Instructions .Route Qty: 50 4RF Rx Instructions: Check at fasting and 2 hours post meals, breakfast, lunch and dinner (DME) lancets [Accu-Chek Softclix Lancets] Misc See Rx Instructions .Route Qty: 100 2RF Rx Instructions: check at fasting and 2 hours post breakfast, lunch and dinner Referrals / Follow Up: Kathrin Alonzo [employer]AGE [employer]LECTRICIAN HELPER, [employer]LECT[employer]ICIAN HELPER-[employer] [Primary Care Provider] -
[2024-05-25] MEDS: Oxytocin 15 Units/NS 250ml 15 UNITS/250 ML IV.SOLN 83 UNITS IV (08:30)
--- NOTE | 2024-05-25 08:39 | OP.PCM_ITS ---
Assessment & Plan (1) Positive GBS test: (2) LGA (large for gestational age) fetus affecting management of mother: COMMENT: EFW at delivery is 9 lbs 5 oz. last baby was 8 lbs 11 oz and was a vacuum for pushing for 2 hours. she is requesting primary section at 39 weeks if no labor. discussed risks vs benefits. ac is >99th% at 35 weeks. (3) Abnormal glucose affecting : COMMENT: 3 hour normal. collecting glucose log at home due to AC>98 and NAKUL 21 at 32 week scan. rpt scan at 36 weeks (4) Anemia affecting : QUALIFIERS: Trimester: second trimester Qualified Code(s): O99.012 - Anemia complicating , second trimester COMMENT: PO iron, repeat at 32 weeks (5) AMA (advanced maternal age) multigravida 35+: QUALIFIERS: Trimester: second trimester Qualified Code(s): O09.522 - Supervision of elderly multigravida, second trimester COMMENT: recommend 36 week growth US delivery by 39-40 (6) Supervision of high-risk : QUALIFIERS: Trimester: second trimester Qualified Code(s): O09.92 - Supervision of high risk , unspecified, second trimester COMMENT: PRR, , EPI 05/31/24, boy SHELDON Benitez (7) : QUALIFIERS: Weeks of gestation: 39 weeks Qualified Code(s): Z3A.39 - 39 weeks gestation of COMMENT: discussed genetic & carrier testing. low risk NIPT. Declines AFP. NL anatomy US Maternal Data Information EPI Calculator Estimated Delivery Date Method Current WG Current Estimate 05/31/24 LMP (Certain) 39w 1d Details Operative Information Date of Procedure: 05/25/24 Pre-Operative Diagnosis: @ 39 weeks, Suspected LGA, desires permanent sterilization Post-Operative Diagnosis: @ 39 weeks, Suspected LGA, desires permanent sterilization Indications Narrative: patient has history of 8 lb 11 oz baby that was a vacuum delivery and patient would like to avoid another traumatic experience. She also desires permanent sterilization Classification: Scheduled Procedure Type: low transverse rn hemo dialysis #1: Cayla Cassidy Type of Anesthesia: Spinal Antibiotic Given: Ancef 2 grams IV x1 Estimated Blood Loss: 800cc Procedure Start Time: 07:39 Time of Delivery: 07:44 Findings Description of Procedure: Procedure: The patient was brought to the operating room where spinal anesthesia was found to be adequate. She was prepped and draped in the normal sterile fashion and was placed in a dorsal supine position with a leftward tilt. Pfannenstiel skin incision was made with a scalpel and carried through to the underlying layers. The fascia was nicked in the midline and extended laterally using Melchor scissors. The anterior aspect of the fascia was grasped with Melchor clamps and the underlying rectus muscles dissected off using the Metzenbaum scissors. The inferior aspect the fascia was also grasped with Melchor clamps and the underlying rectus muscle dissected off with the Metzenbaum scissors. The rectus muscles were in the midline. Peritoneum was entered sharply. The uterus was identified and a bladder blade was inserted into the abdomen. Bladder flap was created off the uterus using Metzenbaum scissors. A transverse incision was made with a scalpel and extended laterally manually. The infant's head was grasped with the help of my cataloging assistant and fundal pressure the was delivered through the uterine incision without difficulty. The mouth and nares were bulb suctioned. After a 30 second delay the cord was clamped and cut. The infant was handed off to the awaiting teacher of family and consumer science for routine assessment. Placenta was delivered manually without difficulty. The uterus was exteriorized and cleared of all clots and debris. Incision was closed with an 0 Vicryl suture in a running locked fashion. Second layer of 1-0 monocryl suture was used in imbricating manner to create excellent closure and hemostasis. The right tube was grasped with a [place] clamp and the underlying mesosalpinx was cauterized and cut with the ligasure device removing the entire tube and fimbriated end. The same procedure was performed on the opposite side. Both fallopian tubes were passed off for pathology analysis. The uterus was returned to the abdomen. The gutters were cleared of all clots and debris. The peritoneum was closed in a pursestring pattern using a 3-0 Vicryl suture. This muscle was reapproximated with a 3-0 Vicryl. The fascia was closed with an 0 PDS suture. Subcutaneous tissue layer was closed using a plain gut suture. The skin was closed with a 4-0 Monocryl subcuticular stitch. The skin was also sealed with surgical glue. The patient tolerated the procedure well sponge lap and needle counts were correct at each tissue closure plane and the patient is now being brought to the recovery room in stable condition baby boy Eduardo 9 lbs 12.3 oz Presentation: Positive for Vertex Amniotic Membrane Rupture Type: Artificial Amniotic Fluid Description: Clear Placental Delivery Description: Manual Removal Placenta Disposition: [facility] Cord Vessel Description: 3 Vessels Cord Entanglement: Around neck x 1, loose Nuchal Cord Compression: With compression Infant A Gender: Male (1 minute): 8 (5 minute): 9 Delayed Cord Clamping: Yes Complications Risks of Surgery Discussed w/Patient: Bleeding, Anesthesia Risks, Infection, Need for Future C-Sections, Permanency, Failure Rate of 1 to 2%, Injury to surrounding structure(s) including bowel and bladder and Availability of other non-permanent control options Multi Select Codes Urinary/Genital Urinary/Genital CPT Codes: 26090 Delivery global pkg and Other Procedure See Report
[2024-05-25] MEDS: Ketorolac 30 MG/ML Syringe IV ×3 (08:52→20:06)
[2024-05-25 10:32] LABS: Syphilis Antibodies Non-reactive
[2024-05-25] MEDS: Senna/Docusate Sodium 1 Tablet PO (12:29)
[2024-05-25] MEDS: 0.9% Saline Lock 10 ML Syringe IV (20:06)
[2024-05-26] VITALS: BP 121/65; PULSE 86; RESP 16; TEMP 36.9; O2SAT 98
[2024-05-26] MEDS: Acetaminophen 500 MG Tablet 1000 MG PO ×4 (00:13→18:09)
[2024-05-26] MEDS: 0.9% Saline Lock 10 ML Syringe IV (02:26)
[2024-05-26] MEDS: Ketorolac 30 MG/ML Syringe IV (02:26)
[2024-05-26 04:00] VITALS: BP 110/71; PULSE 83; RESP 16; TEMP 36.8; O2SAT 98
[2024-05-26 05:10] LABS: Mean Corpuscular Hgb 27.9 pg (27.0-32.0); Mean Corpuscular Volume 87.1 fL (81-99); Mean Platelet Vol. 10.3 fl (6.2-12.0); Platelet Count 189 K/mm3 (150-450); RBC Distribution Width SD 41.1 fl (35.1-43.9); Red Blood Count 2.87 M/mm3 (4.2-5.4); White Blood Count 10.4 K/mm3 (4.4-11.0)
[2024-05-26 08:00] VITALS: BP 126/65; PULSE 85; RESP 16; TEMP 36.2; O2SAT 99
[2024-05-26] MEDS: Ibuprofen 600 MG Tablet PO ×3 (08:04→20:54)
[2024-05-26] MEDS: Senna/Docusate Sodium 1 Tablet PO (08:04)
--- NOTE | 2024-05-26 08:16 | PCM.PN.OB ---
Subjective Subjective Patient doing well without complaints. Tolerating PO. Ambulating and voiding without difficulty. feeding well. Denies chest pain, shortness of breath, calf pain/swelling, fevers, chills, lightheadedness. Objective Data Objective Data Vital Signs: Vital Signs Temp Pulse Resp BP Pulse Ox O2 Del Method 97.2 F L 85 16 126/65 H 99 Room Air 05/26/24 08:00 05/26/24 08:00 05/26/24 08:00 05/26/24 08:00 05/26/24 08:00 05/26/24 08:00 Oxygen Delivery Method Room Air Weight: 214 lb 15.211 oz Body Mass Index (BMI) 33.6 Intake & Output: Intake and Output for Last 24 Hours 05/24/24 05/25/24 05/26/24 23:59 23:59 23:59 Intake Total 2360 / 2360 Output Total 3100 / 3100 Balance -740 / -740 Lab / Micro Data 05/26/24 05:00 Labs: Laboratory Results - last 24 hr 05/25/24 05:45: Syphilis Total Ab Non-reactive 05/26/24 05:00: WBC 10.4, RBC 2.87 L, Hgb 8.0 L, Hct 25.0 L, MCV 87.1, MCH 27.9, MCHC 32.0, RDW Std Deviation 41.1, RDW Coeff of [place] 13.0, Plt Count 189, MPV 10.3 ROS Constitutional Constitutional: Reports systems reviewed and no addt'l complaints, except as documented Cardiovascular Cardiovascular: Reports systems reviewed and no addt'l complaints, except as documented Respiratory/Chest Respiratory/Chest: Reports systems reviewed and no addt'l complaints, except as documented Gastrointestinal Gastrointestinal: Reports systems reviewed and no addt'l complaints, except as documented Physical Exam Const alert, oriented x3 and no apparent distress HEENT Head and Scalp: atraumatic Resp normal respiratory effort GI soft to palpation and non-tender Inspection: incision intact, healing well and drainage (none) Bimanual Exam - Vag & Uterus: uterus non-tender Uterus Palpation: uterus fundus firm (below Umbilicus) Assessment & Plan (1) Status post section: PLAN: Plan s/p LTCS PPD # 2 1. routine post care 2. breast feeding- support given 3. rh positive 4. rubella immune
[2024-05-26 14:36] VITALS: BP 117/71; PULSE 88; RESP 16; TEMP 36.3; O2SAT 99
[2024-05-26] MEDS: SimETHICONE 80 MG Chewable Tablet PO (14:43)
[2024-05-26 20:56] VITALS: BP 139/74; PULSE 86; RESP 16; TEMP 36.2; O2SAT 98
[2024-05-27] MEDS: Acetaminophen 500 MG Tablet 1000 MG PO ×2 (00:27→06:49)
[2024-05-27 02:45] VITALS: BP 118/67; PULSE 98; RESP 16; TEMP 36.7; O2SAT 97
[2024-05-27] MEDS: Ibuprofen 600 MG Tablet PO ×2 (03:06→08:39)
--- NOTE | 2024-05-27 07:33 | PCM.PN.OB ---
Subjective Subjective Patient doing well without complaints. Tolerating PO. Ambulating and voiding without difficulty. feeding well. Denies chest pain, shortness of breath, calf pain/swelling, fevers, chills, lightheadedness. Objective Data Objective Data Vital Signs: Vital Signs Temp Pulse Resp BP Pulse Ox O2 Del Method 98.0 F 98 16 118/67 97 Room Air 05/27/24 02:45 05/27/24 02:45 05/27/24 02:45 05/27/24 02:45 05/27/24 02:45 05/27/24 02:45 Oxygen Delivery Method Room Air Weight: 214 lb 15.211 oz Body Mass Index (BMI) 33.6 Intake & Output: Intake and Output for Last 24 Hours 05/25/24 05/26/24 05/27/24 23:59 23:59 23:59 Intake Total 2360 / 2360 Output Total 3100 / 3100 Balance -740 / -740 Lab / Micro Data 05/26/24 05:00 Labs: Laboratory Results - last 24 hr 05/25/24 05:45: Syphilis Total Ab Non-reactive 05/26/24 05:00: WBC 10.4, RBC 2.87 L, Hgb 8.0 L, Hct 25.0 L, MCV 87.1, MCH 27.9, MCHC 32.0, RDW Std Deviation 41.1, RDW Coeff of [place] 13.0, Plt Count 189, MPV 10.3 ROS Constitutional Constitutional: Reports systems reviewed and no addt'l complaints, except as documented Cardiovascular Cardiovascular: Reports systems reviewed and no addt'l complaints, except as documented Respiratory/Chest Respiratory/Chest: Reports systems reviewed and no addt'l complaints, except as documented Gastrointestinal Gastrointestinal: Reports systems reviewed and no addt'l complaints, except as documented Physical Exam Const alert, oriented x3 and no apparent distress HEENT Head and Scalp: atraumatic Resp normal respiratory effort GI soft to palpation and non-tender Inspection: incision intact, healing well and drainage (none) Bimanual Exam - Vag & Uterus: uterus non-tender Uterus Palpation: uterus fundus firm (below Umbilicus) Assessment & Plan (1) Status post section: PLAN: Plan s/p LTCS PPD # 2 1. routine post care 2. breast feeding- support given 3. rh positive 4. rubella immune
[2024-05-27 08:40] VITALS: BP 119/71; PULSE 93; RESP 18; TEMP 37; O2SAT 99
[2024-05-27] MEDS: Senna/Docusate Sodium 1 Tablet PO (09:14)
[2024-05-28 14:18] LABS: Pathology Specimen OB SEE PATHOLOGY REPORT
== END 2024-05-27 10:45 | disposition home or self-care (01) | DRG 785 ==
PROVIDERS: Admitting Provider Obstetrics & Gynecology; PCP Clinical Nurse Specialist; Referring Provider Obstetrics & Gynecology; Visit Provider Obstetrics & Gynecology
PROC: 10D00Z1 Extraction of Products of Conception, Low, Open Approach (ICD-10-PCS; CPT 59514; principal; 2024-05-25 07:00)
DX: O36.63X0 Maternal care for excessive fetal growth, third trimester, not applicable or unspecified (principal); O69.1XX0 Labor and delivery complicated by cord around neck, with compression, not applicable or unspecified; O99.824 Streptococcus B carrier state complicating childbirth; Z30.2 Encounter for sterilization; Z37.0 Single live birth; Z3A.39 39 weeks gestation of pregnancy; Z87.59 Personal history of other complications of pregnancy, childbirth and the puerperium
CPT/HCPCS: 59025; 59050; 82962; 85025; 85027; 86780; 86850; 86900; 86901; 88302; 99221; J7120; A4216; G0378; J2405